=== PATIENT | male | born 1965 | race American Indian/Alaskan Native ===

== ENCOUNTER 2017-08-25 13:20 | Emergency (ER) | payer OTHER, SELFPAY ==
[2017-08-25 13:31] VITALS: BP 172/100; PULSE 73; RESP 16; TEMP 36.8; O2SAT 99
--- NOTE | 2017-08-25 14:17 | PC.NURSE ---
pt reports having three shots of expresso and coffee before dizziness occurred.
[2017-08-25 14:30] VITALS: BP 144/88; PULSE 79; RESP 20; O2SAT 98
--- NOTE | 2017-08-25 14:39 | ED.DIZZY ---
HPI - Dizziness General Chief Complaint: Dizziness Stated Complaint: HIGH BLOOD PRESSURE,FEELING FAINT Time Seen by Provider: 08/25/17 14:33 Source: patient Mode of arrival: ambulatory Limitations: no limitations History of Present Illness HPI Narrative: Patient is a 51-year-old male presenting with lightheadedness. He states that while working today he felt extremely dizzy lightheaded on room very nauseous. He then had his blood pressure taken on it was 230/110. He admits that he had 3 cups of coffee and a quadruple shot of expressive which is something he does not normally do usually only has 1 cup of coffee. He also had not eaten since 4:00 a.m. this morning. He overall is feeling much better. Our he does state that he was taken off his lisinopril a few months back while he was dieting and exercising he has not been exercising as much she is worried that the blood pressure tripped up. A few days ago he recheck his blood pressure at 1 more and it was again with a systolic of 140. He would like to be restarted on his lisinopril. MD complaint: lightheadedness Related Data Home Medications Medication Instructions Recorded Confirmed methadone [Methadose] 40 mg PO #0 03/19/16 Previous Rx's Medication Instructions Recorded ondansetron [Zofran ODT] 4 mg SUBLINGUAL Q6HP PRN #20 odt 03/20/16 lisinopril 5 mg PO DAILY #30 tab 08/25/17 Allergies Allergy/AdvReac Type Severity Reaction Status Date / Time codeine [CODEINE] Allergy Unknown Unverified 06/19/17 13:05 Review of Systems Review of Systems GENERAL: Denies chills, fatigue, malaise, fever, sweats, travel HEENT: Denies sinus pain, ear pain, sore throat, difficulty swallowing, neck pain RESPIRATORY: Denies dyspnea, cough, wheezing, hemoptysis, sputum. CARDIOVASCULAR: Denies chest pain, palpitations, orthopnea, edema GASTROINTESTINAL: Denies nausea, vomiting, abdominal pain, diarrhea, constipation, melena. : Denies dysuria, frequency, incontinence, hematuria, urinary retention, flank pain. MUSCULOSKELETAL: Denies weakness, joint pain, or bony pain SKIN: No rash, no erythema, no pruritus NEUROLOGIC: See HPI PSYCHIATRIC: No concerning psychosocial issues. 12 point review of systems is negative except for those stated above and HPI [facility] Medical History Hypertension (Acute) Exam Initial Vital Signs Initial Vital Signs: Vital Signs Temperature 98.2 F 08/25/17 13:31 Pulse Rate 73 08/25/17 13:31 Respiratory Rate 16 08/25/17 13:31 Blood Pressure 172/100 H 08/25/17 13:31 Pulse Oximetry 99 08/25/17 13:31 GENERAL: Well-appearing, well-nourished and in no acute distress. HEENT: Head atraumatic,EOMI, pupils reactive, face symmetric, moist mucous membranes CARDIOVASCULAR: Regular rate and rhythm without murmurs, rubs or gallops. RESPIRATORY: Breath sounds equal bilaterally, no wheezes rales or rhonchi. ABDOMEN: Soft, nontender. Normoactive bowel sounds all 4 quadrants. No guarding or rebound. EXTREMITIES: Normal range of motion, no clubbing or edema. Neurovascularly intact NEUROLOGICAL: Alert and oriented x4.Normal gait and speech. Cranial nerves II through XII grossly intact. Good [id number], good [id number], strength equal bilaterally, no dysarthria or aphasia, sensation in tact to soft touch bilaterally, no visual changes, no facial droop SKIN: Warm, dry, no laceration, no petechiae, no rashes or lesions. Course Orders Ordered: ED Orders 08/25/17 13:45 EKG-12 Lead Stat Vital Signs - 8 hr 08/25/17 13:31 08/25/17 14:30 08/25/17 15:04 Temperature 98.2 F Pulse Rate 73 79 91 H Respiratory Rate 16 20 20 Blood Pressure 172/100 H 144/88 H Blood Pressure [Right Arm] 144/88 H Pulse Oximetry 99 98 97 [facility] - Dizziness ECG Data Prior ECG tracings: available for review Interpretation: Normal sinus rhythm rate [address] changes similar to previous EKG on in 2017 [facility] Narrative Medical decision making narrative: Patient is ambulatory he is feeling much better. We discussed possible blood work and IV however at this time he does not feel like indicated he really thinks that is likely due to caffeine and I do agree. He did not pass out there is no syncopal episode he got extremely dizzy lightheaded. Discharge Plan Departure Patient Disposition: Home, Self-Care Clinical Impression: Near syncope Discharge Date/Time: 08/25/17 15:05 Interventions: ED Discharge Assessment Last Done: 08/25/17 15:04 Instructions: DI for Syncope in Adults (Fainting) Activity Restrictions/Additional Instructions: *You have been diagnosed with near syncope, close to pain *What to do: Likely due to excess caffeine today, please see her primary care provider in regards to further blood pressure management I will refill and start the lisinopril medication as previously prescribed *Continue to take medications as directed Restart lisinopril at 5 mg once a day *Follow up with your primary care provider in 2-3 days *Return to ER if you should have any new, worsening or concerning symptoms Prescriptions: New lisinopril 5 mg tablet 5 mg PO DAILY Qty: 30 RF: 0 No Action methadone [Methadose] 40 MG tablet,soluble 40 mg PO Qty: 0 RF: 0 ondansetron [Zofran ODT] 4 MG tablet,disintegrating 4 mg Sublingual Q6HP PRNQty: 20 RF: 0 Referrals: Mady Kumar MD [Primary Care Provider] -
--- NOTE | 2017-08-25 14:59 | ED_ITS ---
HPI - Dizziness General Chief Complaint: Dizziness Stated Complaint: HIGH BLOOD PRESSURE,FEELING FAINT Time Seen by Provider: 08/25/17 14:33 Source: patient Mode of arrival: ambulatory Limitations: no limitations History of Present Illness HPI Narrative: Patient is a 51-year-old male presenting with lightheadedness. He states that while working today he felt extremely dizzy lightheaded on room very nauseous. He then had his blood pressure taken on it was 230/110. He admits that he had 3 cups of coffee and a quadruple shot of expressive which is something he does not normally do usually only has 1 cup of coffee. He also had not eaten since 4:00 a.m. this morning. He overall is feeling much better. Our he does state that he was taken off his lisinopril a few months back while he was dieting and exercising he has not been exercising as much she is worried that the blood pressure tripped up. A few days ago he recheck his blood pressure at 1 more and it was again with a systolic of 140. He would like to be restarted on his lisinopril. MD complaint: lightheadedness Related Data Home Medications Medication Instructions Recorded Confirmed methadone [Methadose] 40 mg PO #0 03/19/16 Previous Rx's Medication Instructions Recorded ondansetron [Zofran ODT] 4 mg SUBLINGUAL Q6HP PRN #20 odt 03/20/16 lisinopril 5 mg PO DAILY #30 tab 08/25/17 Allergies Allergy/AdvReac Type Severity Reaction Status Date / Time codeine [CODEINE] Allergy Unknown Unverified 06/19/17 13:05 Review of Systems Review of Systems GENERAL: Denies chills, fatigue, malaise, fever, sweats, travel HEENT: Denies sinus pain, ear pain, sore throat, difficulty swallowing, neck pain RESPIRATORY: Denies dyspnea, cough, wheezing, hemoptysis, sputum. CARDIOVASCULAR: Denies chest pain, palpitations, orthopnea, edema GASTROINTESTINAL: Denies nausea, vomiting, abdominal pain, diarrhea, constipation, melena. : Denies dysuria, frequency, incontinence, hematuria, urinary retention, flank pain. MUSCULOSKELETAL: Denies weakness, joint pain, or bony pain SKIN: No rash, no erythema, no pruritus NEUROLOGIC: See HPI PSYCHIATRIC: No concerning psychosocial issues. 12 point review of systems is negative except for those stated above and HPI [facility] Medical History Hypertension (Acute) Exam Initial Vital Signs Initial Vital Signs: Vital Signs Temperature 98.2 F 08/25/17 13:31 Pulse Rate 73 08/25/17 13:31 Respiratory Rate 16 08/25/17 13:31 Blood Pressure 172/100 H 08/25/17 13:31 Pulse Oximetry 99 08/25/17 13:31 GENERAL: Well-appearing, well-nourished and in no acute distress. HEENT: Head atraumatic,EOMI, pupils reactive, face symmetric, moist mucous membranes CARDIOVASCULAR: Regular rate and rhythm without murmurs, rubs or gallops. RESPIRATORY: Breath sounds equal bilaterally, no wheezes rales or rhonchi. ABDOMEN: Soft, nontender. Normoactive bowel sounds all 4 quadrants. No guarding or rebound. EXTREMITIES: Normal range of motion, no clubbing or edema. Neurovascularly intact NEUROLOGICAL: Alert and oriented x4.Normal gait and speech. Cranial nerves II through XII grossly intact. Good lhtqkv-[id number]-srzb, good wejw-yt-ajee, strength equal bilaterally, no dysarthria or aphasia, sensation in tact to soft touch bilaterally, no visual changes, no facial droop SKIN: Warm, dry, no laceration, no petechiae, no rashes or lesions. Course Orders Ordered: ED Orders 08/25/17 13:45 EKG-12 Lead Stat Vital Signs - 8 hr 08/25/17 13:31 08/25/17 14:30 08/25/17 15:04 Temperature 98.2 F Pulse Rate 73 79 91 H Respiratory Rate 16 20 20 Blood Pressure 172/100 H 144/88 H Blood Pressure [Right Arm] 144/88 H Pulse Oximetry 99 98 97 [facility] - Dizziness ECG Data Prior ECG tracings: available for review Interpretation: Normal sinus rhythm rate [address] changes similar to previous EKG on in 2017 [facility] Narrative Medical decision making narrative: Patient is ambulatory he is feeling much better. We discussed possible blood work and IV however at this time he does not feel like indicated he really thinks that is likely due to caffeine and I do agree. He did not pass out there is no syncopal episode he got extremely dizzy lightheaded. Discharge Plan Departure Patient Disposition: Home, Self-Care Clinical Impression: Near syncope Discharge Date/Time: 08/25/17 15:05 Interventions: ED Discharge Assessment Last Done: 08/25/17 15:04 Instructions: DI for Syncope in Adults (Fainting) Activity Restrictions/Additional Instructions: *You have been diagnosed with near syncope, close to pain *What to do: Likely due to excess caffeine today, please see her primary care provider in regards to further blood pressure management I will refill and start the lisinopril medication as previously prescribed *Continue to take medications as directed Restart lisinopril at 5 mg once a day *Follow up with your primary care provider in 2-3 days *Return to ER if you should have any new, worsening or concerning symptoms Prescriptions: New lisinopril 5 mg tablet 5 mg PO DAILY Qty: 30 RF: 0 No Action methadone [Methadose] 40 MG tablet,soluble 40 mg PO Qty: 0 RF: 0 ondansetron [Zofran ODT] 4 MG tablet,disintegrating 4 mg Sublingual Q6HP PRNQty: 20 RF: 0 Referrals: Mady Kumar MD [Primary Care Provider] -
[2017-08-25 15:04] VITALS: BP 144/88; PULSE 91; RESP 20; O2SAT 97
== END 2017-08-25 15:05 | disposition home or self-care (01) ==
PROVIDERS: Emergency Provider Emergency Medicine; Family Provider Family Medicine; PCP Family Medicine
DX: R55 Syncope and collapse (principal)
CPT/HCPCS: 93005; 99282; 99283

== ENCOUNTER 2018-02-17 14:35 | Inpatient (IN) | payer OTHER, SELFPAY ==
[2018-02-17] VITALS (18 sets, daily range): BP systolic 100–132; BP diastolic 59–90; PULSE 74–95; RESP 11–18; TEMP 36.6–37.6; O2SAT 13–100; BMI 40.7
--- NOTE | 2018-02-17 | PATH_ITS ---
[facility] Accession Number: [id number] . 01 Material submitted: . APPENDIX . 02 Diagnosis: Appendix, Appendectomy: Acute suppurative appendicitis with microscopic perforation and serositis. Negative for dysplasia or malignancy. [facility]/02/19/2018 . 02 Electronically signed: . Meryl Reynolds MD, Pathologist NPI- [id number] . 01 Gross description: . Received in formalin, labeled appendix, is an intact appendix (length-8.0 cm, diameter-0.8 cm) with holbrook-pink smooth and shiny serosa and attached mesoappendix (up to 2.2 cm in depth). The resection margin is received opened. The lumen contains pineda-pink solid soft material. The wall is up to 0.2 cm thick. No nodules, masses or lesions are identified. The resection margin is inked black. Section code: (A1) resection margin en face and three additional serial sections; (A2) one-half of the bivalved tip. ([id number]) /[facility] . 02 Pathologist provided ICD-10: K35.20 . 02 CPT . 792881 Performed at: 01 [facility] [address], [place], [place] [id number] MD Sameer Mtz MD Phone: [phone] Performed at: 02 [facility] [address] [place], [place] [id number] MD Meryl Reynolds MD Phone: [phone]
--- NOTE | 2018-02-17 14:36 | ED.ABDPAIN ---
HPI - Abdominal Pain <JUNO Lin - Last Filed: 02/17/18 21:27> General Chief Complaint: Abdominal Pain Stated Complaint: middle abdomen pain Time Seen by Provider: 02/17/18 14:36 Source: patient Mode of arrival: ambulatory Limitations: no limitations History of Present Illness HPI narrative: 52 year old with history of hypertension and is a nonsmoker here for complaint of pain to his right lower quadrant that started last night. He denies any trauma to the area. He reports increased pain with movement of the torso. He has had some nausea however no vomiting. No fevers. No urinary symptoms. Last bowel movement was yesterday and was unremarkable. He denies any prior abdominal surgeries. He has only had fluids today is at decreased appetite today. MD complaint: abdominal pain Related Data Home Medications Medication Instructions Recorded Confirmed ibuprofen 1 dose PO PRN PRN 02/17/18 02/17/18 Previous Rx's Medication Instructions Recorded lisinopril 5 mg PO DAILY #30 tab 08/25/17 docusate sodium [Colace] 100 mg PO BID #14 cap 02/20/18 levofloxacin [Levaquin] 750 mg PO DAILY #7 tab 02/20/18 metronidazole [Flagyl] 500 mg PO TID #21 tab 02/20/18 oxycodone 5 mg PO Q3H PRN #30 tab 02/20/18 sennosides [Senokot] 8.6 mg PO BEDTIME #10 tab 02/20/18 Allergies Allergy/AdvReac Type Severity Reaction Status Date / Time codeine [CODEINE] Allergy Unknown Hives Verified 02/17/18 14:57 Review of Systems <JUNO Lin - Last Filed: 02/17/18 21:27> Constitutional Denies chills, Denies fever(s), Denies lethargy and Denies weakness ENT Ears, Nose, Mouth, and Throat: Denies change in voice, Denies neck pain and Denies sore throat Cardiovascular Denies chest pain, Denies irregular heart rhythm, Denies lightheadedness, Denies palpitations, Denies dyspnea, Denies dyspnea on exertion and Denies orthopnea Respiratory Denies cough, Denies dyspnea, Denies dyspnea on exertion and Denies wheezing Gastrointestinal Gastrointestinal: Reports abdominal pain Genitourinary Denies hematuria, Denies flank pain, Denies urinary incontinence and Denies urinary urgency Musculoskeletal Denies neck pain Integumentary/Breasts Denies pruritus, Denies erythema, Denies rash and Denies wounds Neurologic Denies confusion and Denies weakness Psychiatric Denies anxiety, Denies confusion, Denies depression, Denies homicidal ideation and Denies suicidal ideation Endocrine Denies palpitations Hematologic/Lymphatic Denies easy bruising Allergic/Immunologic Denies wheezing Exam <JUNO Lin - Last Filed: 02/17/18 21:27> Initial Vital Signs Initial Vital Signs: Vital Signs Temperature 99.1 F 02/17/18 14:42 Pulse Rate 95 H 02/17/18 14:42 Respiratory Rate 16 02/17/18 14:42 Blood Pressure 129/77 02/17/18 14:42 Pulse Oximetry 98 02/17/18 14:42 Const General: cooperative and well developed Nutritional Appearance: well nourished Orientation: alert, awake, oriented x3 and not confused HENMT Mouth: oral mucosae normal and moist mucous membranes Eyes General: appearance normal, both eyes and all related structures Conjunctivae: conjunctivae normal Sclera: sclerae normal Pupils: PERRL EOM: EOM intact bilaterally Resp Effort & Inspection: normal respiratory effort, able to speak in complete sentences, no respiratory distress and no use of accessory muscles Auscultation: clear to auscultation bilaterally, no rales, no rhonchi and no wheezes Cardio Rate: regular rate Rhythm: regular rhythm Heart Sounds: no click, no gallops, no murmurs and no rubs GI Inspection: non-distended Palpation: soft, no hepatosplenomegaly, No guarding, No pulsatile mass and tender (Tenderness to the umbilical and right lower quadrant. Positive rebound tenderness) Auscultation: normal bowel sounds General: No CVA tenderness Neuro General: alert, oriented x3, gait normal and no focal motor deficits Speech: speech normal <River Corona DO - Last Filed: 02/21/18 20:47> Initial Vital Signs Initial Vital Signs: Vital Signs Temperature 99.1 F 02/17/18 14:42 Pulse Rate 95 H 02/17/18 14:42 Respiratory Rate 16 02/17/18 14:42 Blood Pressure 129/77 02/17/18 14:42 Pulse Oximetry 98 02/17/18 14:42 Course <JUNO Lin - Last Filed: 02/17/18 21:27> Orders Ordered: Discontinued Medications Acetaminophen (Tylenol) 650 mg PO Q6HR PRN PRN Reason: As Needed for Fever/Mild Pain Last Admin: 02/19/18 14:50 Dose: 325 mg Bupivacaine HCl/Epinephrine Bitart (Sensorcaine 0.5% W/ Epi (Pf)) 30 ml INJ NOW ONE Stop: 02/17/18 17:35 Last Admin: 02/17/18 17:35 Dose: 15 ml Sodium Chloride 1,000 ml/ (Bacitracin 50,000 unit) 0 ml IRR NOW ONE Stop: 02/17/18 17:35 Last Admin: 02/17/18 17:35 Dose: 50,000 irrig.soln Enoxaparin Sodium (Lovenox) 40 mg SUBCUT DAILY [facility] Last Admin: 02/20/18 09:02 Dose: 40 mg Admin: 02/19/18 08:47 Dose: 40 mg Admin: 02/18/18 08:26 Dose: 40 mg Fentanyl (Sublimaze) 25 mcg IV Q5MIN PRN PRN Reason: Pain, Mild (1-3) Fentanyl (Sublimaze) 50 mcg IV Q5MIN PRN PRN Reason: Pain, Moderate (4-6) Last Admin: 02/17/18 18:28 Dose: 50 mcg Admin: 02/17/18 18:20 Dose: 50 mcg Fentanyl (Sublimaze) 100 mcg IV Q5MIN PRN PRN Reason: Pain, Severe (7-10) Hydromorphone HCl (Dilaudid) 1 mg IV NOW ONE Stop: 02/17/18 14:49 Last Admin: 02/17/18 15:07 Dose: 1 mg Hydromorphone HCl (Dilaudid) 1 mg IV Q4HR PRN PRN Reason: Pain, Moderate (4-6) Last Admin: 02/18/18 11:40 Dose: 1 mg Admin: 02/18/18 01:13 Dose: 1 mg Admin: 02/17/18 19:41 Dose: 1 mg Sodium Chloride (Normal Saline 0.9%) 1,000 mls @ 1,000 mls/hr IV BOLUS ONE Stop: 02/17/18 15:47 Last Infusion: 02/17/18 16:39 Dose: 0 mls/hr Admin: 02/17/18 15:07 Dose: 1,000 mls/hr Lactated Ringer's (Lactated Ringers) 1,000 mls @ 100 mls/hr IV NOW ONE Stop: 02/18/18 03:17 Last Infusion: 02/17/18 19:23 Dose: 0 mls/hr Admin: 02/17/18 18:21 Dose: 100 mls/hr Infusion: 02/17/18 18:21 Dose: 100 mls/hr Admin: 02/17/18 17:05 Dose: 100 mls/hr Ceftriaxone Sodium/Dextrose (Rocephin) 2 gm in 50 mls @ 100 mls/hr IV NOW ONE Stop: 02/17/18 18:03 Last Infusion: 02/17/18 17:20 Dose: 0 mls/hr Admin: 02/17/18 17:14 Dose: 100 mls/hr Piperacillin/Tazobactam/Dextrose (Zosyn) 3.375 gm in 50 mls @ 100 mls/hr IV Q6H [facility] Last Admin: 02/20/18 12:50 Dose: 100 mls/hr Infusion: 02/20/18 09:01 Dose: 100 mls/hr Admin: 02/20/18 06:10 Dose: 100 mls/hr Infusion: 02/20/18 00:20 Dose: 0 mls/hr Admin: 02/19/18 23:41 Dose: 100 mls/hr Infusion: 02/19/18 19:29 Dose: 0 mls/hr Admin: 02/19/18 18:22 Dose: 100 mls/hr Infusion: 02/19/18 13:04 Dose: 100 mls/hr Admin: 02/19/18 11:30 Dose: 100 mls/hr Infusion: 02/19/18 08:44 Dose: 100 mls/hr Admin: 02/19/18 05:33 Dose: 100 mls/hr Infusion: 02/19/18 00:35 Dose: 0 mls/hr Admin: 02/19/18 00:05 Dose: 100 mls/hr Infusion: 02/18/18 20:10 Dose: 100 mls/hr Admin: 02/18/18 19:37 Dose: 100 mls/hr Infusion: 02/18/18 13:20 Dose: 0 mls/hr Admin: 02/18/18 12:46 Dose: 100 mls/hr Infusion: 02/18/18 07:25 Dose: 0 mls/hr Admin: 02/18/18 05:56 Dose: 100 mls/hr Infusion: 02/18/18 00:18 Dose: 0 mls/hr Admin: 02/17/18 23:38 Dose: 100 mls/hr Infusion: 02/17/18 19:28 Dose: 0 mls/hr Admin: 02/17/18 18:40 Dose: 100 mls/hr Dextrose/Sodium Chloride (Dextrose 5%-0.45% Ns) 1,000 mls @ 100 mls/hr IV CONT [facility] Last Infusion: 02/19/18 13:08 Dose: 100 mls/hr Admin: 02/18/18 21:58 Dose: 100 mls/hr Infusion: 02/18/18 18:23 Dose: 100 mls/hr Admin: 02/18/18 08:23 Dose: 100 mls/hr Infusion: 02/18/18 05:41 Dose: 100 mls/hr Admin: 02/17/18 19:41 Dose: 100 mls/hr Influenza Virus Vaccine (Flu Vaccine) 0.5 ml IM .ONCE ONE Stop: 02/18/18 09:01 Last Admin: 02/19/18 09:17 Dose: Lisinopril (Zestril) 5 mg PO DAILY [facility] Last Admin: 02/20/18 09:00 Dose: 5 mg Admin: 02/19/18 08:47 Dose: 5 mg Ondansetron HCl (Zofran) 4 mg IV NOW ONE Stop: 02/17/18 14:49 Last Admin: 02/17/18 15:07 Dose: 4 mg Ondansetron HCl (Zofran) 4 mg IV NOW PRN PRN Reason: Nausea And Vomiting Ondansetron HCl (Zofran) 4 mg IV Q6HR PRN PRN Reason: Nausea And Vomiting Last Admin: 02/18/18 16:30 Dose: 4 mg Oxycodone/Acetaminophen (Percocet 5/325) 1 tab PO Q30MIN PRN PRN Reason: Mild or moderate pain Oxycodone/Acetaminophen (Percocet 5/325) 1 tab PO Q4HR PRN PRN Reason: Pain, Moderate (4-6) Last Admin: 02/18/18 00:18 Dose: 1 tab Admin: 02/17/18 19:58 Dose: 1 tab Oxycodone/Acetaminophen (Percocet 5/325) 2 tab PO Q4HR PRN PRN Reason: Pain, Severe (7-10) Last Admin: 02/20/18 12:54 Dose: 1 tab Admin: 02/20/18 09:00 Dose: 1 tab Admin: 02/20/18 02:55 Dose: 1 tab Admin: 02/19/18 21:26 Dose: 2 tab Admin: 02/19/18 17:29 Dose: 1 tab Admin: 02/19/18 13:22 Dose: 1 tab Admin: 02/19/18 09:14 Dose: 1 tab Admin: 02/19/18 05:32 Dose: 1 tab Admin: 02/19/18 01:30 Dose: 1 tab Admin: 02/18/18 21:23 Dose: 1 tab Admin: 02/18/18 16:37 Dose: 1 tab Admin: 02/18/18 12:46 Dose: 2 tab Admin: 02/18/18 08:25 Dose: 2 tab Admin: 02/18/18 04:02 Dose: 2 tab Ranitidine HCl (Zantac) 150 mg PO BID [facility] Last Admin: 02/20/18 09:01 Dose: 150 mg Admin: 02/19/18 20:20 Dose: Not Given Admin: 02/19/18 08:47 Dose: 150 mg Admin: 02/18/18 21:23 Dose: 150 mg Admin: 02/18/18 08:25 Dose: 150 mg Admin: 02/17/18 19:56 Dose: 150 mg Sodium Chloride (Normal Saline 0.9% Flush) 10 ml IV BID [facility] Last Admin: 02/20/18 09:01 Dose: 10 ml Sodium Chloride (Normal Saline 0.9% Flush) 10 ml IV PRN PRN PRN Reason: Flush Vital Signs - 8 hr 02/17/18 14:42 02/17/18 15:01 02/17/18 15:07 Temperature 99.1 F 99.4 F Pulse Rate 95 H 81 Respiratory Rate 16 15 Blood Pressure 129/77 Blood Pressure [Right Arm] 121/72 Pulse Oximetry 98 96 02/17/18 16:00 02/17/18 16:44 02/17/18 18:06 Temperature 99.7 F H Pulse Rate 74 77 88 Respiratory Rate 16 16 11 L Blood Pressure 132/90 Blood Pressure [Right Arm] 121/68 119/64 Pulse Oximetry 99 100 98 02/17/18 18:11 02/17/18 18:15 02/17/18 18:20 Temperature Pulse Rate 85 85 82 Respiratory Rate 12 16 Blood Pressure 119/59 L 120/80 113/79 Blood Pressure [Right Arm] Pulse Oximetry 13 L 97 92 02/17/18 18:35 02/17/18 18:50 02/17/18 19:00 Temperature Pulse Rate 80 78 82 Respiratory Rate 13 15 18 Blood Pressure 105/66 107/73 110/74 Blood Pressure [Right Arm] Pulse Oximetry 97 93 93 02/17/18 19:19 Temperature 97.9 F Pulse Rate 81 Respiratory Rate 16 Blood Pressure 111/63 Blood Pressure [Right Arm] Pulse Oximetry 92 <River Corona DO - Last Filed: 02/21/18 20:47> Orders Ordered: Discontinued Medications Acetaminophen (Tylenol) 650 mg PO Q6HR PRN PRN Reason: As Needed for Fever/Mild Pain Last Admin: 02/19/18 14:50 Dose: 325 mg Bupivacaine HCl/Epinephrine Bitart (Sensorcaine 0.5% W/ Epi (Pf)) 30 ml INJ NOW ONE Stop: 02/17/18 17:35 Last Admin: 02/17/18 17:35 Dose: 15 ml Sodium Chloride 1,000 ml/ (Bacitracin 50,000 unit) 0 ml IRR NOW ONE Stop: 02/17/18 17:35 Last Admin: 02/17/18 17:35 Dose: 50,000 irrig.soln Enoxaparin Sodium (Lovenox) 40 mg SUBCUT DAILY [facility] Last Admin: 02/20/18 09:02 Dose: 40 mg Admin: 02/19/18 08:47 Dose: 40 mg Admin: 02/18/18 08:26 Dose: 40 mg Fentanyl (Sublimaze) 25 mcg IV Q5MIN PRN PRN Reason: Pain, Mild (1-3) Fentanyl (Sublimaze) 50 mcg IV Q5MIN PRN PRN Reason: Pain, Moderate (4-6) Last Admin: 02/17/18 18:28 Dose: 50 mcg Admin: 02/17/18 18:20 Dose: 50 mcg Fentanyl (Sublimaze) 100 mcg IV Q5MIN PRN PRN Reason: Pain, Severe (7-10) Hydromorphone HCl (Dilaudid) 1 mg IV NOW ONE Stop: 02/17/18 14:49 Last Admin: 02/17/18 15:07 Dose: 1 mg Hydromorphone HCl (Dilaudid) 1 mg IV Q4HR PRN PRN Reason: Pain, Moderate (4-6) Last Admin: 02/18/18 11:40 Dose: 1 mg Admin: 02/18/18 01:13 Dose: 1 mg Admin: 02/17/18 19:41 Dose: 1 mg Sodium Chloride (Normal Saline 0.9%) 1,000 mls @ 1,000 mls/hr IV BOLUS ONE Stop: 02/17/18 15:47 Last Infusion: 02/17/18 16:39 Dose: 0 mls/hr Admin: 02/17/18 15:07 Dose: 1,000 mls/hr Lactated Ringer's (Lactated Ringers) 1,000 mls @ 100 mls/hr IV NOW ONE Stop: 02/18/18 03:17 Last Infusion: 02/17/18 19:23 Dose: 0 mls/hr Admin: 02/17/18 18:21 Dose: 100 mls/hr Infusion: 02/17/18 18:21 Dose: 100 mls/hr Admin: 02/17/18 17:05 Dose: 100 mls/hr Ceftriaxone Sodium/Dextrose (Rocephin) 2 gm in 50 mls @ 100 mls/hr IV NOW ONE Stop: 02/17/18 18:03 Last Infusion: 02/17/18 17:20 Dose: 0 mls/hr Admin: 02/17/18 17:14 Dose: 100 mls/hr Piperacillin/Tazobactam/Dextrose (Zosyn) 3.375 gm in 50 mls @ 100 mls/hr IV Q6H [facility] Last Admin: 02/20/18 12:50 Dose: 100 mls/hr Infusion: 02/20/18 09:01 Dose: 100 mls/hr Admin: 02/20/18 06:10 Dose: 100 mls/hr Infusion: 02/20/18 00:20 Dose: 0 mls/hr Admin: 02/19/18 23:41 Dose: 100 mls/hr Infusion: 02/19/18 19:29 Dose: 0 mls/hr Admin: 02/19/18 18:22 Dose: 100 mls/hr Infusion: 02/19/18 13:04 Dose: 100 mls/hr Admin: 02/19/18 11:30 Dose: 100 mls/hr Infusion: 02/19/18 08:44 Dose: 100 mls/hr Admin: 02/19/18 05:33 Dose: 100 mls/hr Infusion: 02/19/18 00:35 Dose: 0 mls/hr Admin: 02/19/18 00:05 Dose: 100 mls/hr Infusion: 02/18/18 20:10 Dose: 100 mls/hr Admin: 02/18/18 19:37 Dose: 100 mls/hr Infusion: 02/18/18 13:20 Dose: 0 mls/hr Admin: 02/18/18 12:46 Dose: 100 mls/hr Infusion: 02/18/18 07:25 Dose: 0 mls/hr Admin: 02/18/18 05:56 Dose: 100 mls/hr Infusion: 02/18/18 00:18 Dose: 0 mls/hr Admin: 02/17/18 23:38 Dose: 100 mls/hr Infusion: 02/17/18 19:28 Dose: 0 mls/hr Admin: 02/17/18 18:40 Dose: 100 mls/hr Dextrose/Sodium Chloride (Dextrose 5%-0.45% Ns) 1,000 mls @ 100 mls/hr IV CONT [facility] Last Infusion: 02/19/18 13:08 Dose: 100 mls/hr Admin: 02/18/18 21:58 Dose: 100 mls/hr Infusion: 02/18/18 18:23 Dose: 100 mls/hr Admin: 02/18/18 08:23 Dose: 100 mls/hr Infusion: 02/18/18 05:41 Dose: 100 mls/hr Admin: 02/17/18 19:41 Dose: 100 mls/hr Influenza Virus Vaccine (Flu Vaccine) 0.5 ml IM .ONCE ONE Stop: 02/18/18 09:01 Last Admin: 02/19/18 09:17 Dose: Lisinopril (Zestril) 5 mg PO DAILY [facility] Last Admin: 02/20/18 09:00 Dose: 5 mg Admin: 02/19/18 08:47 Dose: 5 mg Ondansetron HCl (Zofran) 4 mg IV NOW ONE Stop: 02/17/18 14:49 Last Admin: 02/17/18 15:07 Dose: 4 mg Ondansetron HCl (Zofran) 4 mg IV NOW PRN PRN Reason: Nausea And Vomiting Ondansetron HCl (Zofran) 4 mg IV Q6HR PRN PRN Reason: Nausea And Vomiting Last Admin: 02/18/18 16:30 Dose: 4 mg Oxycodone/Acetaminophen (Percocet 5/325) 1 tab PO Q30MIN PRN PRN Reason: Mild or moderate pain Oxycodone/Acetaminophen (Percocet 5/325) 1 tab PO Q4HR PRN PRN Reason: Pain, Moderate (4-6) Last Admin: 02/18/18 00:18 Dose: 1 tab Admin: 02/17/18 19:58 Dose: 1 tab Oxycodone/Acetaminophen (Percocet 5/325) 2 tab PO Q4HR PRN PRN Reason: Pain, Severe (7-10) Last Admin: 02/20/18 12:54 Dose: 1 tab Admin: 02/20/18 09:00 Dose: 1 tab Admin: 02/20/18 02:55 Dose: 1 tab Admin: 02/19/18 21:26 Dose: 2 tab Admin: 02/19/18 17:29 Dose: 1 tab Admin: 02/19/18 13:22 Dose: 1 tab Admin: 02/19/18 09:14 Dose: 1 tab Admin: 02/19/18 05:32 Dose: 1 tab Admin: 02/19/18 01:30 Dose: 1 tab Admin: 02/18/18 21:23 Dose: 1 tab Admin: 02/18/18 16:37 Dose: 1 tab Admin: 02/18/18 12:46 Dose: 2 tab Admin: 02/18/18 08:25 Dose: 2 tab Admin: 02/18/18 04:02 Dose: 2 tab Ranitidine HCl (Zantac) 150 mg PO BID [facility] Last Admin: 02/20/18 09:01 Dose: 150 mg Admin: 02/19/18 20:20 Dose: Not Given Admin: 02/19/18 08:47 Dose: 150 mg Admin: 02/18/18 21:23 Dose: 150 mg Admin: 02/18/18 08:25 Dose: 150 mg Admin: 02/17/18 19:56 Dose: 150 mg Sodium Chloride (Normal Saline 0.9% Flush) 10 ml IV BID [facility] Last Admin: 02/20/18 09:01 Dose: 10 ml Sodium Chloride (Normal Saline 0.9% Flush) 10 ml IV PRN PRN PRN Reason: Flush Vital Signs - 8 hr 02/17/18 14:42 02/17/18 15:01 02/17/18 15:07 Temperature 99.1 F 99.4 F Pulse Rate 95 H 81 Respiratory Rate 16 15 Blood Pressure 129/77 Blood Pressure [Right Arm] 121/72 Pulse Oximetry 98 96 02/17/18 16:00 02/17/18 16:44 02/17/18 18:06 Temperature 99.7 F H Pulse Rate 74 77 88 Respiratory Rate 16 16 11 L Blood Pressure 132/90 Blood Pressure [Right Arm] 121/68 119/64 Pulse Oximetry 99 100 98 02/17/18 18:11 02/17/18 18:15 02/17/18 18:20 Temperature Pulse Rate 85 85 82 Respiratory Rate 12 16 Blood Pressure 119/59 L 120/80 113/79 Blood Pressure [Right Arm] Pulse Oximetry 13 L 97 92 02/17/18 18:35 02/17/18 18:50 02/17/18 19:00 Temperature Pulse Rate 80 78 82 Respiratory Rate 13 15 18 Blood Pressure 105/66 107/73 110/74 Blood Pressure [Right Arm] Pulse Oximetry 97 93 93 02/17/18 19:19 Temperature 97.9 F Pulse Rate 81 Respiratory Rate 16 Blood Pressure 111/63 Blood Pressure [Right Arm] Pulse Oximetry 92 MDM - Abdominal Pain <JUNO Lin - Last Filed: 02/17/18 21:27> Differential Diagnosis Differential diagnosis: Likely abdominal pain and acute appendicitis Lab Data Result diagrams: 02/17/18 14:50 02/17/18 14:50 Lab Results 02/17/18 02/17/18 02/17/18 Range/Units 14:50 14:50 14:50 WBC 13.0 H (4.5-11.0) X10^3/uL RBC 5.51 (4.5-5.9) X10^6/uL Hgb 15.3 (13.5-17.5) g/dL Hct 44.6 (41-53) % MCV 81.0 (80-100) fL MCH 27.7 (26-34) PG MCHC 34.2 (30-36) % RDW 13.9 (11.6-14.8) % Plt Count 382 (150-400) X10^3/uL Neut % (Auto) 72.7 (50-75) % Lymph % (Auto) 18.8 L (25-40) % [place] % (Auto) 7.7 (3-14) % Eos % (Auto) 0.4 L (2-4) % Baso % (Auto) 0.4 (0-2) % Neut # (Auto) 9500 H (2291-4765) /uL Sodium 140 (137-145) mmol/L Potassium 4.3 (3.4-5.1) mmol/L Chloride 101 (98-107) mmol/L Carbon Dioxide 25 (22-32) mmol/L BUN 14 (9-20) mg/dL Creatinine 1.10 (0.66-1.25) mg/dL Estimated GFR > 60.0 (>60) mL/min BUN/Creatinine Ratio 12.7 (6-22) Glucose 106 H (70-100) mg/dL Calcium 9.0 (8.4-10.2) mg/dL Total Bilirubin 0.6 (0.2-1.3) mg/dL AST 23 (17-59) IU/L ALT 34 (21-72) IU/L Alkaline Phosphatase 92 (38-126) U/L Total Protein 8.2 (6.3-8.2) g/dL Albumin 4.8 (3.5-5.0) g/dL Globulin 3.4 (1.7-4.1) g/dL Albumin/Globulin Ratio 1.4 (1.0-2.8) Lipase 78 (23-300) U/L Urine Color Yellow Urine Appearance Clear Urine pH 8.0 (4.5-8.0) Ur Specific [place] 1.015 (1.000-1.035) Urine Protein Negative (Negative) Urine Glucose (UA) Negative (Normal) g/dL Urine Ketones Negative (NEGATIVE) Urine Occult Blood Negative (Negative) Urine Nitrate Negative (Negative) Urine Bilirubin Negative (NEGATIVE) Urine Urobilinogen 0.2 (0.2) E.U./dL Ur Leukocyte Esterase Negative (NEGATIVE) Blood Type Antibody Screen 02/17/18 Range/Units 16:53 WBC (4.5-11.0) X10^3/uL RBC (4.5-5.9) X10^6/uL Hgb (13.5-17.5) g/dL Hct (41-53) % MCV (80-100) fL MCH (26-34) PG MCHC (30-36) % RDW (11.6-14.8) % Plt Count (150-400) X10^3/uL Neut % (Auto) (50-75) % Lymph % (Auto) (25-40) % [place] % (Auto) (3-14) % Eos % (Auto) (2-4) % Baso % (Auto) (0-2) % Neut # (Auto) (7775-2008) /uL Sodium (137-145) mmol/L Potassium (3.4-5.1) mmol/L Chloride (98-107) mmol/L Carbon Dioxide (22-32) mmol/L BUN (9-20) mg/dL Creatinine (0.66-1.25) mg/dL Estimated GFR (>60) mL/min BUN/Creatinine Ratio (6-22) Glucose (70-100) mg/dL Calcium (8.4-10.2) mg/dL Total Bilirubin (0.2-1.3) mg/dL AST (17-59) IU/L ALT (21-72) IU/L Alkaline Phosphatase (38-126) U/L Total Protein (6.3-8.2) g/dL Albumin (3.5-5.0) g/dL Globulin (1.7-4.1) g/dL Albumin/Globulin Ratio (1.0-2.8) Lipase (23-300) U/L Urine Color Urine Appearance Urine pH (4.5-8.0) Ur Specific [place] (1.000-1.035) Urine Protein (Negative) Urine Glucose (UA) (Normal) g/dL Urine Ketones (NEGATIVE) Urine Occult Blood (Negative) Urine Nitrate (Negative) Urine Bilirubin (NEGATIVE) Urine Urobilinogen (0.2) E.U./dL Ur Leukocyte Esterase (NEGATIVE) Blood Type O Positive Antibody Screen Negative MDM Narrative Medical decision making narrative: CBC shows elevated white count of 13 K. Chem panel and lipase were and remarkable. Urinalysis was negative for urinary tract infection. CT of the abdomen was obtained and shows acute appendicitis with no free fluid and no abscess. Contacted surgery who took patient to the operating room. Patient is admitted to hospital via OR. <River Corona DO - Last Filed: 02/21/18 20:47> Lab Data Lab Results 02/17/18 02/17/18 02/17/18 Range/Units 14:50 14:50 14:50 WBC 13.0 H (4.5-11.0) X10^3/uL RBC 5.51 (4.5-5.9) X10^6/uL Hgb 15.3 (13.5-17.5) g/dL Hct 44.6 (41-53) % MCV 81.0 (80-100) fL MCH 27.7 (26-34) PG MCHC 34.2 (30-36) % RDW 13.9 (11.6-14.8) % Plt Count 382 (150-400) X10^3/uL Neut % (Auto) 72.7 (50-75) % Lymph % (Auto) 18.8 L (25-40) % [place] % (Auto) 7.7 (3-14) % Eos % (Auto) 0.4 L (2-4) % Baso % (Auto) 0.4 (0-2) % Neut # (Auto) 9500 H (5417-0621) /uL Sodium 140 (137-145) mmol/L Potassium 4.3 (3.4-5.1) mmol/L Chloride 101 (98-107) mmol/L Carbon Dioxide 25 (22-32) mmol/L BUN 14 (9-20) mg/dL Creatinine 1.10 (0.66-1.25) mg/dL Estimated GFR > 60.0 (>60) mL/min BUN/Creatinine Ratio 12.7 (6-22) Glucose 106 H (70-100) mg/dL Calcium 9.0 (8.4-10.2) mg/dL Total Bilirubin 0.6 (0.2-1.3) mg/dL AST 23 (17-59) IU/L ALT 34 (21-72) IU/L Alkaline Phosphatase 92 (38-126) U/L Total Protein 8.2 (6.3-8.2) g/dL Albumin 4.8 (3.5-5.0) g/dL Globulin 3.4 (1.7-4.1) g/dL Albumin/Globulin Ratio 1.4 (1.0-2.8) Lipase 78 (23-300) U/L Urine Color Yellow Urine Appearance Clear Urine pH 8.0 (4.5-8.0) Ur Specific [place] 1.015 (1.000-1.035) Urine Protein Negative (Negative) Urine Glucose (UA) Negative (Normal) g/dL Urine Ketones Negative (NEGATIVE) Urine Occult Blood Negative (Negative) Urine Nitrate Negative (Negative) Urine Bilirubin Negative (NEGATIVE) Urine Urobilinogen 0.2 (0.2) E.U./dL Ur Leukocyte Esterase Negative (NEGATIVE) Blood Type Antibody Screen 02/17/18 Range/Units 16:53 WBC (4.5-11.0) X10^3/uL RBC (4.5-5.9) X10^6/uL Hgb (13.5-17.5) g/dL Hct (41-53) % MCV (80-100) fL MCH (26-34) PG MCHC (30-36) % RDW (11.6-14.8) % Plt Count (150-400) X10^3/uL Neut % (Auto) (50-75) % Lymph % (Auto) (25-40) % [place] % (Auto) (3-14) % Eos % (Auto) (2-4) % Baso % (Auto) (0-2) % Neut # (Auto) (0506-3858) /uL Sodium (137-145) mmol/L Potassium (3.4-5.1) mmol/L Chloride (98-107) mmol/L Carbon Dioxide (22-32) mmol/L BUN (9-20) mg/dL Creatinine (0.66-1.25) mg/dL Estimated GFR (>60) mL/min BUN/Creatinine Ratio (6-22) Glucose (70-100) mg/dL Calcium (8.4-10.2) mg/dL Total Bilirubin (0.2-1.3) mg/dL AST (17-59) IU/L ALT (21-72) IU/L Alkaline Phosphatase (38-126) U/L Total Protein (6.3-8.2) g/dL Albumin (3.5-5.0) g/dL Globulin (1.7-4.1) g/dL Albumin/Globulin Ratio (1.0-2.8) Lipase (23-300) U/L Urine Color Urine Appearance Urine pH (4.5-8.0) Ur Specific [place] (1.000-1.035) Urine Protein (Negative) Urine Glucose (UA) (Normal) g/dL Urine Ketones (NEGATIVE) Urine Occult Blood (Negative) Urine Nitrate (Negative) Urine Bilirubin (NEGATIVE) Urine Urobilinogen (0.2) E.U./dL Ur Leukocyte Esterase (NEGATIVE) Blood Type O Positive Antibody Screen Negative Discharge Plan Departure Patient Disposition: Admitted As Inpatient Clinical Impression: Acute appendicitis Discharge Date/Time: 02/17/18 17:37 Interventions: ED Discharge Assessment Last Done: 02/17/18 16:52 Admit Date/Time: 02/17/18 17:29 Admit Provider: Al Pickard <River Corona DO - Last Filed: 02/21/18 20:47> Cosign ED Attending Carlos Attestation: I was immediately available in the department for consultation. Documentation has been reviewed. I agree with assessment and plan.
--- NOTE | 2018-02-17 14:49 | DI.CT.S_ITS ---
PROCEDURE: CT ABDOMEN PELVIS W CON INDICATIONS: Pain to abdomen umbilical area TECHNIQUE: After the administration of oral and intravenous contrast, 5 mm thick sections acquired from the diaphragms to the symphysis. 5 mm thick coronal and sagittal reformats were performed. For radiation dose reduction, the following was used: automated exposure control, adjustment of mA and/or kV according to patient size. COMPARISON: [facility], , ABDOMEN 1 VIEW, 04/06/2016, 10:13. FINDINGS: Image quality: Excellent. ABDOMEN: Lung bases: There is mild subpleural scarring in the right lower lobe. Heart size is normal. Solid organs: No focal hepatic lesions identified. Gallbladder appears within normal limits without calcified gallstones. Biliary system is non-dilated. Pancreas enhances normally. Spleen is normal in size and enhancement. No adrenal nodules. Kidneys are normal in size and enhancement, without hydronephrosis. Peritoneum and bowel: Stomach, small bowel, and colon loops are normal in caliber and wall thickness. The appendix is thickened, measuring up to 1.1 cm in diameter, with associated periappendiceal fat stranding. This extends medially from the cecum with the tip close to midline. No free fluid or air. No loculated fluid collections. There is colonic diverticulosis without acute diverticulitis. Nodes and vessels: No retroperitoneal or mesenteric adenopathy. Aorta and inferior vena cava are normal in caliber. Miscellaneous: No ventral hernias. PELVIS: Genitourinary: Bladder wall thickness is normal. Miscellaneous: No inguinal hernias or adenopathy. Bones: No suspicious bony lesions. No vertebral body compression fractures. IMPRESSION: 1. Findings consistent with acute appendicitis without evidence of perforation. Findings discussed with JUNO Lin on 02/17/18 at 4:24 PM. Dictated by: Sameer Fuller M.D. on 02/17/2018 at 16:21 Approved by: Sameer Fuller M.D. on 02/17/2018 at 16:27
[2018-02-17 15:05] LABS: Add Manual Diff / Slide Review NO; Basophils Percent Auto 0.4 % (0-2); Eosinophils Percent Auto 0.4 % (2-4); Hematocrit 44.6 % (41-53); Hemoglobin 15.3 g/dL (13.5-17.5); Lymphocytes Percent Auto 18.8 % (25-40); Mean Corpuscular HGB Conc 34.2 % (30-36); Mean Corpuscular Hemoglobin 27.7 PG (26-34); Monocytes Percent Auto 7.7 % (3-14); Neutrophils Absolute Auto 9500 /uL (3000-5900); Neutrophils Percent Auto 72.7 % (50-75); Platelet Count 382 X10^3/uL (150-400); Red Blood Cell Count 5.51 X10^6/uL (4.5-5.9); Red Cell Distribution Width 13.9 % (11.6-14.8)
[2018-02-17] MEDS: SODIUM CHLORIDE 0.9% 1,000 ML 1000 ML IV (15:07)
[2018-02-17] MEDS: ONDANSETRON 4 MG/2 ML INJ IV (15:07)
[2018-02-17] MEDS: HYDROMORPHONE 1 MG INJ IV ×2 (15:07→19:41)
[2018-02-17 15:23] LABS: Alanine Aminotransferase 34 IU/L (21-72); Albumin 4.8 g/dL (3.5-5.0); Albumin Globulin Ratio 1.4 (1.0-2.8); Alkaline Phosphatase 92 U/L (38-126); Aspartate Aminotransferase 23 IU/L (17-59); BUN Creatinine Ratio 12.7 (6-22); Bilirubin Total 0.6 mg/dL (0.2-1.3); Blood Urea Nitrogen 14 mg/dL (9-20); Carbon Dioxide 25 mmol/L (22-32); Chloride 101 mmol/L (98-107); Estimated Glomerular Filt Rate > 60.0 mL/min (>60); Globulin 3.4 g/dL (1.7-4.1); Glucose 106 mg/dL (70-100); HEMOLYSIS < 15 (0-50); Lipase 78 U/L (23-300); Potassium 4.3 mmol/L (3.4-5.1); Sodium 140 mmol/L (137-145); Total Protein 8.2 g/dL (6.3-8.2)
[2018-02-17 15:48] LABS: Appearance Urine UA CLEAR; Bilirubin Urine UA NEGATIVE (NEGATIVE); Color Urine UA YELLOW; Glucose Urine UA NEGATIVE (Normal); Ketones Urine UA NEGATIVE (NEGATIVE); Leukocyte Esterase Urine UA NEGATIVE (NEGATIVE); Nitrite Urine UA NEGATIVE (Negative); Occult Blood Urine UA NEGATIVE (Negative); Protein Urine UA NEGATIVE (Negative); Specific Gravity Urine UA 1.015 (1.000-1.035); Urobilinogen Urine UA 0.2 E.U./dL (0.2)
[2018-02-17] MEDS: LACTATED RINGERS 1,000 ML 100 ML IV ×2 (17:05→18:21)
[2018-02-17] MEDS: CEFTRIAXONE 2 GM/50 ML FROZ.PIGGY IV (17:14)
--- NOTE | 2018-02-17 17:28 | SUR.OPER ---
Supine on padded OR bed, head on pillow, arms secured on padded arm boards at <90 degrees abduction, legs uncrossed, safety belt at thigh, tape over blanket over lower legs.
[2018-02-17] MEDS: BUPIVACAINE 0.5% W/ EPI (PF) VIAL 30 ML INJ (17:35)
[2018-02-17] MEDS: SODIUM CHLORIDE IRRIG SOLUTION 1,000 ML, BACITRACIN 50,000 UNIT IRR (17:35)
--- NOTE | 2018-02-17 17:55 | HP_ITS ---
DATE OF SERVICE: 02/17/2018, about 5 p.m. HISTORY OF PRESENT ILLNESS: The emergency room just called me about this 52-year- old white male who has had generalized and lower abdominal pain over the last 36 hours. He's had nausea but no vomiting. Pain increased in nature and he came to the emergency room this afternoon where he had a 15,000 white count and has, of course, had a CT scan of the abdomen confirming the diagnosis of acute appendicitis, uncomplicated, no abscess is noted. PAST MEDICAL HISTORY: Patient does have a history of hypertension for which he takes lisinopril 5 mg a day. Denies diabetes or myocardial infarction. PAST SURGICAL HISTORY: None. SYSTEM REVIEW: Denies chest pain or unusual shortness of breath. GI is as in HPI. is negative. Neurologic: No strokes. No seizures. PHYSICAL EXAMINATION VITAL SIGNS: Temperature is 99, blood pressure 140/85, heart rate in the low 80s. HEENT: Ears, nose, and throat are normal. NECK: No adenopathy. CHEST: Lungs are clear. HEART: Regular rhythm. No murmur. ABDOMEN: Tender generally in the lower abdomen, particularly now in the right lower quadrant with guarding. Point tenderness in McBurney point with rebound tenderness. OVERALL IMPRESSION: Acute uncomplicated appendicitis. PLAN: Urgent surgery. Patient understands and agrees to the plan. He's been given IV Rocephin 2 g. Elder Bailey - Pipe/ doc#: [id number]/job#: [id number] dd: 02/17/2018 17:13:00 dt: 02/17/2018 17:46:00 DICTATING /COPIES TO: Al Pickard MD COPIES MNE: VÍCTOR
[2018-02-17] MEDS: fentaNYL 100 MCG/2 ML INJ 50 MCG IV ×2 (18:20→18:28)
[2018-02-17] MEDS: PIPERACILLIN-TAZO 3.375 GM/50 ML FROZ.PIGGY IV ×2 (18:40→23:38)
--- NOTE | 2018-02-17 18:52 | SUR.PHASEI ---
Young ring to patient, on lt hand.
--- NOTE | 2018-02-17 19:03 | SUR.PHASEI ---
Report called to Mei
--- NOTE | 2018-02-17 19:24 | SUR.PHASEI ---
Pt transferred to the floor. VS stable. IV saline locked. Abd drsg cdi. drain patent, small amt of sero-sang fluid to drain. Report to Mei. Belongings bag x3 and pts ring with patient.
[2018-02-17] MEDS: DEXTROSE 5%-0.45% NS 1,000 ML 100 ML IV (19:41)
[2018-02-17] MEDS: OXYCODONE/ACETAMINOPHEN 5/325 TABLET 1 TAB PO (19:58)
--- NOTE | 2018-02-17 20:25 | PC.NURSE ---
1914 - Patient brought to room 217 from PACU in bed by nursing staff. Alert and oriented with pleasant affect. States pain is 10/10, but talks and laughs, will medicate per emar. Able to move all extremities. 96% on room air. Dressing to abdomen C/D/I. PERI in place draining serosanguinous fluid. Oriented to room and call light, call light within reach.
[2018-02-18] MEDS: OXYCODONE/ACETAMINOPHEN 5/325 TABLET 1 TAB PO (00:18)
[2018-02-18] MEDS: HYDROMORPHONE 1 MG INJ IV ×2 (01:13→11:40)
--- NOTE | 2018-02-18 01:25 | OP_ITS ---
DATE OF SERVICE: 02/17/2018 PREOP DIAGNOSIS: Acute appendicitis. POSTOP DIAGNOSIS: Acute appendicitis with severe pelvic peritonitis. No abscess discovered. PROCEDURE: Appendectomy. SURGEON: Al Pickard MD ANESTHESIA: General endotracheal. DESCRIPTION OF PROCEDURE: The patient was given a general endotracheal anesthetic, prepped and draped in sterile fashion, exposing the right lower quadrant of the abdomen. He was properly identified during surgical pause. Jose-Chapo incision was made over the McBurney point. The oblique muscles split in a gridiron fashion, exposing the peritoneum, which was elevated and entered so as to avoid injury to the underlying structures. Immediately on opening the peritoneal cavity, copious amount of pus exuded. This was cultured aerobically and anaerobically. The pelvis was then irrigated with bacitracin and saline. The cecum was rotated into the wound. The appendix was grossly infected, covered with fibrin. I could not identify perforation. There was a good deal of fibrin coating the appendix. The mesoappendix divided between clamps, the vessels ligated with 2-0 Vicryl. There was excellent hemostasis. The base of the appendix closed over a TA 30 staple line, and the appendix was then excised above the staple line. The staple line was inspected, was secure. The cecum rotated back into the pelvis. Further irrigation with bacitracin and saline revealed no further purulence, and no bleeding. A 10-mm Moses drain was placed in the right gutter, brought out through the right angle of the incision, sutured to the skin with fine nylon. Peritoneum closed with running 2-0 Vicryl, oblique fascia closed she is #1 Maxon. Subcutaneous irrigated again with bacitracin, saline, and the skin loosely stapled. Sterile dressings applied. The procedure was well tolerated. Courtneyfelisha Elder - /suzan/daisy doc#: [id number]/job#: [id number] dd: 02/17/2018 18:04:00 dt: 02/18/2018 01:14:00 DICTATING MD/COPIES TO: Al Pickard MD COPIES MNE: VÍCTOR
[2018-02-18] MEDS: OXYCODONE/ACETAMINOPHEN 5/325 TABLET 2 TAB PO ×5 (04:02→21:23)
[2018-02-18 04:13] VITALS: BP 107/60; PULSE 69; RESP 18; TEMP 36.9; O2SAT 97
[2018-02-18] MEDS: PIPERACILLIN-TAZO 3.375 GM/50 ML FROZ.PIGGY IV ×3 (05:56→19:37)
--- NOTE | 2018-02-18 06:32 | PC.NURSE ---
pt alert and oriented x4, vss on ra. dressing c/d/i and PERI compressed draining serosang drainage. Drinking plenty of fluids orally, denies any GI upset with consumption. Pt did complain of significant pain, called MD and new order to allow 2 percocet q4 rather than 1 q4. Pt verbalizes that 2 percocets worked better, getting down to a 6/10 pain level. Awake most of night dealing with elevated pain. pt stated to not have passed any gas as of this AM.
[2018-02-18] MEDS: DEXTROSE 5%-0.45% NS 1,000 ML 100 ML IV ×2 (08:23→21:58)
[2018-02-18] MEDS: ENOXAPARIN 40 MG/0.4 ML SYRINGE SUBCUT (08:26)
[2018-02-18 08:44] VITALS: BP 126/71; PULSE 65; RESP 16; TEMP 36.6; O2SAT 94
[2018-02-18 11:36] VITALS: BP 115/77; PULSE 70; RESP 16; TEMP 36.1; O2SAT 97
--- NOTE | 2018-02-18 12:08 | CM.DANOTE ---
DCP/Assessment: Reviewed chart. Patient is a 52yr old male admitted [facility] under inpatient status with abdominal pain. Primary payor is 1)[employer] 2)[facility]. PCP is at [facility] in [place], [place]. Met with patient explained CM/SW role. Patient alert and oriented at time of visit. Patient reports that he resides with his family including spouse/Sunshine in [place]. Patient plans to d/c home when medically stable. Patient underwent surgery for appendectomy last pm with Dr. Pickard. Patient reports that he primarily I with all ADL's at baseline. Patient does not use DME and drives. No anticipated d/c needs identified at this time. P: Home when stable. CM team to follow closely for needs. LINSEY Sánchez Discharge Planning/Care Management CM Discharge Assessment Start: 02/18/18 12:06 Freq: Status: Active Protocol: Document 02/18/18 12:06 [facility] (Rec: 02/18/18 12:08 [facility] [id number]) Discharge Planning Assessment Assigned [employer] LINSEY Sánchez Contact Information Sunshine Lynn Advance Directives? No History Provided By Patient Has Patient been admitted in last 30 No days? Household Members spouse Type of transporation used prior to Drives own vehicle admit Independent with ADL's Yes Is patient alert and oriented? Yes Caregiver for Another No Barriers to Discharge No Discharge Plan Home Transportation Arrangement Family to provide transport. Referrals Initiated Other Additional Comment Continue to follow for discharge planning needs. Whiteboard Updated in Patient Room with Yes name and ext. # of [employer] Review Status In Process Please Provide Date Initial DC 02/18/18 Assessment Was Performed Next Review Type Continued Stay Review
--- NOTE | 2018-02-18 13:25 | PC.NURSE ---
Day Shift- Pt A&OX4, reinforced the need to use call light for help. Pt slightly anxious at this was his first hospital surgery. Support and encouragement provided. RLQ abd dressing CDI covering incision and PERI drain insertion site. PERI to bulb suction. IVF infusing well to left AC PIV. Pain reported as 5-8/10 throughout shift. Percocet po prn given X2 at 0825 & 1245. Dilaudid IV prn given X1 for BTP at 1140 after pt was assisted back to bed after being in chair for approx 1 hr & 15mins. Pt tolerating clear liquid diet. Mild nausea at times that has settled. Will continue to monitor.
[2018-02-18 15:57] VITALS: BP 118/66; PULSE 66; RESP 17; TEMP 36.8; O2SAT 95
[2018-02-18] MEDS: ONDANSETRON 4 MG/2 ML INJ IV (16:30)
[2018-02-18 21:40] VITALS: BP 124/58; PULSE 65; RESP 18; TEMP 36.6; O2SAT 96
--- NOTE | 2018-02-18 21:40 | PM.PN.1 ---
Subjective Date Patient Seen: 02/18/18 Time Patient Seen: 21:40 Interval history: Pain controlled. No dysuria. Past a small amount of flatus earlier today. No subjective fever or chills. Mild nausea but no vomiting. Tolerating clear liquid diet. Exam Vital Signs (past 8 hours): - 02/18/18 15:57 Temperature 98.3 F Pulse Rate 66 Respiratory Rate 17 Blood Pressure 118/66 Pulse Oximetry 95 Oxygen Delivery Method Room Air Oxygen Flow Rate 0 Narrative Exam Narrative: Obese male lying comfortably in bed in no acute distress. Family is at the bedside. Patient is alert oriented x3. No fevers since surgery yesterday Normal heart rate and rhythm Abdomen is soft and mildly distended. Appropriately tender without guarding or rebound. Dressing is clean, dry, and intact. Drain output is serosanguineous only. Extremities show no clubbing or cyanosis Objective Labs Result Diagrams: 02/17/18 14:50 02/17/18 14:50 Labs: No new laboratory or radiographic studies for review Assessment & Plan Plan: Assessment/Plan Narrative: 52-year-old male postoperative day 1 from open appendectomy for acute appendicitis with small micro perforation but no abscess. He remains on antibiotics. Continue clear liquids by mouth until ileus begins to resolve. Ambulate aggressively. Encourage pulmonary toilet. All the above discussed with the patient and his family in detail. Questions were answered to his satisfaction, and the patient voiced understanding. Orders were written.
--- NOTE | 2018-02-18 23:32 | PC.NURSE ---
Bety shift pt AO, at bedside and staying the night, SBA-BR, and reporting / pain. 1 tab Percocet administered and reassessed at 07/18. Ambulating in room and hallways. Left AC PIV infusing d5 1/2NS at 100/hr. Dr. Whelan rounded and gave a verbal order for pt's home medication of 5mg Lisinopril qdaily (AM). Bulky dressing to RLQ. Hypo-bowel tones, passing gas. Denying nausea for evening shift, but pt thinks that AM nausea was caused by small clear diet meal with pain medications.
[2018-02-19] MEDS: PIPERACILLIN-TAZO 3.375 GM/50 ML FROZ.PIGGY IV ×5 (00:05→23:41)
[2018-02-19] MEDS: OXYCODONE/ACETAMINOPHEN 5/325 TABLET 2 TAB PO ×6 (01:30→21:26)
[2018-02-19 04:50] VITALS: BP 151/79; PULSE 69; RESP 18; TEMP 36.9; O2SAT 98
--- NOTE | 2018-02-19 05:49 | PC.NURSE ---
02/19 0550 alert and oriented, vss on RA and pain stated to be adequately controlled by 1 percocet every 4 hrs. Tolerating clear liquid diet and states to be passing gas. PERI to suction, draining 10ml serosang drainage this shift (less sanguineous more serous).
[2018-02-19 08:45] VITALS: BP 178/87; PULSE 72; RESP 16; TEMP 36.8; O2SAT 95
[2018-02-19] MEDS: LISINOPRIL 5 MG TABLET PO (08:47)
[2018-02-19] MEDS: ENOXAPARIN 40 MG/0.4 ML SYRINGE SUBCUT (08:47)
--- NOTE | 2018-02-19 10:00 | PC.NURSE ---
Addendum entered by Enriqueta Ravi R.N. 02/19/18 13:30: PAIN/INTEG - printed PERI care for pt, show how empty, clean and compress, record output when at home, emptied 10ml now thin serosang, port cleaned and bulb compressed, given percocet 5/325ng x 1 tab for pain 5 on scale 0/10. Original Note: AM NOTE - pt observed ambul in hallway w/spouse standby prior to breakfast, gait steady, kendra clear liq, no nausea, bt are present, hypo lquad, hr 68, pain 7 on scale 0/10, discussed pain mgt and pt prefers to take x1 percocet as x2 tabs did incr nausea, given x1 tab this am.
[2018-02-19 12:23] VITALS: BP 145/89; PULSE 68; RESP 16; TEMP 36.5; O2SAT 96
--- NOTE | 2018-02-19 12:25 | PM.PN.1 ---
Subjective Date Patient Seen: 02/19/18 Time Patient Seen: 12:25 Interval history: patient denies significant pain. Pain currently well controlled. No nausea vomiting. Tolerating clear liquids well without any issue. Reports normal urinary output with no dysuria. Passing flatus but no bowel movement as yet. Ambulating without difficulty. Learning drain care. Exam Vital Signs (past 8 hours): - 02/19/18 04:50 02/19/18 08:45 Temperature 98.5 F 98.2 F Pulse Rate 69 72 Respiratory Rate 18 16 Blood Pressure 151/79 H 178/87 H Pulse Oximetry 98 95 Oxygen Delivery Method Room Air Oxygen Flow Rate 0 Narrative Exam Narrative: Well-nourished well-developed male sitting comfortably in bedside chair in no acute distress. Alert oriented x3 no fevers. No tachycardia. Blood pressure mildly elevated. He has restarted lisinopril. chest clear to auscultation bilaterally with regular rate and rhythm abdomen soft, nondistended, no masses. Wound is clean, dry, and intact without erythema or ecchymosis. Drain site is clean. Drain output is relatively minimal and serosanguineous only. He is appropriately tender without involuntary guarding or rebound. extremities show no clubbing, cyanosis, or edema Objective Labs Result Diagrams: 02/17/18 14:50 02/17/18 14:50 Labs: all cultures remain no growth to date Assessment & Plan Plan: Assessment/Plan Narrative: 52-year-old male postoperative day 2 from open appendectomy for perforated appendicitis who is otherwise doing well. Advance to full liquid diet today. Discontinue IV fluids. Continue antibiotics with intravenous Zosyn. He will require full antibiotic course given the purulent material found in the pelvis at the time of surgery. He may shower and ambulate ad emelyn. Continue drainage occasion. We discussed anticipated wound healing and return to work. He may not lift more than 20 lb for 4 weeks. Continue home medications. All questions answered to his satisfaction, and he voiced understanding. Orders were written. Likely anticipate home tomorrow on oral antibiotics.
[2018-02-19] MEDS: ACETAMINOPHEN 325 MG TABLET 650 MG PO (14:50)
[2018-02-19 16:40] VITALS: BP 130/77; PULSE 61; RESP 16; TEMP 36.9; O2SAT 97
[2018-02-19 19:05] VITALS: BP 129/81; PULSE 71; RESP 15; TEMP 36.7; O2SAT 96
[2018-02-20 01:00] VITALS: BP 113/69; PULSE 56; RESP 18; TEMP 37; O2SAT 96
[2018-02-20] MEDS: OXYCODONE/ACETAMINOPHEN 5/325 TABLET 2 TAB PO ×3 (02:55→12:54)
[2018-02-20 03:20] VITALS: BP 148/71; PULSE 61; RESP 18; TEMP 36.7; O2SAT 99
[2018-02-20] MEDS: PIPERACILLIN-TAZO 3.375 GM/50 ML FROZ.PIGGY IV ×2 (06:10→12:50)
--- NOTE | 2018-02-20 06:40 | PC.NURSE ---
02/20 0640: pt slept most of night, vss on ra, pain stated to be adequate with prn percocet. loose/liq bowel movement this at 0700.
[2018-02-20 08:00] VITALS: BP 149/86; PULSE 68; RESP 18; TEMP 36.8; O2SAT 97
[2018-02-20] MEDS: LISINOPRIL 5 MG TABLET PO (09:00)
[2018-02-20] MEDS: SODIUM CHLORIDE 0.9% FLUSH 10 ML IV (09:01)
[2018-02-20] MEDS: ENOXAPARIN 40 MG/0.4 ML SYRINGE SUBCUT (09:02)
--- NOTE | 2018-02-20 10:30 | PC.NURSE ---
Addendum entered by Enriqueta Ravi R.N. 02/20/18 13:34: DC - Reviewed dc instr w/pt and spouse, scripts provided, given percocet po x 1 tab after lunch, dsg supplies provided for care incision and delmy drain compressed pinned to shirt, belongings gathered, hep lock dc'd, has clothing, bag, shoes, glasses, cell phone, tsf to wc and escorted to family car by bag patcher Original Note: Addendum entered by Enriqueta Ravi R.N. 02/20/18 12:59: dc - pt kendra gen diet lunch, pain 4-5 on scale 0/10 and given percocet po x 1 tab. Original Note: AM NOTE alert, up indep this am and ambul hallways, delmy compressed w/scant serosang in bulb, dsg rlq cdi, no nausea, adv to gen diet this am and kendra w/o difficulty, Given percocet x1 tab per pt req for pain 5 on scale 0/10.
--- NOTE | 2018-02-20 12:42 | P.DS_ITS ---
History of Present Illness Date Patient Seen: 02/20/18 Time Patient Seen: 12:38 Chief complaint: middle abdomen pain Narrative: 52-year-old male who presented emergency department progressive right -sided abdominal pain, nausea, and low-grade fever. Examination and evaluation were consistent with appendicitis. He was admitted for urgent appendectomy. Discharge Providers Date of admission: 02/17/18 17:29 Primary care physician: Mady Kumar MD Discharge provider: Alexis Whelan MD Discharge Date: 02/20/18 Summary Discharge Diagnosis: Acute suppurative appendicitis with micro perforation Peritonitis secondary to appendicitis Open appendectomy with drain insertion this admission Morbid obesity Hypertension Hospital Course: Patient was taken to the operating room for the above procedure which he tolerated well. Postoperatively he was admitted to the regular surgical floor where he remained afebrile hemodynamically stable throughout. He had return of normal spontaneous bladder function. As anticipated he had some delay with regard to returning bowel function but by the time of discharge is passing flatus and stool without any problems. He was slowly graduated from clear liquid diet to regular diet which he is also tolerating without nausea or vomiting at the time of discharge. Drain output has been serosanguineous only. Patient has been taught drain care and is comfortable with such. He is ambulating unassisted without difficulty. Pain is minimal but otherwise well controlled. He has remained stable on intravenous Zosyn which has been converted to oral Levaquin and Flagyl to time of discharge to complete a full antibiotic course given the evidence of peritonitis and perforation of the appendix. Wound is otherwise healing nicely without evidence of infection or other complications. Because of his overall stable condition he is discharged home. He will follow up next week in the surgery clinic for drain removal. He understands to call or return sooner, however, for fever, chills, nausea, vomiting, inability to tolerate a diet, unusual wound drainage, progressive pain, or any other concerns. Status at Discharge Cognitive/behavioral status at discharge: Alert, oriented x3 Functional status at discharge: independent ambulation Overall status at discharge: patient is progressing back to baseline Time Spent with Patient Less than 30 minutes Exam Vital Signs (past 8 hours): - 02/20/18 08:00 Temperature 98.2 F Pulse Rate 68 Respiratory Rate 18 Blood Pressure 149/86 H Pulse Oximetry 97 Oxygen Delivery Method Room Air Oxygen Flow Rate 0 Narrative Exam Narrative: Well-nourished well-developed male in no acute distress. Alert oriented x3. He is ambulating unassisted about the room. Sclera nonicteric Regular rate and rhythm Abdomen soft and nondistended. He is minimally tender to palpation at the right lower quadrant. No guarding or rebound. Wound is clean, dry, and intact without erythema or ecchymosis. No hematoma or seroma. No wound drainage. Moses-Chavira drain site is clean and intact as well. Fluid is serosanguineous only in the drain. No pus. Extremities show no clubbing, cyanosis, or edema Objective Labs Result Diagrams: 02/17/18 14:50 02/17/18 14:50 Discharge Plan Discharge Plan Patient Disposition: Home Discharge Med Rec/Prescriptions Prescriptions: New sennosides [Senokot] 8.6 mg tablet 8.6 mg PO BEDTIME Qty: 10 RF: 1 docusate sodium [Colace] 100 mg capsule 100 mg PO BID Qty: 14 RF: 1 metronidazole [Flagyl] 500 mg tablet 500 mg PO TID Qty: 21 RF: 0 levofloxacin [Levaquin] 750 mg tablet 750 mg PO DAILY Qty: 7 RF: 0 oxycodone 5 mg tablet 5 mg PO Q3H PRN (Reason: pain) Qty: 30 RF: 0 Continue ibuprofen 200 mg Tablet 1 dose PO PRN PRN (Reason: Back Pain) RF: 0 lisinopril 5 mg tablet 5 mg PO DAILY Qty: 30 RF: 0 Follow up/Referrals: Alexis Whelan MD [Physician] - 02/26/18 12:00 am (Please call office for exact appointment time if not already done) Provider Discharge Instructions Diet: Diet as Tolerated Activity: No lifting more than 20 lb for 4 weeks No driving while taking opioid pain medication May walk as much as desired May climb stairs May ride in vehicle Cold/Heat Therapy: May apply ice pack to incision as needed for comfort Other treatments: Empty and record drain output once daily and as needed Skin/Wound/Dressing Care Report to your healthcare provider any signs of infection, such as:: chills, fever, increased pain, unusual drainage and unusual redness Dressing: Replace gauze dressing around drain site once daily and as needed after shower Other wound treatment: May shower Do not soak incision in bathtub or pool until further notice Visit Report/Discharge Packet Instructions: How to Use and Care for Your Moses-Chavira Drain Visit Report Forms: Stroke Signs & Symptoms Discharge Data Primary Care Provider: Mady Kumar Attending Provider: Al Pickard Admit Date/Time: 02/17/18 17:29
== END 2018-02-20 13:50 | disposition home or self-care (01) | DRG 339 ==
LOC: ED 16:42 → AC 02-18 11:19
PROVIDERS: Admitting Provider Surgery; Emergency Provider Nurse Practitioner Family; Family Provider Family Medicine; PCP Family Medicine; Visit Provider Surgery
PROC: 0DTJ0ZZ Resection of Appendix, Open Approach (ICD-10-PCS; CPT 44950; principal; 2018-02-17 17:00)
DX: K35.32 Acute appendicitis with perforation, localized peritonitis, and gangrene, without abscess (principal); Z68.41 Body mass index [BMI] 40.0-44.9, adult; I10 Essential (primary) hypertension; E66.01 Morbid (severe) obesity due to excess calories
CPT/HCPCS: 36415; 36591; 44950; 74177; 80053; 81003; 83690; 85025; 86850; 86900; 86901; 87070; 87075; 87205; 96361; 96374; 96375; 99221; 99283; 99284; J0330; J0696; J1170; J1650; J1885; J2405; J2543; J2704; J3010; Q9967

== ENCOUNTER 2019-07-16 07:28 | Emergency (ER) | payer OTHER, SELFPAY ==
[2018-02-26 12:17] VITALS: BMI 40.7
[2019-07-16 07:42] VITALS: BP 175/94; PULSE 81; RESP 16; TEMP 37.1; O2SAT 100; BMI 44.8
--- NOTE | 2019-07-16 08:14 | ED_ITS ---
HPI - GI Bleed General Chief complaint: GI Bleed Stated complaint: pooping blood Time Seen by Provider: 07/16/19 08:09 Source: patient, family () and old records reviewed Mode of arrival: Ambulatory Limitations: no limitations History of Present Illness HPI Narrative: This is a 53-year-old male comes emergency department with bright red blood in his stool. Patient states that he got up this morning had a bowel movement it was not painful. He states that there was blood in the toilet. He states he could not see through the water he did not appreciate any large clots. He has not had this happen to him before. He denies any lightheadedness or syncope. He denies any abdominal pain. No rectal pain. He patient has been slightly nauseated today but no vomiting. He states the nausea might be secondary to anxiety because this is a new event and unexpected. He has not had any diarrhea or constipation. He denies any urinary issues. He does not take any aspirin or blood thinners. He does take lisinopril, hydroxyzine, ibuprofen regularly. He did have his appendix out about a year ago. He denies any other surgeries. He states he is allergic to codeine. He has not had a colonoscopy. No family history of colon cancer. Related Data Home Medications Medication Instructions Recorded Confirmed ibuprofen 1 dose PO PRN PRN 02/17/18 07/16/19 Previous Rx's Medication Instructions Recorded lisinopril 5 mg PO DAILY #30 tab 08/25/17 Allergies Allergy/AdvReac Type Severity Reaction Status Date / Time codeine [CODEINE] Allergy Unknown Hives Verified 02/26/18 11:53 Review of Systems Review of Systems ROS Unobtainable: All systems reviewed & are unremarkable except as noted in HPI and below Patient History Medical History (Updated 07/16/19 @ 10:03 by Stefania Aquino DO) Hypertension (Acute) Surgical History (Updated 07/16/19 @ 08:39 by Stefania Aquino DO) Hx of appendectomy (Acute) Social History household members: spouse Smoking Status: Former smoker Smoking Status: Former smoker alcohol intake frequency: holidays/special occasions only Substance Use Type: marijuana Exam Narrative Exam Narrative: GENERAL: Alert and oriented x three, obese male in mild distress. HEENT: Head normocephalic, atraumatic, EOMI, pupils reactive, face symmetric, m oist mucous membranes NECK: Supple, full range of motion CARDIOVASCULAR: Regular rate and rhythm without murmurs, rubs or gallops. RESPIRATORY: Breath sounds equal bilaterally, no wheezes rales or rhonchi. ABDOMEN: Soft, nontender. Normoactive bowel sounds all 4 quadrants. No guarding or rebound, rigidity, no mass, on rectal exam no external hemorrhoids. Patient does have small amount of stool with streaks of red. Stool occult is positive. Patient has mild to moderate discomfort with rectal exam. : No CVA tenderness EXTREMITIES: Normal range of motion, no clubbing or edema. Neurovascularly intact NEUROLOGICAL: Cranial nerves II through XII grossly intact. Moving all extremities SKIN: Warm, dry, no petechiae, no rashes or lesions. Initial Vital Signs Initial Vital Signs: Vital Signs Temperature 98.7 F 07/16/19 07:42 Pulse Rate 81 07/16/19 07:42 Respiratory Rate 16 07/16/19 07:42 Blood Pressure 175/94 H 07/16/19 07:42 Pulse Oximetry 100 07/16/19 07:42 Course Orders Ordered: ED Orders 07/16/19 08:00 Complete Blood Count AUTO DIFF Stat Comprehensive Metabolic Panel Stat Partial Thromboplastin Time Stat Prothrombin Time INR Stat Type and Screen Stat 07/16/19 09:21 CT abdomen pelvis w con Stat Discontinued Medications Sodium Chloride (Normal Saline 0.9%) 1,000 mls @ 1,000 mls/hr IV BOLUS ONE Stop: 07/16/19 09:36 Last Admin: 07/16/19 09:07 Dose: 1,000 mls/hr Documented by: DANE Vital Signs Vital signs: Vital Signs - 8 hr 07/16/19 07:42 07/16/19 08:30 07/16/19 09:30 Temperature 98.7 F Pulse Rate 81 66 67 Respiratory Rate 16 14 20 Blood Pressure 175/94 H Blood Pressure [Right Arm] 162/65 H 138/83 Pulse Oximetry 100 98 97 07/16/19 10:14 Temperature Pulse Rate 68 Respiratory Rate 20 Blood Pressure Blood Pressure [Right Arm] 139/79 Pulse Oximetry 99 MDM - GI Bleed Lab Data Attestation: I reviewed the patient's lab results. Result diagrams: 07/16/19 08:00 07/16/19 08:00 Labs: Lab Results 07/16/19 07/16/19 07/16/19 Range/Units 08:00 08:00 08:00 WBC 6.8 (4.5-11.0) X10^3/uL RBC 5.02 (4.5-5.9) X10^6/uL Hgb 13.9 (13.5-17.5) g/dL Hct 40.3 L (41-53) % MCV 80.4 (80-100) fL MCH 27.7 (26-34) PG MCHC 34.4 (30-36) % RDW 14.3 (11.6-14.8) % Plt Count 335 (150-400) X10^3/uL Neut % (Auto) 45.5 L (50-75) % Lymph % (Auto) 41.9 H (25-40) % [place] % (Auto) 8.0 (3-14) % Eos % (Auto) 3.5 (2-4) % Baso % (Auto) 1.1 (0-2) % Neut # (Auto) 3100 (9811-1227) /uL Lymph # (Auto) 2800 (7825-1368) /uL [place] # (Auto) 500 (0-900) /uL Eos # (Auto) 200 (0-450) /uL Baso # (Auto) 100 (0-100) /uL PT 10.1 (10.1-12.7) SECONDS INR 0.9 (0.9-1.3) APTT 25 L (26.4-36.2) SECONDS Sodium 135 L (137-145) mmol/L Potassium 4.3 (3.4-5.1) mmol/L Chloride 103 (98-107) mmol/L Carbon Dioxide 26 (22-32) mmol/L BUN 18 (9-20) mg/dL Creatinine 0.99 (0.66-1.25) mg/dL Estimated GFR > 60.0 (>60) mL/min BUN/Creatinine Ratio 18.2 (6-22) Glucose 116 H (70-100) mg/dL Calcium 8.5 (8.4-10.2) mg/dL Total Bilirubin 0.3 (0.2-1.3) mg/dL AST 31 (17-59) IU/L ALT 38 (<50) IU/L Alkaline Phosphatase 89 (38-126) U/L Total Protein 7.3 (6.3-8.2) g/dL Albumin 4.1 (3.5-5.0) g/dL Globulin 3.2 (1.7-4.1) g/dL Albumin/Globulin Ratio 1.3 (1.0-2.8) Blood Type Antibody Screen 07/16/19 Range/Units 08:00 WBC (4.5-11.0) X10^3/uL RBC (4.5-5.9) X10^6/uL Hgb (13.5-17.5) g/dL Hct (41-53) % MCV (80-100) fL MCH (26-34) PG MCHC (30-36) % RDW (11.6-14.8) % Plt Count (150-400) X10^3/uL Neut % (Auto) (50-75) % Lymph % (Auto) (25-40) % [place] % (Auto) (3-14) % Eos % (Auto) (2-4) % Baso % (Auto) (0-2) % Neut # (Auto) (1119-4125) /uL Lymph # (Auto) (7142-5209) /uL [place] # (Auto) (0-900) /uL Eos # (Auto) (0-450) /uL Baso # (Auto) (0-100) /uL PT (10.1-12.7) SECONDS INR (0.9-1.3) APTT (26.4-36.2) SECONDS Sodium (137-145) mmol/L Potassium (3.4-5.1) mmol/L Chloride (98-107) mmol/L Carbon Dioxide (22-32) mmol/L BUN (9-20) mg/dL Creatinine (0.66-1.25) mg/dL Estimated GFR (>60) mL/min BUN/Creatinine Ratio (6-22) Glucose (70-100) mg/dL Calcium (8.4-10.2) mg/dL Total Bilirubin (0.2-1.3) mg/dL AST (17-59) IU/L ALT (<50) IU/L Alkaline Phosphatase (38-126) U/L Total Protein (6.3-8.2) g/dL Albumin (3.5-5.0) g/dL Globulin (1.7-4.1) g/dL Albumin/Globulin Ratio (1.0-2.8) Blood Type O Positive Antibody Screen Negative Imaging Data CT scan - abdomen/pelvis: Radiologist's Impression: [address] [address] [address] Scan Report Signed Patient: Elder Bailey JMR#: [id number] : [id number]:[id number] Age/Sex: 53 / MDate of Service: 07/16/19 Loc: ED Accession Number: [id number] Procedure: CT abdomen pelvis w con Ordering Provider: Stefania Aquino D.O. PROCEDURE: CT ABDOMEN PELVIS W CON INDICATIONS: blood coming out of per rectum, no prior episodes. TECHNIQUE: After the administration of intravenous contrast, 5 mm thick sections acquired from the diaphragm to the symphysis. 5 mm coronal and sagittal reformats were acquired. For radiation dose reduction, the following was used: automated exposure control, adjustment of mA and/or kV according to patient size. COMPARISON: [facility], CT, CT ABDOMEN PELVIS W CON, 02/17/2018, 15:57. FINDINGS: Image quality: Excellent. ABDOMEN: Lung bases: Lung bases are clear. Heart size is normal. Solid organs: Liver is normal in size and enhancement. Gallbladder is normal. Biliary system is non dilated. Pancreas enhances normally. Spleen is normal in size and enhancement. No adrenal nodules. Kidneys demonstrate normal size and enhancement, without hydronephrosis. Peritoneum and bowel: There are colonic diverticula. Bowel loops demonstrate n ormal wall thickness and caliber. No free fluid or air. Nodes and vessels: No retroperitoneal or mesenteric adenopathy by size criteria. Aorta and inferior vena cava are normal in size. Miscellaneous: No ventral hernias. PELVIS: Genitourinary: Bladder wall thickness is normal. Miscellaneous: No inguinal hernias or adenopathy. Bones: No suspicious bony lesions. No vertebral body compression fractures. Degenerative changes noted in lumbar spine. IMPRESSION: 1. Diverticulosis without acute diverticulitis. Dictated by: Dom Naranjo M.D. on 07/16/2019 at 9:40 Approved by: Dom Naranjo M.D. on 07/16/2019 at 9:44 MDM Narrative Medical decision making narrative: Patient comes in with bright red rectal bleeding. His stool occult is positive there is scant red blood on ZAHRA. Patient has stable hemoglobin and hematocrit. No elevation in white count. Coags show a PTT of 25 otherwise normal INR. Sodium 135 with normal electrolytes, creatinine is normal with no elevation in BUN. Glucose is 116, any abnormalities. Patient does not any abdominal pain. No external hemorrhoids are noted. Patient may have some internal hemorrhoids but were not appreciated on exam. He has had a colonoscopy in the past and nothing was found at that time, CT imaging was ordered as he felt a little nauseated recently with painless rectal bleeding. CT shows diverticulosis but no diverticulitis. No mass or other changes the cause bright red bleeding. Discussed with patient he has not had a colonscopy in the past. Patient does have a primary care through the [facility] who can help him set this up and was given referral to General surgery. Patient has not had any additional bleeding in department, vitals are stable, no tachycardia. Discharge Plan Departure Patient Disposition: Home Clinical Impression: Bright red rectal bleeding, Diverticulosis Discharge Date/Time: 07/16/19 10:24 Instructions: DI for Rectal Bleeding Activity Restrictions/Additional Instructions: Follow up with general surgery for recheck and to schedule for a colonscopy. Your primary care physician can also help you schedule this. Continue home medications as prescribed. Return to ER for fevers greater than 100.4F, abdominal or increasing back or flank pain, persistent vomiting, worsening bloody stools, large clots, lightheadedness, passing out, new chest pain or shortness of breath. Prescriptions: No Action ibuprofen 200 mg Tablet 1 dose PO PRN PRN (Reason: Back Pain) RF: 0 lisinopril 5 mg tablet 5 mg PO DAILY Qty: 30 RF: 0 Referrals: Mady Kumar MD [Primary Care Provider] - Herminio Mane MD [Physician] -
[2019-07-16 08:15] LABS: Add Manual Diff / Slide Review NO; Basophils Absolute Auto 100 /uL (0-100); Basophils Percent Auto 1.1 % (0-2); Eosinophils Absolute Auto 200 /uL (0-450); Eosinophils Percent Auto 3.5 % (2-4); Hematocrit 40.3 % (41-53); Hemoglobin 13.9 g/dL (13.5-17.5); Lymphocytes Absolute Auto 2800 /uL (1100-4500); Lymphocytes Percent Auto 41.9 % (25-40); Mean Corpuscular HGB Conc 34.4 % (30-36); Mean Corpuscular Hemoglobin 27.7 PG (26-34); Mean Corpuscular Volume 80.4 fL (80-100); Monocytes Absolute Auto 500 /uL (0-900); Neutrophils Absolute Auto 3100 /uL (1500-7000); Neutrophils Percent Auto 45.5 % (50-75); Platelet Count 335 X10^3/uL (150-400); Red Blood Cell Count 5.02 X10^6/uL (4.5-5.9); Red Cell Distribution Width 14.3 % (11.6-14.8); White Blood Cell Count 6.8 X10^3/uL (4.5-11.0)
[2019-07-16 08:18] LABS: INR 0.9 (0.9-1.3); Prothrombin Time 10.1 SECONDS (10.1-12.7)
[2019-07-16 08:21] LABS: PTT Partial Thromboplastin Tim 25 SECONDS (26.4-36.2)
[2019-07-16 08:23] LABS: Alanine Aminotransferase 38 IU/L (<50); Albumin 4.1 g/dL (3.5-5.0); Albumin Globulin Ratio 1.3 (1.0-2.8); Alkaline Phosphatase 89 U/L (38-126); Aspartate Aminotransferase 31 IU/L (17-59); BUN Creatinine Ratio 18.2 (6-22); Bilirubin Total 0.3 mg/dL (0.2-1.3); Blood Urea Nitrogen 18 mg/dL (9-20); Calcium 8.5 mg/dL (8.4-10.2); Carbon Dioxide 26 mmol/L (22-32); Chloride 103 mmol/L (98-107); Estimated Glomerular Filt Rate > 60.0 mL/min (>60); Globulin 3.2 g/dL (1.7-4.1); Glucose 116 mg/dL (70-100); HEMOLYSIS 23 (0-50); Potassium 4.3 mmol/L (3.4-5.1); Sodium 135 mmol/L (137-145); Total Protein 7.3 g/dL (6.3-8.2)
[2019-07-16 08:30] VITALS: BP 162/65; PULSE 66; RESP 14; O2SAT 98
[2019-07-16] MEDS: SODIUM CHLORIDE 0.9% 1,000 ML 1000 ML IV (09:07)
--- NOTE | 2019-07-16 09:21 | DI.CT.S_ITS ---
PROCEDURE: CT ABDOMEN PELVIS W CON INDICATIONS: blood coming out of per rectum, no prior episodes. TECHNIQUE: After the administration of intravenous contrast, 5 mm thick sections acquired from the diaphragm to the symphysis. 5 mm coronal and sagittal reformats were acquired. For radiation dose reduction, the following was used: automated exposure control, adjustment of mA and/or kV according to patient size. COMPARISON: [facility], CT, CT ABDOMEN PELVIS W CON, 02/17/2018, 15:57. FINDINGS: Image quality: Excellent. ABDOMEN: Lung bases: Lung bases are clear. Heart size is normal. Solid organs: Liver is normal in size and enhancement. Gallbladder is normal. Biliary system is non dilated. Pancreas enhances normally. Spleen is normal in size and enhancement. No adrenal nodules. Kidneys demonstrate normal size and enhancement, without hydronephrosis. Peritoneum and bowel: There are colonic diverticula. Bowel loops demonstrate normal wall thickness and caliber. No free fluid or air. Nodes and vessels: No retroperitoneal or mesenteric adenopathy by size criteria. Aorta and inferior vena cava are normal in size. Miscellaneous: No ventral hernias. PELVIS: Genitourinary: Bladder wall thickness is normal. Miscellaneous: No inguinal hernias or adenopathy. Bones: No suspicious bony lesions. No vertebral body compression fractures. Degenerative changes noted in lumbar spine. IMPRESSION: 1. Diverticulosis without acute diverticulitis. Dictated by: Dom Naranjo M.D. on 07/16/2019 at 9:40 Approved by: Dom Naranjo M.D. on 07/16/2019 at 9:44
[2019-07-16 09:30] VITALS: BP 138/83; PULSE 67; RESP 20; O2SAT 97
[2019-07-16 10:14] VITALS: BP 139/79; PULSE 68; RESP 20; O2SAT 99
== END 2019-07-16 10:24 | disposition home or self-care (01) ==
PROVIDERS: Emergency Provider Emergency Medicine; Family Provider Family Medicine; PCP Family Medicine
DX: K62.5 Hemorrhage of anus and rectum (principal); K57.90 Diverticulosis of intestine, part unspecified, without perforation or abscess without bleeding
CPT/HCPCS: 36415; 74177; 80053; 85025; 85610; 85730; 86850; 86900; 86901; 96360; 96361; 99284; Q9967

== ENCOUNTER 2019-08-27 07:23 | Day surgery (SDC) | payer OTHER, SELFPAY ==
[2018-02-26 12:17] VITALS: BMI 40.7
[2019-08-27 07:40] VITALS: BP 135/83; PULSE 83; RESP 18; TEMP 36.6; O2SAT 98
[2019-08-27] MEDS: LACTATED RINGERS 1,000 ML 200 ML IV (07:56)
--- NOTE | 2019-08-27 08:27 | PM.PREOP ---
Pre-operative Note COVID-19 COVID-19 status: Negative Result date/Date tested (Pos, Neg/Pending): 08/24/19 Interval Note History & Physical reviewed/Exam performed by Physician: Yes Changes to H&P: No ASA Class (for procedural sedation): II
[2019-08-27] MEDS: fentaNYL 250 MCG/5 ML INJ 500 MCG IV (09:03)
[2019-08-27] MEDS: MIDAZOLAM 5 MG/5 ML VIAL 10 MG IV (09:04)
[2019-08-27] MEDS: LIDOCAINE JELLY 2% 5 ML 2 APPLIC TOP (09:05)
--- NOTE | 2019-08-27 09:13 | PM.OP.ENDO ---
Operative Date/Time/Diagnoses Date of procedure: 08/27/19 Time of procedure: 09:13 Pre-op diagnosis: Rectal bleeding. Screening examination. Post-op diagnosis: same (Internal hemorrhoids without ulceration. Sigmoid diverticulosis) Procedure & Clinicians Study performed: Colonoscopy. Anoscopy with banding of 2 columns of internal hemorrhoids Same procedure as scheduled: Yes Indications: Rectal bleeding. Age 52. No prior colonoscopy. Surgeon: Herminio Mane Procedure Notes SCOAP/Timeout: Performed Procedure in detail: The patient was placed in the left lateral decubitus position and underwent IV sedation directed by the surgeon consisting of fentanyl and Versed. Digital exam was remarkable for a an increased sphincter tone. I could not feel his prostate well due to his anatomy in the length of my finger.. The scope was inserted and advanced through the rectum into the sigmoid, descending, transverse, and ascending colon. I noted diverticulosis of the sigmoid colon on the way in.. The cecum was reached identified by the ileocecal valve and the appendiceal opening. The scope was gradually brought out. No Polyps were found. The scope ultimately was retroflexed in the rectum. The appearance was remarkable for internal hemorrhoids without ulceration. The scope was removed and the patient tolerated the procedure well. Prep was good. The patient was given additional sedation and an Anoscope was inserted and circumferential exam performed. I banded 2 columns of hemorrhoids 1 in the left posterior and 1 the right lateral position. Scope withdrawal time: 7 minutes Sedation minutes: 36 Findings: diverticulosis and internal hemorrhoids Specimen(s): none sent Complications: none Post-procedure Recommendations: Colonscopy in 10 years Follow up: weeks (Three) Disposition: PACU
[2019-08-27 09:18] VITALS: BP 121/83; PULSE 79; RESP 16; TEMP 37; O2SAT 95
[2019-08-27 09:23] VITALS: BP 101/69; PULSE 93; RESP 18; O2SAT 96
[2019-08-27 09:28] VITALS: BP 110/75; PULSE 85; RESP 12; O2SAT 97
[2019-08-27 09:32] VITALS: BP 126/83; PULSE 84; RESP 18; TEMP 36.3; O2SAT 95
== END 2019-08-27 10:05 | disposition home or self-care (01) ==
PROVIDERS: Family Provider Family Medicine; PCP Family Medicine; Referring Provider Specialist; Visit Provider Specialist
PROC: 0DJD8ZZ Inspection of Lower Intestinal Tract, Via Natural or Artificial Opening Endoscopic (ICD-10-PCS; CPT 45378; principal; 2019-08-27 08:45)
DX: K64.8 Other hemorrhoids (principal); K57.30 Diverticulosis of large intestine without perforation or abscess without bleeding; I10 Essential (primary) hypertension; F41.9 Anxiety disorder, unspecified
CPT/HCPCS: 45398; 99152; 99153; J2250; J3010

== ENCOUNTER 2019-09-03 22:25 | Emergency (ER) | payer OTHER, SELFPAY ==
[2018-02-26 12:17] VITALS: BMI 40.7
[2019-09-03 22:38] VITALS: BP 132/74; PULSE 75; RESP 12; TEMP 36.7; O2SAT 99
--- NOTE | 2019-09-03 22:48 | DI.CT.S_ITS ---
PROCEDURE: CT ABDOMEN PELVIS W CON INDICATIONS: Recent colonoscopy now with right-sided abdominal pain TECHNIQUE: After the administration of intravenous contrast, 5 mm thick sections acquired from the diaphragm to the symphysis. 5 mm coronal and sagittal reformats were acquired. For radiation dose reduction, the following was used: automated exposure control, adjustment of mA and/or kV according to patient size. COMPARISON: [facility], CT, CT ABDOMEN PELVIS W CON, 02/17/2018, 15:57. [facility], CT, CT ABDOMEN PELVIS W CON, 07/16/2019, 9:13. FINDINGS: Image quality: Excellent. ABDOMEN: Lung bases: Lung bases are clear. Heart size is normal. Solid organs: Liver is enlarged for steatosis. Gallbladder is unremarkable. Biliary system is non dilated. Pancreas enhances normally. Spleen is normal in size and enhancement. No adrenal nodules. Kidneys demonstrate normal size and enhancement, without hydronephrosis. Peritoneum and bowel: Bowel loops demonstrate normal wall thickness and caliber. No free fluid or air. Colonic diverticula are present without visualized inflammatory change. Nodes and vessels: No retroperitoneal or mesenteric adenopathy by size criteria. Aorta and inferior vena cava are normal in size. Miscellaneous: No ventral hernias. PELVIS: Genitourinary: Bladder wall thickness is normal. Miscellaneous: No inguinal hernias or adenopathy. Bones: No suspicious bony lesions. No vertebral body compression fractures. IMPRESSION: 1. Hepatomegaly with steatosis. 2. Diverticulosis. The above findings are concordant with preliminary report. Dictated by: Sarah Yanez M.D. on 09/04/2019 at 9:52 Approved by: Sarah Yanez M.D. on 09/04/2019 at 9:55
--- NOTE | 2019-09-03 22:48 | ED.GENADULT ---
HPI - General Adult General Chief complaint: Abdominal Pain Stated complaint: right side abdominal pain Time Seen by Provider: 09/03/19 22:30 Source: patient Mode of arrival: Ambulatory Limitations: no limitations History of Present Illness HPI narrative: 53-year-old male here for evaluation of right-sided abdominal pain. Patient states that approximately 10 days ago underwent a colonoscopy. Right-sided abdominal pain started today. He stated that he was somewhat constipated over the past 24 hours. He did take a MiraLax and small bowel. No urinary symptoms. States the pain is somewhat worse with eating. Worse with palpation. No change with bowel movement or urination. Related Data Home Medications Medication Instructions Recorded Confirmed buspirone 15 mg tablet 15 mg PO BID 08/19/19 08/27/19 hydroxyzine HCl 50 mg tablet 50 mg PO BID 08/19/19 08/27/19 lisinopril 5 mg tablet 10 mg PO DAILY tab 08/19/19 08/27/19 omeprazole BID 08/27/19 Allergies Allergy/AdvReac Type Severity Reaction Status Date / Time codeine [CODEINE] Allergy Unknown Hives Verified 09/03/19 22:42 Review of Systems Constitutional Constitutional: Denies fever(s) and Denies headache(s) ENT Ears, Nose, Mouth, and Throat: Denies headache(s) Cardiovascular Cardiovascular: Denies chest pain and Denies dyspnea Respiratory Respiratory: Denies dyspnea Gastrointestinal Gastrointestinal: Reports abdominal pain, Reports bloating, Reports constipation, Denies nausea and Denies vomiting Genitourinary Genitourinary: Denies dysuria Genitourinary: Denies dysuria Musculoskeletal Musculoskeletal: Denies arthralgias and Denies myalgias Integumentary/Breasts Skin/Breast: Denies rash Neurologic Neurologic: Denies behavioral changes and Denies headache(s) Psychiatric Psychiatric: Denies behavioral changes Hematologic/Lymphatic Hematologic/Lymphatic: Denies easy bleeding and Denies easy bruising Patient History Medical History Hypertension (Acute) Surgical History Hx of appendectomy (Acute) Family History Mother Hypertension Social History marital status: household members: spouse and children occupational status: previously employed Smoking Status: Former smoker alcohol intake: current substance use type: does not use Smoking Status: Former smoker alcohol intake frequency: holidays/special occasions only Substance Use Type: marijuana Exam Initial Vital Signs Initial Vital Signs: Vital Signs Temperature 98.0 F 09/03/19 22:38 Pulse Rate 75 09/03/19 22:38 Respiratory Rate 12 09/03/19 22:38 Blood Pressure 132/74 09/03/19 22:38 Pulse Oximetry 99 09/03/19 22:38 Const General: cooperative and comfortable Limitations: mental status not altered HENMT Head: normal to inspection and normocephalic Resp Effort & Inspection: normal respiratory effort Auscultation: clear to auscultation bilaterally Cardio Rate: regular rate Rhythm: regular rhythm GI Inspection: non-distended Palpation: soft, No firm, No guarding, tender (Right-sided abdomen) and No ascites Back/Spine/Pelvis Back: No CVA tenderness Skin Lesions: no lesions Rashes: no rashes Neuro General: patient alert and patient awake Cognition: normal cognition Speech: speech normal Extrem General: normal to inspection and capillary refill normal Psych Appearance: grossly normal and well kempt Course Orders Ordered: ED Orders 09/03/19 20:53 Complete Blood Count AUTO DIFF Stat Comprehensive Metabolic Panel Stat Lactate (Lactic Acid) Stat Lipase Stat 09/03/19 22:48 CT abdomen pelvis w con Stat 09/04/19 00:24 US abdomen limited Stat Discontinued Medications Sodium Chloride (Normal Saline 0.9%) 1,000 mls @ 1,000 mls/hr IV BOLUS ONE Stop: 09/03/19 23:47 Last Infusion: 09/04/19 03:21 Dose: 0 mls/hr Documented by: Admin: 09/03/19 23:06 Dose: 1,000 mls/hr Documented by: FANNY Morphine Sulfate (Morphine) 4 mg IV NOW ONE Stop: 09/03/19 23:53 Last Admin: 09/04/19 00:03 Dose: 4 mg Documented by: FANNY Ondansetron HCl (Zofran) 4 mg IV NOW ONE Stop: 09/03/19 23:53 Last Admin: 09/04/19 00:04 Dose: 4 mg Documented by: FHUDSON Vital Signs Vital signs: Vital Signs - 8 hr 09/03/19 22:38 09/04/19 00:12 Temperature 98.0 F Pulse Rate 75 64 Respiratory Rate 12 12 Blood Pressure 132/74 Blood Pressure [Left Arm] 127/61 Pulse Oximetry 99 97 Medical Decision Making Lab Data Lab results reviewed: Yes I reviewed the patient's lab results. Result diagrams: 09/03/19 20:53 09/03/19 20:53 Labs: Lab Results 09/03/19 09/03/19 09/03/19 Range/Units 20:53 20:53 20:53 WBC 7.0 (4.5-11.0) X10^3/uL RBC 4.94 (4.5-5.9) X10^6/uL Hgb 13.7 (13.5-17.5) g/dL Hct 40.0 L (41-53) % MCV 81.0 (80-100) fL MCH 27.8 (26-34) PG MCHC 34.3 (30-36) % RDW 14.4 (11.6-14.8) % Plt Count 387 (150-400) X10^3/uL Neut % (Auto) 46.1 L (50-75) % Lymph % (Auto) 41.4 H (25-40) % [place] % (Auto) 8.5 (3-14) % Eos % (Auto) 2.7 (2-4) % Baso % (Auto) 1.3 (0-2) % Neut # (Auto) 3200 (0468-7016) /uL Lymph # (Auto) 2900 (0559-1909) /uL [place] # (Auto) 600 (0-900) /uL Eos # (Auto) 200 (0-450) /uL Baso # (Auto) 100 (0-100) /uL Sodium 137 (137-145) mmol/L Potassium 3.9 (3.4-5.1) mmol/L Chloride 104 (98-107) mmol/L Carbon Dioxide 26 (22-32) mmol/L BUN 18 (9-20) mg/dL Creatinine 1.15 (0.66-1.25) mg/dL Estimated GFR > 60.0 (>60) mL/min BUN/Creatinine Ratio 15.7 (6-22) Glucose 130 H (70-100) mg/dL Lactate 1.0 (0.7-2.1) mmol/L Calcium 8.7 (8.4-10.2) mg/dL Total Bilirubin 0.2 (0.2-1.3) mg/dL AST 26 (17-59) IU/L ALT 29 (<50) IU/L Alkaline Phosphatase 83 (38-126) U/L Total Protein 6.9 (6.3-8.2) g/dL Albumin 4.1 (3.5-5.0) g/dL Globulin 2.8 (1.7-4.1) g/dL Albumin/Globulin Ratio 1.5 (1.0-2.8) Lipase 171 (23-300) U/L Imaging Data CT scan - abdomen/pelvis: Radiologist's Impression: No significant abnormalities US - abdomen: Radiologist's Impression: No significant abnormalities MDM Narrative Medical decision making narrative: CT scan right upper quadrant ultrasound show no acute pathology. His labs are unremarkable. Low suspicion for intra-abdominal surgical pathology given his workup today. Unsure the exact etiology but it does not appear to be an emergent condition. No indication for antibiotics. Feel we can hold on further workup for now. Patient was given return precautions and follow-up instructions. He expressed understanding and agreement. Discharge Plan Departure Patient Disposition: Home Clinical Impression: Abdominal pain Discharge Date/Time: 09/04/19 01:36 Instructions: DI for Abdominal Pain-Adult Activity Restrictions/Additional Instructions: Recommend that you contact your primary provider for follow-up. Also recommend that you take your MiraLax or Metamucil like we discussed to make sure that you are having normal regular bowel movements. Return to the emergency department for any new or worsening symptoms Prescriptions: No Action lisinopril 5 mg tablet 10 mg PO DAILY RF: 0 hydroxyzine HCl 50 mg tablet 50 mg PO BID RF: 0 buspirone 15 mg tablet 15 mg PO BID RF: 0 omeprazole 20 mg BID RF: 0 Referrals: Mady Kumar MD [Primary Care Provider] -
[2019-09-03 23:02] LABS: Add Manual Diff / Slide Review NO; Basophils Absolute Auto 100 /uL (0-100); Basophils Percent Auto 1.3 % (0-2); Eosinophils Absolute Auto 200 /uL (0-450); Eosinophils Percent Auto 2.7 % (2-4); Hemoglobin 13.7 g/dL (13.5-17.5); Lymphocytes Absolute Auto 2900 /uL (1100-4500); Lymphocytes Percent Auto 41.4 % (25-40); Mean Corpuscular HGB Conc 34.3 % (30-36); Mean Corpuscular Hemoglobin 27.8 PG (26-34); Monocytes Absolute Auto 600 /uL (0-900); Monocytes Percent Auto 8.5 % (3-14); Neutrophils Absolute Auto 3200 /uL (1500-7000); Neutrophils Percent Auto 46.1 % (50-75); Platelet Count 387 X10^3/uL (150-400); Red Blood Cell Count 4.94 X10^6/uL (4.5-5.9); Red Cell Distribution Width 14.4 % (11.6-14.8)
[2019-09-03] MEDS: SODIUM CHLORIDE 0.9% 1,000 ML 1000 ML IV (23:06)
[2019-09-03 23:11] LABS: Alanine Aminotransferase 29 IU/L (<50); Albumin 4.1 g/dL (3.5-5.0); Albumin Globulin Ratio 1.5 (1.0-2.8); Alkaline Phosphatase 83 U/L (38-126); Aspartate Aminotransferase 26 IU/L (17-59); BUN Creatinine Ratio 15.7 (6-22); Bilirubin Total 0.2 mg/dL (0.2-1.3); Blood Urea Nitrogen 18 mg/dL (9-20); Calcium 8.7 mg/dL (8.4-10.2); Carbon Dioxide 26 mmol/L (22-32); Chloride 104 mmol/L (98-107); Estimated Glomerular Filt Rate > 60.0 mL/min (>60); Globulin 2.8 g/dL (1.7-4.1); Glucose 130 mg/dL (70-100); HEMOLYSIS 15 (0-50); Lipase 171 U/L (23-300); Potassium 3.9 mmol/L (3.4-5.1); Sodium 137 mmol/L (137-145); Total Protein 6.9 g/dL (6.3-8.2)
[2019-09-04] MEDS: MORPHINE 4 MG/ML INJ IV (00:03)
[2019-09-04] MEDS: ONDANSETRON 4 MG/2 ML INJ IV (00:04)
[2019-09-04 00:12] VITALS: BP 127/61; PULSE 64; RESP 12; O2SAT 97
--- NOTE | 2019-09-04 00:24 | DI.US.S_ITS ---
PROCEDURE: US ABDOMEN LIMITED INDICATIONS: ruq pain TECHNIQUE: Real-time scanning was performed of the abdominal and retroperitoneal organs, with image documentation. COMPARISON: [facility], CT, CT ABDOMEN PELVIS W CON, 09/03/2019, 23:16. FINDINGS: Liver: Liver is mildly enlarged with steatosis. Gallbladder: Gallbladder is within normal limits. No stones. Wall thickness is unremarkable measuring 1.3 mm. Biliary ducts: Intrahepatic bile ducts are non-dilated. Extrahepatic bile duct caliber measures 4.3 mm. Normal is 6-7 mm or less in diameter, or 10 mm or less post-cholecystectomy. Pancreas: Not visualized. IMPRESSION: 1. Mild hepatomegaly with steatosis. 2. Gallbladder is unremarkable. The above findings are concordant with preliminary report. Dictated by: Sarah Yanez M.D. on 09/04/2019 at 9:47 Approved by: Sarah Yanez M.D. on 09/04/2019 at 9:48
== END 2019-09-04 01:36 | disposition home or self-care (01) ==
PROVIDERS: Emergency Provider Emergency Medicine; Family Provider Family Medicine; PCP Family Medicine
DX: R10.9 Unspecified abdominal pain (principal); K59.00 Constipation, unspecified
CPT/HCPCS: 36415; 74177; 76705; 80053; 83605; 83690; 85025; 96361; 96374; 96375; 99284; J2270; J2405

== ENCOUNTER 2020-03-21 03:15 | Emergency (ER) | payer OTHER, SELFPAY ==
[2018-02-26 12:17] VITALS: BMI 40.7
[2020-03-21 03:20] VITALS: BP 139/80; PULSE 78; RESP 16; TEMP 36.9; O2SAT 98; BMI 32.5
[2020-03-21 03:27] VITALS: PULSE 80; O2SAT 96
[2020-03-21 03:30] VITALS: BP 126/79; PULSE 83; O2SAT 98
--- NOTE | 2020-03-21 03:38 | DI.CT.S_ITS ---
PROCEDURE: CT ABDOMEN PELVIS W CON INDICATIONS: Left-sided abdominal pain TECHNIQUE: After the administration of intravenous contrast, 5 mm thick sections acquired from the diaphragm to the symphysis. 5 mm coronal and sagittal reformats were acquired. For radiation dose reduction, the following was used: automated exposure control, adjustment of mA and/or kV according to patient size. COMPARISON: [facility], CT, CT ABDOMEN PELVIS W CON, 09/03/2019, 23:16. FINDINGS: Image quality: Excellent. ABDOMEN: Lung bases: Lung bases are clear. Heart size is normal. Solid organs: Liver is normal in size and enhancement. Subcentimeter hypodensities are likely cysts but are too small to further characterize. Gallbladder is normal. Biliary system is non dilated. Pancreas enhances normally. Spleen is normal in size and enhancement. No adrenal nodules. Kidneys demonstrate normal size and enhancement, without hydronephrosis. Peritoneum and bowel: Bowel loops demonstrate normal wall thickness and caliber. No free fluid or air. There is diverticulosis without evidence of diverticulitis. The appendix is normal. A 16 millimeter fat attenuation with slight peripheral increased attenuation arising from the sigmoid colon is noted. Fluid-filled loops of mildly prominent small bowel could represent diverticulosis. Nodes and vessels: No retroperitoneal or mesenteric adenopathy by size criteria. Aorta and inferior vena cava are normal in size. Miscellaneous: No ventral hernias. PELVIS: Genitourinary: Bladder wall thickness is normal. Miscellaneous: No inguinal hernias or adenopathy. Bones: No suspicious bony lesions. No vertebral body compression fractures. IMPRESSION: 1. Fat density oval process in the sigmoid colon could represent a minimally inflamed epiploic appendage. It does not have the appearance of a diverticulum. 2. Diverticulosis without evidence of diverticulitis. 3. Mildly fluid-filled loops of small bowel measuring up to 2.7 centimeters in the left mid abdomen and left lower quadrant could represent enteritis. Comment: Final report is concordant with preliminary interpretation by [facility] Dictated by: Conrad Alvarado M.D. on 03/21/2020 at 8:10 Approved by: Conrad Alvarado M.D. on 03/21/2020 at 8:16
--- NOTE | 2020-03-21 03:38 | ED.GENADULT ---
HPI - General Adult General Chief complaint: Abdominal Pain Stated complaint: lower abd pain, has diverticulitis Time Seen by Provider: 03/21/20 03:17 Source: patient Mode of arrival: Wheelchair Limitations: no limitations History of Present Illness HPI narrative: Patient is a 54-year-old male. States he has had a history of diverticulitis in the past. Over the past several hours has developed suprapubic/lower abdominal discomfort. No diarrhea. Some nausea but no vomiting. No urinary symptoms. He states that it does feel somewhat like his prior history of diverticulitis although he does admit that he has had symptoms very similar to this in the past in his just been told that he was constipated. Earlier today for lunch he admitted that he had more fruit than what he normally eats. He also states that this evening he ate an entire chocolate bar that had peanuts in it and he was concerned that maybe was just what he ate that is causing his symptoms. No fevers. Has not tried anything for symptoms prior to arrival. Related Data Home Medications Medication Instructions Recorded Confirmed buspirone 15 mg tablet 15 mg PO BID 08/19/19 10/14/19 hydroxyzine HCl 50 mg tablet 50 mg PO BID 08/19/19 10/14/19 lisinopril 5 mg tablet 10 mg PO DAILY tab 08/19/19 10/14/19 omeprazole BID 08/27/19 10/14/19 Allergies Allergy/AdvReac Type Severity Reaction Status Date / Time codeine [CODEINE] Allergy Unknown Hives Verified 10/14/19 14:06 Review of Systems Constitutional Constitutional: Denies fever(s) and Denies headache(s) ENT Ears, Nose, Mouth, and Throat: Denies headache(s) Cardiovascular Cardiovascular: Denies chest pain and Denies dyspnea Respiratory Respiratory: Denies dyspnea Gastrointestinal Gastrointestinal: Reports abdominal pain, Reports nausea and Denies vomiting Genitourinary Genitourinary: Denies dysuria Genitourinary: Denies dysuria Musculoskeletal Musculoskeletal: Denies arthralgias and Denies myalgias Integumentary/Breasts Skin/Breast: Denies rash Neurologic Neurologic: Denies behavioral changes, Denies confusion and Denies headache(s) Psychiatric Psychiatric: Denies behavioral changes and Denies confusion Patient History Medical History Acute appendicitis Diverticulitis Hypertension Shingles Surgical History Hx of appendectomy Family History Mother Hypertension Social History marital status: household members: spouse and children occupational status: previously employed Smoking Status: Former smoker alcohol intake: current substance use type: does not use Smoking Status: Former smoker alcohol intake frequency: holidays/special occasions only Substance Use Type: marijuana Exam Initial Vital Signs Initial Vital Signs: Vital Signs Temperature 98.4 F 03/21/20 03:20 Pulse Rate 78 03/21/20 03:20 Respiratory Rate 16 03/21/20 03:20 Blood Pressure 139/80 03/21/20 03:20 Pulse Oximetry 98 03/21/20 03:20 Const General: cooperative and comfortable Limitations: mental status not altered HENMT Head: normal to inspection and normocephalic Resp Effort & Inspection: normal respiratory effort Auscultation: clear to auscultation bilaterally Cardio Rate: regular rate Rhythm: regular rhythm GI Inspection: non-distended Palpation: soft, No firm, No guarding and tender (Diffuse) Skin Lesions: no lesions Rashes: no rashes Neuro General: patient alert and patient awake Cognition: normal cognition Speech: speech normal Extrem General: capillary refill normal Psych Appearance: grossly normal and well kempt Course Orders Ordered: ED Orders 03/21/20 03:38 CT abdomen pelvis w con Stat 03/21/20 03:50 Complete Blood Count AUTO DIFF Stat Comprehensive Metabolic Panel Stat Lipase Stat Discontinued Medications Sodium Chloride (Normal Saline 0.9%) 1,000 mls @ 1,000 mls/hr IV BOLUS ONE Stop: 03/21/20 04:37 Last Admin: 03/21/20 03:55 Dose: 1,000 mls/hr Documented by: GILL Vital Signs Vital signs: Vital Signs - 8 hr 03/21/20 03:20 03/21/20 03:27 03/21/20 03:30 Temperature 98.4 F Pulse Rate 78 80 83 Respiratory Rate 16 Blood Pressure 139/80 126/79 Pulse Oximetry 98 96 98 Medical Decision Making Medical Records Medical records reviewed: Yes I reviewed the patient's medical records. Lab Data Lab results reviewed: Yes I reviewed the patient's lab results. Result diagrams: 03/21/20 03:50 03/21/20 03:50 Labs: Lab Results 03/21/20 03/21/20 Range/Units 03:50 03:50 WBC 6.5 (4.5-11.0) X10^3/uL RBC 4.86 (4.5-5.9) X10^6/uL Hgb 13.2 L (13.5-17.5) g/dL Hct 39.3 L (41-53) % MCV 80.9 (80-100) fL MCH 27.2 (26-34) PG MCHC 33.6 (30-36) % RDW 13.8 (11.6-14.8) % Plt Count 346 (150-400) X10^3/uL Neut % (Auto) 62.1 (50-75) % Lymph % (Auto) 22.6 L (25-40) % [place] % (Auto) 11.4 (3-14) % Eos % (Auto) 3.1 (2-4) % Baso % (Auto) 0.8 (0-2) % Neut # (Auto) 4000 (2316-2452) /uL Lymph # (Auto) 1500 (3839-5682) /uL [place] # (Auto) 700 (0-900) /uL Eos # (Auto) 200 (0-450) /uL Baso # (Auto) 0 (0-100) /uL Sodium 136 L (137-145) mmol/L Potassium 4.3 (3.4-5.1) mmol/L Chloride 102 (98-107) mmol/L Carbon Dioxide 30 (22-32) mmol/L BUN 18 (9-20) mg/dL Creatinine 1.20 (0.66-1.25) mg/dL Estimated GFR > 60.0 (>60) mL/min BUN/Creatinine Ratio 15.0 (6-22) Glucose 114 H (70-100) mg/dL Calcium 8.5 (8.4-10.2) mg/dL Total Bilirubin 0.1 L (0.2-1.3) mg/dL AST 29 (17-59) IU/L ALT 37 (<50) IU/L Alkaline Phosphatase 83 (38-126) U/L Total Protein 7.2 (6.3-8.2) g/dL Albumin 4.2 (3.5-5.0) g/dL Globulin 3.0 (1.7-4.1) g/dL Albumin/Globulin Ratio 1.4 (1.0-2.8) Lipase 88 (23-300) U/L Imaging Data CT scan - abdomen/pelvis: Radiologist's Impression: There is a single fat density oval process associated with the sigmoid colon which could represent a minimally inflamed epiploic appendage. It does not have the appearance of a diverticulum although there are scattered noninflamed diverticula present. Multiple nondilated fluid-filled loops of small bowel measuring up to 2.7 cm, predominantly in the left mid abdomen and left lower quadrant which could reflect enteritis. [facility] Narrative Medical decision making narrative: Patient does have a relatively benign abdominal exam. His labs are unremarkable. His CT scan does not definitively show diverticulitis. I have a high suspicion that his symptoms are related to the change in diet that he has had over the past 24 hours to include decrease in the amount of fruit that he normally eats and also the candy bar that he had this evening. There is no indication for antibiotics. I did discuss this with the patient. I feel patient could be discharged home. He was given return precautions and follow-up instructions. He expressed understanding and agreement. Discharge Plan Departure Patient Disposition: Home Clinical Impression: Abdominal pain Instructions: DI for Abdominal Pain-Adult Activity Restrictions/Additional Instructions: The CT scan does not have any findings that would require antibiotics. I would not be surprised if you develop some diarrhea over the next 24-48 hours. If this occurs just be sure to stay hydrated. Return to the emergency department for any new or worsening symptoms. Prescriptions: No Action lisinopril 5 mg tablet 10 mg PO DAILY RF: 0 hydroxyzine HCl 50 mg tablet 50 mg PO BID RF: 0 buspirone 15 mg tablet 15 mg PO BID RF: 0 omeprazole 20 mg BID RF: 0 Referrals: Mady Kumar MD [Primary Care Provider] -
[2020-03-21] MEDS: SODIUM CHLORIDE 0.9% 1,000 ML 1000 ML IV (03:55)
[2020-03-21 03:57] LABS: Add Manual Diff / Slide Review NO; Basophils Absolute Auto 0 /uL (0-100); Basophils Percent Auto 0.8 % (0-2); Eosinophils Absolute Auto 200 /uL (0-450); Eosinophils Percent Auto 3.1 % (2-4); Hematocrit 39.3 % (41-53); Hemoglobin 13.2 g/dL (13.5-17.5); Lymphocytes Absolute Auto 1500 /uL (1100-4500); Lymphocytes Percent Auto 22.6 % (25-40); Mean Corpuscular HGB Conc 33.6 % (30-36); Mean Corpuscular Hemoglobin 27.2 PG (26-34); Mean Corpuscular Volume 80.9 fL (80-100); Monocytes Absolute Auto 700 /uL (0-900); Monocytes Percent Auto 11.4 % (3-14); Neutrophils Absolute Auto 4000 /uL (1500-7000); Neutrophils Percent Auto 62.1 % (50-75); Platelet Count 346 X10^3/uL (150-400); Red Blood Cell Count 4.86 X10^6/uL (4.5-5.9); Red Cell Distribution Width 13.8 % (11.6-14.8); White Blood Cell Count 6.5 X10^3/uL (4.5-11.0)
[2020-03-21 04:10] LABS: Alanine Aminotransferase 37 IU/L (<50); Albumin 4.2 g/dL (3.5-5.0); Albumin Globulin Ratio 1.4 (1.0-2.8); Alkaline Phosphatase 83 U/L (38-126); Aspartate Aminotransferase 29 IU/L (17-59); Bilirubin Total 0.1 mg/dL (0.2-1.3); Blood Urea Nitrogen 18 mg/dL (9-20); Calcium 8.5 mg/dL (8.4-10.2); Carbon Dioxide 30 mmol/L (22-32); Chloride 102 mmol/L (98-107); Estimated Glomerular Filt Rate > 60.0 mL/min (>60); Glucose 114 mg/dL (70-100); HEMOLYSIS < 15 (0-50); Lipase 88 U/L (23-300); Potassium 4.3 mmol/L (3.4-5.1); Sodium 136 mmol/L (137-145); Total Protein 7.2 g/dL (6.3-8.2)
[2020-03-21 05:29] VITALS: BP 124/77; PULSE 69; RESP 15; O2SAT 98
== END 2020-03-21 05:25 | disposition home or self-care (01) ==
PROVIDERS: Emergency Provider Emergency Medicine; Family Provider Family Medicine; PCP Family Medicine
DX: R10.30 Lower abdominal pain, unspecified (principal); R11.0 Nausea; I10 Essential (primary) hypertension; Z87.19 Personal history of other diseases of the digestive system
CPT/HCPCS: 36415; 74177; 80053; 83690; 85025; 96360; 99283; 99284; Q9967

== ENCOUNTER 2020-06-04 03:14 | Emergency (ER) | payer OTHER, SELFPAY ==
[2018-02-26 12:17] VITALS: BMI 40.7
--- NOTE | 2020-06-04 03:20 | ED_ITS ---
HPI - General Adult General Chief complaint: Chest Pain Stated complaint: chest pain Time Seen by Provider: 06/04/20 03:18 Source: patient Mode of arrival: Ambulatory Limitations: no limitations History of Present Illness HPI narrative: Patient is a 54-year-old male here for evaluation of right-sided chest discomfort. He states that it started yesterday and it was off and on however the episode that brought him in the emergency department woke him from sleep about 1 hour prior to arrival. He states this on the right side of his chest. It does cause him to have some shortness of breath because it hurts when he takes a deep breath. He can also touch the area and cause it to be painful. He was concerned that maybe was his heart. He has not tried anything for the symptoms prior to arrival. Related Data Home Medications Medication Instructions Recorded Confirmed buspirone 15 mg tablet 15 mg PO BID 08/19/19 10/14/19 hydroxyzine HCl 50 mg tablet 50 mg PO BID 08/19/19 10/14/19 lisinopril 5 mg tablet 10 mg PO DAILY tab 08/19/19 10/14/19 omeprazole BID 08/27/19 10/14/19 Allergies Allergy/AdvReac Type Severity Reaction Status Date / Time codeine [CODEINE] Allergy Unknown Hives Verified 10/14/19 14:06 Review of Systems Constitutional Constitutional: Denies fever(s) Cardiovascular Cardiovascular: Reports chest pain, Denies irregular heart rhythm and Denies radiating jaw, neck or arm pain Respiratory Respiratory: Denies cough and Reports pain on inspiration Gastrointestinal Gastrointestinal: Denies abdominal pain Integumentary/Breasts Skin/Breast: Denies lesions and Denies rash Neurologic Neurologic: Denies behavioral changes Psychiatric Psychiatric: Denies behavioral changes Hematologic/Lymphatic On Anticoagulants: No Allergic/Immunologic Allergic/Immunologic: Denies urticaria Patient History Medical History Acute appendicitis Diverticulitis Hypertension Shingles Surgical History Hx of appendectomy Family History Mother Hypertension Social History marital status: household members: spouse and children occupational status: previously employed Smoking Status: Former smoker alcohol intake: current substance use type: does not use Smoking Status: Former smoker alcohol intake frequency: holidays/special occasions only Substance Use Type: marijuana Exam Initial Vital Signs Initial Vital Signs: Vital Signs Temperature 99.1 F 06/04/20 03:23 Pulse Rate 72 06/04/20 03:23 Respiratory Rate 17 06/04/20 03:23 Blood Pressure 157/80 H 06/04/20 03:23 Pulse Oximetry 97 06/04/20 03:23 Const General: cooperative and comfortable Limitations: mental status not altered HENME Head: normal to inspection and normocephalic Chest Chest: No crepitus and tenderness (Right-sided chest) Resp Effort & Inspection: normal respiratory effort Auscultation: clear to auscultation bilaterally GI Inspection: non-distended Palpation: soft Skin Lesions: no lesions Rashes: no rashes Neuro General: patient alert, patient awake and patient oriented x3 Extrem General: normal to inspection and capillary refill normal Psych Appearance: grossly normal and well kempt Course Orders Ordered: ED Orders 06/04/20 03:20 Complete Blood Count AUTO DIFF Stat Comprehensive Metabolic Panel Stat Lipase Stat Troponin & CK Cardiac Panel Stat 06/04/20 03:21 EKG-12 Lead Stat 06/04/20 03:23 XR chest 1V Stat Discontinued Medications Ketorolac Tromethamine (Ketorolac 60 Mg/2 Ml Vial) 30 mg IV NOW ONE Stop: 06/04/20 03:51 Last Admin: 06/04/20 03:59 Dose: 30 mg Documented by: DANNY Vital Signs Vital signs: Vital Signs - 8 hr 06/04/20 03:23 Temperature 99.1 F Pulse Rate 72 Respiratory Rate 17 Blood Pressure 157/80 H Pulse Oximetry 97 Medical Decision Making Lab Data Lab results reviewed: Yes I reviewed the patient's lab results. Result diagrams: 06/04/20 03:20 06/04/20 03:20 Labs: Lab Results 06/04/20 06/04/20 Range/Units 03:20 03:20 WBC 7.8 (4.5-11.0) X10^3/uL RBC 5.18 (4.5-5.9) X10^6/uL Hgb 14.2 (13.5-17.5) g/dL Hct 42.1 (41-53) % MCV 81.3 (80-100) fL MCH 27.4 (26-34) PG MCHC 33.7 (30-36) % RDW 14.2 (11.6-14.8) % Plt Count 393 (150-400) X10^3/uL Neut % (Auto) 62.3 (50-75) % Lymph % (Auto) 23.9 L (25-40) % [place] % (Auto) 5.6 (3-14) % Eos % (Auto) 2.5 (2-4) % Baso % (Auto) 5.7 H (0-2) % Neut # (Auto) 4800 (3886-0768) /uL Lymph # (Auto) 1900 (2889-4235) /uL [place] # (Auto) 400 (0-900) /uL Eos # (Auto) 200 (0-450) /uL Baso # (Auto) 400 H (0-100) /uL Sodium 136 L (137-145) mmol/L Potassium 4.3 (3.4-5.1) mmol/L Chloride 100 (98-107) mmol/L Carbon Dioxide 30 (22-32) mmol/L BUN 17 (9-20) mg/dL Creatinine 1.17 (0.66-1.25) mg/dL Estimated GFR > 60.0 (>60) mL/min BUN/Creatinine Ratio 14.5 (6-22) Glucose 116 H (70-100) mg/dL Calcium 9.6 (8.4-10.2) mg/dL Total Bilirubin 0.2 (0.2-1.3) mg/dL AST 30 (17-59) IU/L ALT 39 (<50) IU/L Alkaline Phosphatase 95 (38-126) U/L Total Creatine Kinase 123 (55-170) U/L CK-MB (CK-2) 0.92 (<2.37) ng/mL CK-MB (CK-2) Rel Index 0.7 L (1.5-5.0) % Troponin I < 0.012 (0.01-0.034) ng/mL Total Protein 7.7 (6.3-8.2) g/dL Albumin 4.6 (3.5-5.0) g/dL Globulin 3.1 (1.7-4.1) g/dL Albumin/Globulin Ratio 1.5 (1.0-2.8) Lipase 86 (23-300) U/L Imaging Data Chest x-ray: Radiologist's Impression: No acute cardiopulmonary disease demonstrated ECG Data Attestation: I personally reviewed and interpreted this ECG as follows: Prior ECG tracings: not available for review Interpretation: Sinus rhythm Ventricular rate is 69 Normal axis Normal QRS Normal QTC No ST T wave changes MDM Narrative Medical decision making narrative: Patient is clearly reproducible right-sided chest wall discomfort. His EKG chest x-ray and labs are all Unremarkable. Low suspicion for ACS. Low suspicion for pneumonia. Low suspicion for PE. Do suspect this is muscular in origin. He was given Toradol which seemed to improve his symptoms somewhat. Patient could be safely discharged home without further workup although he was given return precautions and follow-up instructions. Expressed understanding agreement. Discharge Plan Departure Patient Disposition: Home Clinical Impression: Acute chest wall pain Instructions: Muscle Strain Activity Restrictions/Additional Instructions: Your workup today is more concerning for a muscular cause of her symptoms and not a heart cause of your symptoms. I do recommend light stretching and also anti-inflammatories. Contact your primary provider for follow-up. Return to the emergency department for any new or worsening symptoms Prescriptions: No Action lisinopril 5 mg tablet 10 mg PO DAILY RF: 0 hydroxyzine HCl 50 mg tablet 50 mg PO BID RF: 0 buspirone 15 mg tablet 15 mg PO BID RF: 0 omeprazole 20 mg BID RF: 0 Referrals: Mady Kumar MD [Primary Care Provider] -
[2020-06-04 03:23] VITALS: BP 157/80; PULSE 72; RESP 17; TEMP 37.3; O2SAT 97; BMI 43.5
--- NOTE | 2020-06-04 03:23 | DI.RAD.S_ITS ---
PROCEDURE: XR CHEST 1V INDICATIONS: Chest pain TECHNIQUE: One view of the chest was acquired. COMPARISON: [facility], CR, XR CHEST 1 VIEW, 12/18/2018, 13:54. [facility], CR, CHEST 1 VIEW, 03/19/2016, 20:23. FINDINGS: Surgical changes and devices: None. Lungs and pleura: An incomplete inspiratory result is noted, causing a crowded appearance to the lung markings. No focal infiltrates are seen. No pneumothorax or significant pleural effusions are seen. Mediastinum: Mediastinal contours appear normal. Heart size is normal. Bones and chest wall: No suspicious bony lesions. Age-appropriate bony degenerative changes are seen. Overlying soft tissues appear unremarkable. IMPRESSION: Portable chest within normal limits. Note: No significant discrepancy from the preliminary report. Dictated by: Jacob Byrd M.D. on 06/04/2020 at 7:53 Approved by: Jacob Byrd M.D. on 06/04/2020 at 7:53
[2020-06-04 03:46] LABS: Add Manual Diff / Slide Review NO; Basophils Absolute Auto 400 /uL (0-100); Basophils Percent Auto 5.7 % (0-2); Eosinophils Absolute Auto 200 /uL (0-450); Eosinophils Percent Auto 2.5 % (2-4); Hematocrit 42.1 % (41-53); Hemoglobin 14.2 g/dL (13.5-17.5); Lymphocytes Absolute Auto 1900 /uL (1100-4500); Lymphocytes Percent Auto 23.9 % (25-40); Mean Corpuscular HGB Conc 33.7 % (30-36); Mean Corpuscular Hemoglobin 27.4 PG (26-34); Mean Corpuscular Volume 81.3 fL (80-100); Monocytes Absolute Auto 400 /uL (0-900); Monocytes Percent Auto 5.6 % (3-14); Neutrophils Absolute Auto 4800 /uL (1500-7000); Neutrophils Percent Auto 62.3 % (50-75); Platelet Count 393 X10^3/uL (150-400); Red Blood Cell Count 5.18 X10^6/uL (4.5-5.9); Red Cell Distribution Width 14.2 % (11.6-14.8); White Blood Cell Count 7.8 X10^3/uL (4.5-11.0)
[2020-06-04 03:51] LABS: Alanine Aminotransferase 39 IU/L (<50); Albumin 4.6 g/dL (3.5-5.0); Albumin Globulin Ratio 1.5 (1.0-2.8); Alkaline Phosphatase 95 U/L (38-126); Aspartate Aminotransferase 30 IU/L (17-59); BUN Creatinine Ratio 14.5 (6-22); Bilirubin Total 0.2 mg/dL (0.2-1.3); Blood Urea Nitrogen 17 mg/dL (9-20); Calcium 9.6 mg/dL (8.4-10.2); Carbon Dioxide 30 mmol/L (22-32); Chloride 100 mmol/L (98-107); Creatine Kinase 123 U/L (55-170); Estimated Glomerular Filt Rate > 60.0 mL/min (>60); Globulin 3.1 g/dL (1.7-4.1); Glucose 116 mg/dL (70-100); HEMOLYSIS < 15 (0-50); Lipase 86 U/L (23-300); Potassium 4.3 mmol/L (3.4-5.1); Sodium 136 mmol/L (137-145); Total Protein 7.7 g/dL (6.3-8.2)
[2020-06-04] MEDS: KETOROLAC 60 MG/2 ML VIAL 30 MG IV (03:59)
[2020-06-04 04:03] LABS: Troponin I < 0.012 ng/mL (0.01-0.034)
[2020-06-04 04:06] LABS: CKMB % Relative Index 0.7 % (1.5-5.0); Creatine Kinase MB 0.92 ng/mL (<2.37)
[2020-06-04 04:27] VITALS: BP 128/79; PULSE 68; RESP 18; O2SAT 98
== END 2020-06-04 04:33 | disposition home or self-care (01) ==
PROVIDERS: Emergency Provider Emergency Medicine; Family Provider Family Medicine; PCP Family Medicine
DX: R07.89 Other chest pain (principal)
CPT/HCPCS: 36415; 71045; 80053; 82550; 82553; 83690; 84484; 85025; 93005; 96374; 99284; J1885

== ENCOUNTER 2020-11-11 13:59 | Emergency (ER) | payer OTHER, SELFPAY ==
[2018-02-26 12:17] VITALS: BMI 40.7
[2020-11-11] VITALS (21 sets, daily range): BP systolic 118–136; BP diastolic 64–104; PULSE 65–103; RESP 15–28; TEMP 36.8; O2SAT 94–99; BMI 45.0
--- NOTE | 2020-11-11 14:08 | DI.RAD.S_ITS ---
PROCEDURE: XR CHEST 1V INDICATIONS: chest pain TECHNIQUE: One view of the chest was acquired. COMPARISON: [facility], CR, XR CHEST 1V, 06/04/2020, 3:30. FINDINGS: Surgical changes and devices: None. Lungs and pleura: Lungs are clear. No pleural effusions or pneumothorax. Mediastinum: Mediastinal contours appear normal. Heart size is normal. Bones and chest wall: No suspicious bony lesions. Overlying soft tissues appear unremarkable. No acute cardiopulmonary disease process. Dictated by: Rosemary Valles MD, PhD on 11/11/2020 at 14:36 Approved by: Rosemary Valles MD, PhD on 11/11/2020 at 14:36
[2020-11-11 14:48] LABS: Add Manual Diff / Slide Review NO; Basophils Absolute Auto 100 /uL (0-100); Basophils Percent Auto 1.4 % (0-2); Eosinophils Absolute Auto 300 /uL (0-450); Eosinophils Percent Auto 5.1 % (2-4); Hematocrit 38.2 % (41-53); Lymphocytes Absolute Auto 2000 /uL (1100-4500); Mean Corpuscular Hemoglobin 27.1 PG (26-34); Mean Corpuscular Volume 79.8 fL (80-100); Monocytes Absolute Auto 600 /uL (0-900); Monocytes Percent Auto 9.7 % (3-14); Neutrophils Absolute Auto 3000 /uL (1500-7000); Neutrophils Percent Auto 50.8 % (50-75); Platelet Count 363 X10^3/uL (150-400); Red Blood Cell Count 4.79 X10^6/uL (4.5-5.9); Red Cell Distribution Width 13.7 % (11.6-14.8); White Blood Cell Count 5.9 X10^3/uL (4.5-11.0)
[2020-11-11 14:59] LABS: Alanine Aminotransferase 54 IU/L (<50); Albumin 4.3 g/dL (3.5-5.0); Albumin Globulin Ratio 1.4 (1.0-2.8); Alkaline Phosphatase 84 U/L (38-126); Aspartate Aminotransferase 50 IU/L (17-59); Bilirubin Total 0.4 mg/dL (0.2-1.3); Blood Urea Nitrogen 15 mg/dL (9-20); Calcium 8.7 mg/dL (8.4-10.2); Carbon Dioxide 27 mmol/L (22-32); Chloride 103 mmol/L (98-107); Creatine Kinase 300 U/L (55-170); Estimated Glomerular Filt Rate > 60.0 mL/min (>60); Glucose 110 mg/dL (70-100); HEMOLYSIS < 15 (0-50); Lipase 91 U/L (23-300); Potassium 3.9 mmol/L (3.4-5.1); Sodium 136 mmol/L (137-145); Total Protein 7.3 g/dL (6.3-8.2)
[2020-11-11 15:10] LABS: Troponin I < 0.012 ng/mL (0.01-0.034)
[2020-11-11 15:14] LABS: CKMB % Relative Index 0.8 % (1.5-5.0); Creatine Kinase MB 2.48 ng/mL (<2.37)
--- NOTE | 2020-11-11 17:03 | PC.NURSE ---
pt states increased stress and decreased sleep at night due to getting up and going fishing. Pt states this pain has happened before and attributes it to the muscle around my heart. pain increased with deep breath. placed on bedside monitor.
--- NOTE | 2020-11-11 18:42 | ED_ITS ---
HPI - Chest Pain General Chief Complaint: Chest Pain Stated Complaint: Chest pains Time Seen by Provider: 11/11/20 17:33 Source: patient Mode of arrival: Wheelchair Limitations: no limitations History of Present Illness HPI narrative: 54-year-old male former smoker with history of hypertension and GERD presents with a chief complaint of left anterior chest pressure and squeezing woke him from rest about 1 hour prior to arrival. He states that at its most intense his pain was a 9/10 it is currently a 3/10. He denies any obvious provocation or palliation. He denies any radiation. He states that he has felt short of breath. He admits to some nausea and unexplained diaphoresis at its onset but that has since resolved. He denies any recent travel or history of blood clot. He has never had a heart attack. His last cardiac evaluation was about 1 year ago. Related Data Home Medications Medication Instructions Recorded Confirmed buspirone 15 mg tablet 15 mg PO BID 08/19/19 10/14/19 hydroxyzine HCl 50 mg tablet 50 mg PO BID 08/19/19 10/14/19 lisinopril 5 mg tablet 10 mg PO DAILY tab 08/19/19 10/14/19 omeprazole BID 08/27/19 10/14/19 Allergies Allergy/AdvReac Type Severity Reaction Status Date / Time codeine [CODEINE] Allergy Unknown Hives Verified 11/11/20 14:05 Review of Systems Review of Systems Narrative: GENERAL: See HPI HEENT: Denies sinus pain, ear pain, sore throat, difficulty swallowing, dizziness. RESPIRATORY: See HPI CARDIOVASCULAR: See HPI, GASTROINTESTINAL: See HPI : Denies dysuria, frequency, incontinence, hematuria, urinary retention. MUSCULOSKELETAL: denies weakness, joint pain, or bony pain SKIN: Denies rash, skin lesions, or other NEUROLOGIC: Denies weakness, headache, numbness, change in speech, confusion, seizures, incoordination. PSYCHIATRIC: No concerning psychosocial issues. 12 point review of systems is negative except for those stated above Patient History Medical History Acute appendicitis Diverticulitis Hypertension Shingles Surgical History Hx of appendectomy Family History Mother Hypertension Social History marital status: household members: spouse and children occupational status: previously employed Smoking Status: Former smoker alcohol intake: current substance use type: does not use Smoking Status: Former smoker alcohol intake frequency: holidays/special occasions only Substance Use Type: marijuana Exam Narrative Exam Narrative: GENERAL: [54 year old patient appears stated age. Well-developed patient, in mild distress. HEAD: Atraumatic. Normocephalic. EYES: Pupils equal round and reactive. Extraocular motions intact. No scleral icterus. No injection or drainage. ENT: Nose without bleeding, purulent drainage. Throat without erythema, tonsillar hypertrophy or exudate. Airway patent. NECK: Trachea midline. Non tender CARDIOVASCULAR: Regular rate and rhythm without murmurs, gallops, or rubs. RESPIRATORY: Clear to auscultation. Breath sounds equal bilaterally. No wheezes, rales, or rhonchi. GASTROINTESTINAL: Abdomen soft, non-tender, nondistended. EXTREMITIES: No edema or joint tenderness. BACK: Nontender without deformity or crepitance. No flank tenderness. NEURO: AOx3. SKIN: No rash or erythema of visible areas Initial Vital Signs Initial Vital Signs: Vital Signs Temperature 98.3 F 11/11/20 14:05 Pulse Rate 84 11/11/20 14:05 Respiratory Rate 16 11/11/20 14:05 Blood Pressure 129/80 11/11/20 14:05 Pulse Oximetry 94 11/11/20 14:05 Scores HEART Score Heart Score history: Highly Suspicious Heart Score EKG: Normal Heart Score Age: 45-64 years old Heart Score risk factors: 1-2 risk factors Heart Score troponin: < or = to normal limit Heart Score Total: 4 Course Orders Ordered: ED Orders 11/11/20 14:08 XR chest 1V Stat EKG-12 Lead Stat 11/11/20 14:34 Complete Blood Count AUTO DIFF Stat Comprehensive Metabolic Panel Stat Lipase Stat Troponin & CK Cardiac Panel Stat 11/11/20 18:43 EKG-12 Lead Stat 11/11/20 18:54 Troponin I Stat 11/11/20 22:03 COVID19 -Nasal swab/Pre-Proc Stat Nitroglycerin (Nitroglycerin 0.4 Mg Sl Tab) 0.4 mg SL [id number] PRN PRN Reason: Chest Pain Discontinued Medications Aspirin (Aspirin 81 Mg Chew Tab) 324 mg PO NOW ONE Stop: 11/11/20 19:04 Last Admin: 11/11/20 19:27 Dose: 324 mg Documented by: DWIGHT Reevaluation(s) Reevaluation #1: pain free after nitro. Resting comfortably Time: 21:30 Consultations Consultation #1: discussed with Dr. Ospina. Also concerned about the story. Recommends transfer to [facility], very likely to need a cath Consultation #2: discussed with [facility] hospitalist, Dr. Coronado, happy to accept Vital Signs Vital signs: Vital Signs - 8 hr 11/11/20 16:40 11/11/20 17:00 11/11/20 17:30 Pulse Rate 75 103 H 69 Respiratory Rate 22 24 16 Blood Pressure 134/85 134/85 Pulse Oximetry 96 95 11/11/20 17:31 11/11/20 18:00 11/11/20 18:01 Pulse Rate 68 70 71 Respiratory Rate 15 20 28 H Blood Pressure 135/72 133/75 Pulse Oximetry 96 96 96 11/11/20 18:30 11/11/20 18:31 11/11/20 19:00 Pulse Rate 67 67 70 Respiratory Rate 18 16 20 Blood Pressure 124/64 136/73 Pulse Oximetry 95 95 99 11/11/20 19:30 11/11/20 19:31 11/11/20 20:00 Pulse Rate 69 69 65 Respiratory Rate 17 18 20 Blood Pressure 130/104 H Pulse Oximetry 98 96 97 11/11/20 20:01 11/11/20 20:30 11/11/20 21:00 Pulse Rate 71 72 73 Respiratory Rate 18 17 Blood Pressure 118/67 Pulse Oximetry 96 11/11/20 21:30 Pulse Rate 72 Respiratory Rate 16 Blood Pressure Pulse Oximetry MDM - Chest Pain Lab Data Result diagrams: 11/11/20 14:34 11/11/20 14:34 Labs: Lab Results 11/11/20 11/11/20 11/11/20 Range/Units 14:34 14:34 18:54 WBC 5.9 (4.5-11.0) X10^3/uL RBC 4.79 (4.5-5.9) X10^6/uL Hgb 13.0 L (13.5-17.5) g/dL Hct 38.2 L (41-53) % MCV 79.8 L (80-100) fL MCH 27.1 (26-34) PG MCHC 34.0 (30-36) % RDW 13.7 (11.6-14.8) % Plt Count 363 (150-400) X10^3/uL Neut % (Auto) 50.8 (50-75) % Lymph % (Auto) 33.0 (25-40) % [place] % (Auto) 9.7 (3-14) % Eos % (Auto) 5.1 H (2-4) % Baso % (Auto) 1.4 (0-2) % Neut # (Auto) 3000 (8940-4831) /uL Lymph # (Auto) 2000 (8896-0571) /uL [place] # (Auto) 600 (0-900) /uL Eos # (Auto) 300 (0-450) /uL Baso # (Auto) 100 (0-100) /uL Sodium 136 L (137-145) mmol/L Potassium 3.9 (3.4-5.1) mmol/L Chloride 103 (98-107) mmol/L Carbon Dioxide 27 (22-32) mmol/L BUN 15 (9-20) mg/dL Creatinine 1.15 (0.66-1.25) mg/dL Estimated GFR > 60.0 (>60) mL/min BUN/Creatinine Ratio 13.0 (6-22) Glucose 110 H (70-100) mg/dL Calcium 8.7 (8.4-10.2) mg/dL Total Bilirubin 0.4 (0.2-1.3) mg/dL AST 50 (17-59) IU/L ALT 54 H (<50) IU/L Alkaline Phosphatase 84 (38-126) U/L Total Creatine Kinase 300 H (55-170) U/L CK-MB (CK-2) 2.48 H (<2.37) ng/mL CK-MB (CK-2) Rel Index 0.8 L (1.5-5.0) % Troponin I < 0.012 < 0.012 (0.01-0.034) ng/mL Total Protein 7.3 (6.3-8.2) g/dL Albumin 4.3 (3.5-5.0) g/dL Globulin 3.0 (1.7-4.1) g/dL Albumin/Globulin Ratio 1.4 (1.0-2.8) Lipase 91 (23-300) U/L SARS-CoV-2 (PCR) (Negative) 11/11/20 Range/Units 22:03 WBC (4.5-11.0) X10^3/uL RBC (4.5-5.9) X10^6/uL Hgb (13.5-17.5) g/dL Hct (41-53) % MCV (80-100) fL MCH (26-34) PG MCHC (30-36) % RDW (11.6-14.8) % Plt Count (150-400) X10^3/uL Neut % (Auto) (50-75) % Lymph % (Auto) (25-40) % [place] % (Auto) (3-14) % Eos % (Auto) (2-4) % Baso % (Auto) (0-2) % Neut # (Auto) (4290-7605) /uL Lymph # (Auto) (7043-3073) /uL [place] # (Auto) (0-900) /uL Eos # (Auto) (0-450) /uL Baso # (Auto) (0-100) /uL Sodium (137-145) mmol/L Potassium (3.4-5.1) mmol/L Chloride (98-107) mmol/L Carbon Dioxide (22-32) mmol/L BUN (9-20) mg/dL Creatinine (0.66-1.25) mg/dL Estimated GFR (>60) mL/min BUN/Creatinine Ratio (6-22) Glucose (70-100) mg/dL Calcium (8.4-10.2) mg/dL Total Bilirubin (0.2-1.3) mg/dL AST (17-59) IU/L ALT (<50) IU/L Alkaline Phosphatase (38-126) U/L Total Creatine Kinase (55-170) U/L CK-MB (CK-2) (<2.37) ng/mL CK-MB (CK-2) Rel Index (1.5-5.0) % Troponin I (0.01-0.034) ng/mL Total Protein (6.3-8.2) g/dL Albumin (3.5-5.0) g/dL Globulin (1.7-4.1) g/dL Albumin/Globulin Ratio (1.0-2.8) Lipase (23-300) U/L SARS-CoV-2 (PCR) Negative (Negative) Imaging Data Chest x-ray: Radiologist's Impression: [address] [address] XRay Report Signed Patient: Elder Bailey MR#: [id number] : 1965 Acct:[id number] Age/Sex: 54 / M Date of Service: 11/11/20 Loc: ED Accession Number: [id number] ?? Procedure: XR chest 1V PROCEDURE:? XR CHEST 1V ? INDICATIONS:? chest pain ? TECHNIQUE:? One view of the chest was acquired.? ? COMPARISON:? [facility], CR, XR CHEST 1V, 06/04/2020, 3:30. ? FINDINGS:? ? Surgical changes and devices:? None.? ? Lungs and pleura:? Lungs are clear.? No pleural effusions or pneumothorax.? ? Mediastinum:? Mediastinal contours appear normal.? Heart size is normal.? ? Bones and chest wall:? No suspicious bony lesions.? Overlying soft tissues appear unremarkable.? ? No acute cardiopulmonary disease process. ? Dictated by: Rosemary Valles MD, PhD on 11/11/2020 at 14:36 ? ? Approved by: Rosemary Valles MD, PhD on 11/11/2020 at 14:36 ? ECG Data Interpretation: EKG #1: EKG is normal sinus rhythm rate [80 ] and free of any signs of ischemia or ectopy. No ST segmental elevation or depression. No T wave inversions EKG #2: EKG is normal sinus rhythm rate [72 ] and free of any signs of ischemia or ectopy. No ST segmental elevation or depression. No T wave inversions Critical Care Time Critical Care Time Attestation: The high probability of a clinically significant, sudden or life threatening deterioration of the [CV] system(s) required my full and direct attention, intervention and personal management. The aggregate critical care time was [30] minutes. This time is in addition to time spent performing reported procedures but includes the following: [x] Data Review and interpretation [x] Patient assessment and monitoring of vital signs [x] Documentation [x] Medication orders and management Discharge Plan Departure Patient Disposition: [facility] Clinical Impression: Chest pain Qualifiers: Chest pain type: unspecified Qualified Code(s): R07.9 - Chest pain, unspecified Prescriptions: No Action lisinopril 5 mg tablet 10 mg PO DAILY RF: 0 hydroxyzine HCl 50 mg tablet 50 mg PO BID RF: 0 buspirone 15 mg tablet 15 mg PO BID RF: 0 omeprazole 20 mg BID RF: 0 Referrals: Mady Kumar MD [Primary Care Provider] -
[2020-11-11 19:23] LABS: Troponin I < 0.012 ng/mL (0.01-0.034)
[2020-11-11] MEDS: ASPIRIN 81 MG CHEW TAB 324 MG PO (19:27)
[2020-11-11 22:28] LABS: COVID19 -Nasal RAPID Negative (Negative)
--- NOTE | 2020-11-11 22:35 | PC.NURSE ---
First attempt to call report to [facility]. No answer
== END 2020-11-11 23:09 | disposition short-term general hospital (02) ==
PROVIDERS: Emergency Medicine; Emergency Provider Emergency Medicine; Family Provider Family Medicine; PCP Family Medicine
DX: R07.9 Chest pain, unspecified (principal); R11.0 Nausea; Z20.822 Contact with and (suspected) exposure to COVID-19
CPT/HCPCS: 36415; 71045; 80053; 82550; 82553; 83690; 84484; 85025; 87635; 93005; 99284; 99291; C9803

== ENCOUNTER 2020-12-13 16:14 | Emergency (ER) | payer OTHER, SELFPAY ==
[2018-02-26 12:17] VITALS: BMI 40.7
[2020-12-13] VITALS (11 sets, daily range): BP systolic 128–148; BP diastolic 66–83; PULSE 51–58; RESP 14–28; TEMP 36.3; O2SAT 95–98; BMI 44.3
--- NOTE | 2020-12-13 16:20 | DI.RAD.S_ITS ---
PROCEDURE: XR CHEST 1V INDICATIONS: Chest pain TECHNIQUE: One view of the chest was acquired. COMPARISON: [facility], CR, XR CHEST 1V, 11/11/2020, 14:20. FINDINGS: Surgical changes and devices: None. Lungs and pleura: Lungs are clear. No pleural effusions or pneumothorax. Mediastinum: Mediastinal contours appear normal. Heart size is normal. Bones and chest wall: No suspicious bony lesions. Overlying soft tissues appear unremarkable. IMPRESSION: No acute cardiopulmonary process demonstrated radiographically. Dictated by: Valente Hartman M.D. on 12/13/2020 at 16:39 Approved by: Valente Hartman M.D. on 12/13/2020 at 16:39
[2020-12-13 16:58] LABS: Add Manual Diff / Slide Review NO; Basophils Absolute Auto 100 /uL (0-100); Eosinophils Absolute Auto 100 /uL (0-450); Eosinophils Percent Auto 1.3 % (2-4); Hematocrit 39.3 % (41-53); Lymphocytes Absolute Auto 1700 /uL (1100-4500); Lymphocytes Percent Auto 24.3 % (25-40); Mean Corpuscular Hemoglobin 26.4 PG (26-34); Mean Corpuscular Volume 79.9 fL (80-100); Monocytes Absolute Auto 400 /uL (0-900); Monocytes Percent Auto 6.5 % (3-14); Neutrophils Absolute Auto 4600 /uL (1500-7000); Neutrophils Percent Auto 66.9 % (50-75); Platelet Count 349 X10^3/uL (150-400); Red Blood Cell Count 4.92 X10^6/uL (4.5-5.9); Red Cell Distribution Width 14.2 % (11.6-14.8); White Blood Cell Count 6.8 X10^3/uL (4.5-11.0)
[2020-12-13 17:16] LABS: Alanine Aminotransferase 24 IU/L (<50); Albumin 4.3 g/dL (3.5-5.0); Albumin Globulin Ratio 1.4 (1.0-2.8); Alkaline Phosphatase 89 U/L (38-126); Aspartate Aminotransferase 23 IU/L (17-59); BUN Creatinine Ratio 9.9 (6-22); Bilirubin Total 0.4 mg/dL (0.2-1.3); Blood Urea Nitrogen 16 mg/dL (9-20); Calcium 9.1 mg/dL (8.4-10.2); Carbon Dioxide 30 mmol/L (22-32); Chloride 104 mmol/L (98-107); Creatine Kinase 113 U/L (55-170); Estimated Glomerular Filt Rate 45.1 mL/min (>60); Globulin 3.1 g/dL (1.7-4.1); Glucose 113 mg/dL (70-100); HEMOLYSIS < 15 (0-50); Lipase 81 U/L (23-300); Potassium 4.8 mmol/L (3.4-5.1); Sodium 139 mmol/L (137-145); Total Protein 7.4 g/dL (6.3-8.2)
[2020-12-13 17:25] LABS: Troponin I < 0.012 ng/mL (0.01-0.034)
[2020-12-13 17:31] LABS: CKMB % Relative Index 0.8 % (1.5-5.0)
--- NOTE | 2020-12-13 18:14 | ED.CHESTPAIN ---
HPI - Chest Pain <Marlys Coates PA-C - Last Filed: 12/27/20 09:29> General Chief Complaint: Chest Pain Stated Complaint: chest pains for 2 days Time Seen by Provider: 12/13/20 17:57 History of Present Illness HPI narrative: 55-year-old male with a history of angina presents to the ED with 2 days of chest pain. Patient states that his chest pain started yesterday, he took 2 nitroglycerin with some relief. Patient also endorses some shortness of breath which, per the patient, is baseline for him and is unchanged. Patient denies fever, chills, cough, nausea, vomiting, abdominal pain, dysuria, lightheadedness, dizziness, syncope. Patient describes the pain as pressures, tightness. Pain is not alleviated or aggravated by anything. Pain does not radiate. Related Data Home Medications Medication Instructions Recorded Confirmed buspirone 15 mg tablet 15 mg PO BID 08/19/19 10/14/19 hydroxyzine HCl 50 mg tablet 50 mg PO BID 08/19/19 10/14/19 lisinopril 5 mg tablet 10 mg PO DAILY tab 08/19/19 10/14/19 omeprazole BID 08/27/19 10/14/19 Allergies Allergy/AdvReac Type Severity Reaction Status Date / Time codeine [CODEINE] Allergy Unknown Hives Verified 11/11/20 14:05 Review of Systems <Marlys Coates PA-C - Last Filed: 12/27/20 09:29> Constitutional Constitutional: Denies chills, Denies fatigue, Denies fever(s), Denies frequent falls, Denies lethargy and Denies weakness Eyes Eyes: Denies change in vision, Denies eye discharge, Denies irritation and Denies loss of vision ENT Ears, Nose, Mouth, and Throat: Denies change in voice, Denies dizziness, Denies neck pain, Denies sore throat and Denies throat swelling Cardiovascular Cardiovascular: Reports chest pain, Denies irregular heart rhythm, Denies lightheadedness, Denies palpitations, Denies dyspnea, Denies dyspnea on exertion and Denies orthopnea Respiratory Respiratory: Denies cough, Denies dyspnea, Denies dyspnea on exertion and Denies wheezing Gastrointestinal Gastrointestinal: Denies abdominal pain, Denies change in bowel habits, Denies diarrhea, Denies nausea and Denies vomiting Musculoskeletal Musculoskeletal: Denies neck pain and Denies numbness Integumentary/Breasts Skin/Breast: Denies pruritus, Denies erythema, Denies rash and Denies wounds Neurologic Neurologic: Denies behavioral changes, Denies confusion, Denies dizziness, Denies frequent falls, Denies loss of vision, Denies numbness and Denies weakness Psychiatric Psychiatric: Denies anxiety, Denies behavioral changes, Denies confusion, Denies depression, Denies homicidal ideation and Denies suicidal ideation Endocrine Endocrine: Denies fatigue, Denies flushing and Denies palpitations Hematologic/Lymphatic Hematologic/Lymphatic: Denies easy bruising Allergic/Immunologic Allergic/Immunologic: Denies urticaria, Denies throat swelling and Denies wheezing Patient History <Marlys Coates PA-C - Last Filed: 12/27/20 09:29> Medical History Acute appendicitis Diverticulitis Hypertension Shingles Surgical History Hx of appendectomy Family History Mother Hypertension Social History marital status: household members: spouse and children occupational status: previously employed Smoking Status: Former smoker alcohol intake: current substance use type: does not use Smoking Status: Former smoker alcohol intake frequency: holidays/special occasions only Substance Use Type: marijuana Exam <Marlys Coates PA-C - Last Filed: 12/27/20 09:29> Initial Vital Signs Initial Vital Signs: Vital Signs Temperature 97.3 F L 12/13/20 16:42 Pulse Rate 58 L 12/13/20 16:42 Respiratory Rate 16 12/13/20 16:42 Blood Pressure 144/73 H 12/13/20 16:42 Pulse Oximetry 97 12/13/20 16:42 Const General: cooperative HENMT Head: normocephalic and atraumatic Ears: external ears normal and TM's normal bilaterally Nose: external nose normal and No nasal discharge Face and sinus: sinuses nontender, face symmetric, no sinus tenderness and No dry mucous membranes Mouth: oral mucosae normal and moist mucous membranes Teeth and gingiva: dentition normal Throat: tonsils normal and uvula midline Eyes General: appearance normal, both eyes and all related structures Eyelids: eyelids normal Conjunctivae: conjunctivae normal Sclera: sclerae normal Pupils: PERRL EOM: EOM intact bilaterally Neck Neck: normal visual inspection, trachea midline, No lymphadenopathy, No midline deformity and No JVD Lymphatic: No lymphedema Chest Chest: normal inspection of the chest Resp Effort & Inspection: normal respiratory effort, able to speak in complete sentences, no respiratory distress and no use of accessory muscles Auscultation: clear to auscultation bilaterally, no rales, no rhonchi and no wheezes Cardio Rate: regular rate Rhythm: regular rhythm Heart Sounds: no click, no gallops, no murmurs and no rubs Pulses: normal peripheral pulses Other: Negative bilateral leg swelling GI Inspection: non-distended Palpation: soft, no hepatosplenomegaly, No guarding, No pulsatile mass and No tender Auscultation: normal bowel sounds Back/Spine/Pelvis Back: No CVA tenderness Cervical Spine: cervical ROM normal and No pain with cervical ROM Thoracic/Lumbar Spine: thoracic and lumbar spine normal to inspection Skin General: no rashes or lesions noted, No jaundice and No petechiae Neuro General: patient alert, patient oriented x3, gait normal and no focal motor deficits Speech: speech normal Extrem General: full ROM, no clubbing, cyanosis or edema, no pedal edema and no calf tenderness Psych Appearance: well kempt Mental Status: mental status grossly normal Attitude: cooperative Thought Content: normal and suicidality Judgment: judgment good <River Corona DO - Last Filed: 12/31/20 18:54> Initial Vital Signs Initial Vital Signs: Vital Signs Temperature 97.3 F L 12/13/20 16:42 Pulse Rate 58 L 12/13/20 16:42 Respiratory Rate 16 12/13/20 16:42 Blood Pressure 144/73 H 12/13/20 16:42 Pulse Oximetry 97 12/13/20 16:42 Course <Marlys Coates PA-C - Last Filed: 12/27/20 09:29> Course Course Narrative: EKG, CXR negative for acute findings. First troponin negative. Troponin was repeated 3 hours later, which is also negative. Patient discharged home with ED return precautions, cardiology follow-up. Orders Ordered: ED Orders 12/13/20 16:20 XR chest 1V Stat 12/13/20 16:46 EKG-12 Lead Stat 12/13/20 16:48 Complete Blood Count AUTO DIFF Stat Comprehensive Metabolic Panel Stat Lipase Stat Troponin & CK Cardiac Panel Stat 12/13/20 20:00 Trop I [Troponin I] Stat Vital Signs Vital signs: Vital Signs - 8 hr 12/13/20 16:42 12/13/20 18:07 12/13/20 18:08 Temperature 97.3 F L Pulse Rate 58 L 57 L 54 L Respiratory Rate 16 19 20 Blood Pressure 144/73 H 134/74 Pulse Oximetry 97 96 96 <River Corona DO - Last Filed: 12/31/20 18:54> Orders Ordered: ED Orders 12/13/20 16:20 XR chest 1V Stat 12/13/20 16:46 EKG-12 Lead Stat 12/13/20 16:48 Complete Blood Count AUTO DIFF Stat Comprehensive Metabolic Panel Stat Lipase Stat Troponin & CK Cardiac Panel Stat 12/13/20 20:00 Trop I [Troponin I] Stat Vital Signs Vital signs: Vital Signs - 8 hr 12/13/20 16:42 12/13/20 18:07 12/13/20 18:08 Temperature 97.3 F L Pulse Rate 58 L 57 L 54 L Respiratory Rate 16 19 20 Blood Pressure 144/73 H 134/74 Pulse Oximetry 97 96 96 MDM - Chest Pain <Marlys Coates PA-C - Last Filed: 12/27/20 09:29> Lab Data Lab results narrative: Troponin normal Result diagrams: 12/13/20 16:48 12/13/20 16:48 Labs: Lab Results 12/13/20 12/13/20 12/13/20 Range/Units 16:48 16:48 20:00 WBC 6.8 (4.5-11.0) X10^3/uL RBC 4.92 (4.5-5.9) X10^6/uL Hgb 13.0 L (13.5-17.5) g/dL Hct 39.3 L (41-53) % MCV 79.9 L (80-100) fL MCH 26.4 (26-34) PG MCHC 33.0 (30-36) % RDW 14.2 (11.6-14.8) % Plt Count 349 (150-400) X10^3/uL Neut % (Auto) 66.9 (50-75) % Lymph % (Auto) 24.3 L (25-40) % [place] % (Auto) 6.5 (3-14) % Eos % (Auto) 1.3 L (2-4) % Baso % (Auto) 1.0 (0-2) % Neut # (Auto) 4600 (2460-1640) /uL Lymph # (Auto) 1700 (9258-7733) /uL Snyder # (Auto) 400 (0-900) /uL Eos # (Auto) 100 (0-450) /uL Baso # (Auto) 100 (0-100) /uL Sodium 139 (137-145) mmol/L Potassium 4.8 (3.4-5.1) mmol/L Chloride 104 (98-107) mmol/L Carbon Dioxide 30 (22-32) mmol/L BUN 16 (9-20) mg/dL Creatinine 1.61 H (0.66-1.25) mg/dL Estimated GFR 45.1 L (>60) mL/min BUN/Creatinine Ratio 9.9 (6-22) Glucose 113 H (70-100) mg/dL Calcium 9.1 (8.4-10.2) mg/dL Total Bilirubin 0.4 (0.2-1.3) mg/dL AST 23 (17-59) IU/L ALT 24 (<50) IU/L Alkaline Phosphatase 89 (38-126) U/L Total Creatine Kinase 113 (55-170) U/L CK-MB (CK-2) 0.90 (<2.37) ng/mL CK-MB (CK-2) Rel Index 0.8 L (1.5-5.0) % Troponin I < 0.012 < 0.012 (0.01-0.034) ng/mL Total Protein 7.4 (6.3-8.2) g/dL Albumin 4.3 (3.5-5.0) g/dL Globulin 3.1 (1.7-4.1) g/dL Albumin/Globulin Ratio 1.4 (1.0-2.8) Lipase 81 (23-300) U/L ECG Data Interpretation: NSR, no ST-T changes. MDM Narrative Medical decision making narrative: 55-year-old male with a history of angina presents to the ED with 2 days of chest pain. concern for ACS. unlikely pneumonia given symptoms and physical exam. Will order chest x-ray, EKG, labs, troponin. Will reassess. <River Corona DO - Last Filed: 12/31/20 18:54> Lab Data Labs: Lab Results 12/13/20 12/13/20 12/13/20 Range/Units 16:48 16:48 20:00 WBC 6.8 (4.5-11.0) X10^3/uL RBC 4.92 (4.5-5.9) X10^6/uL Hgb 13.0 L (13.5-17.5) g/dL Hct 39.3 L (41-53) % MCV 79.9 L (80-100) fL MCH 26.4 (26-34) PG MCHC 33.0 (30-36) % RDW 14.2 (11.6-14.8) % Plt Count 349 (150-400) X10^3/uL Neut % (Auto) 66.9 (50-75) % Lymph % (Auto) 24.3 L (25-40) % Snyder % (Auto) 6.5 (3-14) % Eos % (Auto) 1.3 L (2-4) % Baso % (Auto) 1.0 (0-2) % Neut # (Auto) 4600 (9953-5987) /uL Lymph # (Auto) 1700 (1868-5612) /uL Snyder # (Auto) 400 (0-900) /uL Eos # (Auto) 100 (0-450) /uL Baso # (Auto) 100 (0-100) /uL Sodium 139 (137-145) mmol/L Potassium 4.8 (3.4-5.1) mmol/L Chloride 104 (98-107) mmol/L Carbon Dioxide 30 (22-32) mmol/L BUN 16 (9-20) mg/dL Creatinine 1.61 H (0.66-1.25) mg/dL Estimated GFR 45.1 L (>60) mL/min BUN/Creatinine Ratio 9.9 (6-22) Glucose 113 H (70-100) mg/dL Calcium 9.1 (8.4-10.2) mg/dL Total Bilirubin 0.4 (0.2-1.3) mg/dL AST 23 (17-59) IU/L ALT 24 (<50) IU/L Alkaline Phosphatase 89 (38-126) U/L Total Creatine Kinase 113 (55-170) U/L CK-MB (CK-2) 0.90 (<2.37) ng/mL CK-MB (CK-2) Rel Index 0.8 L (1.5-5.0) % Troponin I < 0.012 < 0.012 (0.01-0.034) ng/mL Total Protein 7.4 (6.3-8.2) g/dL Albumin 4.3 (3.5-5.0) g/dL Globulin 3.1 (1.7-4.1) g/dL Albumin/Globulin Ratio 1.4 (1.0-2.8) Lipase 81 (23-300) U/L Discharge Plan Departure Patient Disposition: Home Clinical Impression: Chest pain Instructions: DI for Chest Pain Activity Restrictions/Additional Instructions: You were evaluated for chest pain in the ED today. Your chest x-ray, EKG, labs were normal. Please return to the ED if you experience worsening chest pain, shortness of breath. Continue taking your cardiac medications. 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 Prescriptions: No Action lisinopril 5 mg tablet 10 mg PO DAILY RF: 0 hydroxyzine HCl 50 mg tablet 50 mg PO BID RF: 0 buspirone 15 mg tablet 15 mg PO BID RF: 0 omeprazole 20 mg BID RF: 0 Referrals: Mady Kumar MD [Primary Care Provider] -
[2020-12-13 20:36] LABS: Troponin I < 0.012 ng/mL (0.01-0.034)
== END 2020-12-13 20:50 | disposition home or self-care (01) ==
PROVIDERS: Emergency Medicine; Emergency Provider Student in an Organized Health Care Education/Training Program; Family Provider Family Medicine; PCP Family Medicine
DX: R07.9 Chest pain, unspecified (principal)
CPT/HCPCS: 36415; 71045; 80053; 82550; 82553; 83690; 84484; 85025; 93005; 99283; 99284

== ENCOUNTER 2021-01-24 18:44 | Emergency (ER) | payer OTHER, SELFPAY ==
[2018-02-26 12:17] VITALS: BMI 40.7
[2021-01-24] VITALS (13 sets, daily range): BP systolic 105–136; BP diastolic 50–77; PULSE 75–79; RESP 12–24; TEMP 37.2–37.9; O2SAT 92–96; BMI 45.0
[2021-01-24 19:34] LABS: COVID19 -Nasal RAPID Negative (Negative)
--- NOTE | 2021-01-24 19:37 | ED.FEVER ---
HPI - Fever General Chief Complaint: Fever Stated Complaint: Abd pain/chest pain/fever today Time Seen by Provider: 01/24/21 19:36 Source: patient and family Mode of arrival: Wheelchair Limitations: no limitations History of Present Illness HPI Narrative: This is a 55-year-old male comes emergency department who states while he was out crabbing today he initially developed hiccups, fever and in some chest discomfort and abdominal pain. He has 5 pain is upper abdominal and into back. He states this is not atypical for crabbing. But that the fever, hiccups chest discomfort is. He denies any shortness of breath. No diaphoresis. He feels generally unwell. Did have some nausea and vomiting and states some small flecks of blood in his emesis. He denies any diarrhea constipation. No dysuria, urgency or frequency. No testicular pain. Is on aspirin, lisinopril, statin, buspirone, hydroxyzine daily. He states he was told he had a clogged artery but they were going to let the aspirin cleared out. He has never had a heart catheterization or cardiac stent. He has had an appendectomy. He is a former smoker. Occasional alcohol none recently. Occasional THC, no other illicit drugs. Patient is vaccinated for coronavirus. Related Data Home Medications Medication Instructions Recorded Confirmed buspirone 15 mg tablet 15 mg PO BID 08/19/19 10/14/19 hydroxyzine HCl 50 mg tablet 50 mg PO BID 08/19/19 10/14/19 lisinopril 5 mg tablet 10 mg PO DAILY tab 08/19/19 10/14/19 omeprazole BID 08/27/19 10/14/19 Allergies Allergy/AdvReac Type Severity Reaction Status Date / Time codeine [CODEINE] Allergy Unknown Hives Verified 11/11/20 14:05 Review of Systems Review of Systems ROS Unobtainable: All systems reviewed & are unremarkable except as noted in HPI and below Patient History Medical History Acute appendicitis Diverticulitis Hypertension Shingles Surgical History Hx of appendectomy Family History Mother Hypertension Social History marital status: household members: spouse and children occupational status: previously employed Smoking Status: Former smoker alcohol intake: current substance use type: does not use Smoking Status: Former smoker alcohol intake frequency: holidays/special occasions only Substance Use Type: marijuana Exam Narrative Exam Narrative: GEN: Obese male, alert and oriented x 3, patient appears to be in mild distress. HEENT: Atraumatic, pupils are equal round reactive to light, extraocular movements are intact, nares are clear, TMs are clear with no fluid, there is no conjunctival pallor. Throat is clear without any exudates, erythema, tonsillar enlargement or uvular deviation HEART: Regular rate and rhythm without murmur, clicks, rubs. Pulses are equal in upper and lower extremities LUNGS:Lungs clear to auscultation, no wheezes, rales, crackles, chest moves symmetrically, no tachypnea accessory muscle use. ABD:bowel sounds normal, soft, non-tender, no guarding, rebound, rigidity, no masses noted, no hepatosplenomegaly, nondistended. :No CVA tenderness. MSCL: Non-tender, no muscle atrophy, muscles strength 5/5 upper and lower extremities, full range of motion, normal gait NEURO:CN 2-12 intact, sensation normal. SKIN: No rash, erythema or other skin changes. Initial Vital Signs Initial Vital Signs: Vital Signs Pulse Oximetry 93 01/24/21 19:02 Course Orders Ordered: Discontinued Medications Acetaminophen (Acetaminophen 325 Mg Tablet) 975 mg PO NOW ONE Stop: 01/24/21 19:48 Last Admin: 01/24/21 20:00 Dose: 975 mg Documented by: KARIN Dexamethasone (Dexamethasone 10 Mg/Ml Vial) 6 mg IV NOW ONE Stop: 01/24/21 20:42 Last Admin: 01/24/21 20:45 Dose: Not Given Documented by: RAMILA Sodium Chloride (Normal Saline 0.9%) 1,000 mls @ 1,000 mls/hr IV BOLUS ONE Stop: 01/24/21 20:45 Last Infusion: 01/24/21 21:14 Dose: 0 mls/hr Documented by: Admin: 01/24/21 19:59 Dose: 1,000 mls/hr Documented by: KARIN Remdesivir 200 mg/ Sodium (Chloride) 250 mls @ 250 mls/hr IV NOW ONE Stop: 01/24/21 21:40 Last Admin: 01/24/21 20:45 Dose: Not Given Documented by: RAMILA Ondansetron HCl (Ondansetron 4 Mg/2 Ml Inj) 4 mg IV NOW ONE Stop: 01/24/21 19:47 Last Admin: 01/24/21 20:00 Dose: 4 mg Documented by: KARIN Ondansetron HCl (Ondansetron 4 Mg Odt Prepack) 1 bottle MISC SEEINSTR ONE Stop: 01/24/21 21:32 Last Admin: 01/24/21 21:34 Dose: 1 bottle Documented by: RAMILA Vital Signs Vital signs: Vital Signs - 8 hr 01/24/21 19:02 01/24/21 19:26 01/24/21 19:27 Temperature Pulse Rate 79 76 Respiratory Rate 22 16 Blood Pressure 132/77 Pulse Oximetry 93 94 96 01/24/21 19:30 01/24/21 20:00 01/24/21 20:01 Temperature 99.7 F H Pulse Rate 76 77 77 Respiratory Rate 20 24 22 Blood Pressure 134/74 121/59 L Pulse Oximetry 94 92 93 01/24/21 20:10 01/24/21 20:30 01/24/21 21:00 Temperature 100.2 F H Pulse Rate 75 76 Respiratory Rate 21 12 Blood Pressure 121/62 Pulse Oximetry 95 95 01/24/21 21:01 01/24/21 21:07 Temperature 98.9 F Pulse Rate 77 Respiratory Rate 20 Blood Pressure 136/50 L Pulse Oximetry 93 MDM - Fever Lab Data Result diagrams: 01/24/21 18:20 01/24/21 18:20 Labs: Lab Results 01/24/21 01/24/21 01/24/21 Range/Units 18:20 18:20 18:20 WBC 13.9 H (4.5-11.0) X10^3/uL RBC 4.56 (4.5-5.9) X10^6/uL Hgb 12.0 L (13.5-17.5) g/dL Hct 36.3 L (41-53) % MCV 79.4 L (80-100) fL MCH 26.4 (26-34) PG MCHC 33.2 (30-36) % RDW 14.1 (11.6-14.8) % Plt Count 389 (150-400) X10^3/uL Neut % (Auto) 81.4 H (50-75) % Lymph % (Auto) 12.5 L (25-40) % Randall % (Auto) 5.5 (3-14) % Eos % (Auto) 0.2 L (2-4) % Baso % (Auto) 0.4 (0-2) % Neut # (Auto) 15125 H (2119-0750) /uL Lymph # (Auto) 1700 (4188-4823) /uL Randall # (Auto) 800 (0-900) /uL Eos # (Auto) 0 (0-450) /uL Baso # (Auto) 100 (0-100) /uL Sodium 133 L (137-145) mmol/L Potassium 4.2 (3.4-5.1) mmol/L Chloride 94 L (98-107) mmol/L Carbon Dioxide 32 (22-32) mmol/L BUN 15 (9-20) mg/dL Creatinine 1.52 H (0.66-1.25) mg/dL Estimated GFR 48.2 L (>60) mL/min BUN/Creatinine Ratio 9.9 (6-22) Glucose 112 H (70-100) mg/dL Lactate 0.7 (0.7-2.1) mmol/L Calcium 8.7 (8.4-10.2) mg/dL Total Bilirubin 0.6 (0.2-1.3) mg/dL AST 33 (17-59) IU/L ALT 44 (<50) IU/L Alkaline Phosphatase 112 (38-126) U/L Total Creatine Kinase 253 H (55-170) U/L CK-MB (CK-2) 2.02 (<2.37) ng/mL CK-MB (CK-2) Rel Index 0.8 L (1.5-5.0) % Troponin I < 0.012 (0.01-0.034) ng/mL NT-Pro-B Natriuret Pep 259 H (<125) pg/mL Total Protein 7.8 (6.3-8.2) g/dL Albumin 4.4 (3.5-5.0) g/dL Globulin 3.4 (1.7-4.1) g/dL Albumin/Globulin Ratio 1.3 (1.0-2.8) Lipase (23-300) U/L Procalcitonin 0.08 (<0.5) ng/mL Urine Color Urine Appearance Urine pH (4.5-8.0) Ur Specific [place] (1.000-1.035) Urine Protein (Negative) Urine Glucose (UA) (Negative) g/dL Urine Ketones (NEGATIVE) Urine Occult Blood (Negative) Urine Nitrate (Negative) Urine Bilirubin (NEGATIVE) Urine Urobilinogen (0.2) E.U./dL Ur Leukocyte Esterase (NEGATIVE) Urine RBC (0-5/HPF) Urine WBC (0-5/HPF) Urine Bacteria (None) Ur Culture Indicated? SARS-CoV-2 (PCR) (Negative) 01/24/21 01/24/21 01/24/21 Range/Units 18:20 19:11 19:50 WBC (4.5-11.0) X10^3/uL RBC (4.5-5.9) X10^6/uL Hgb (13.5-17.5) g/dL Hct (41-53) % MCV (80-100) fL MCH (26-34) PG MCHC (30-36) % RDW (11.6-14.8) % Plt Count (150-400) X10^3/uL Neut % (Auto) (50-75) % Lymph % (Auto) (25-40) % Randall % (Auto) (3-14) % Eos % (Auto) (2-4) % Baso % (Auto) (0-2) % Neut # (Auto) (5602-4321) /uL Lymph # (Auto) (2069-8395) /uL Randall # (Auto) (0-900) /uL Eos # (Auto) (0-450) /uL Baso # (Auto) (0-100) /uL Sodium (137-145) mmol/L Potassium (3.4-5.1) mmol/L Chloride (98-107) mmol/L Carbon Dioxide (22-32) mmol/L BUN (9-20) mg/dL Creatinine (0.66-1.25) mg/dL Estimated GFR (>60) mL/min BUN/Creatinine Ratio (6-22) Glucose (70-100) mg/dL Lactate (0.7-2.1) mmol/L Calcium (8.4-10.2) mg/dL Total Bilirubin (0.2-1.3) mg/dL AST (17-59) IU/L ALT (<50) IU/L Alkaline Phosphatase (38-126) U/L Total Creatine Kinase (55-170) U/L CK-MB (CK-2) (<2.37) ng/mL CK-MB (CK-2) Rel Index (1.5-5.0) % Troponin I (0.01-0.034) ng/mL NT-Pro-B Natriuret Pep (<125) pg/mL Total Protein (6.3-8.2) g/dL Albumin (3.5-5.0) g/dL Globulin (1.7-4.1) g/dL Albumin/Globulin Ratio (1.0-2.8) Lipase 47 (23-300) U/L Procalcitonin (<0.5) ng/mL Urine Color Yellow Urine Appearance Clear Urine pH 5.5 (4.5-8.0) Ur Specific [place] 1.010 (1.000-1.035) Urine Protein Negative (Negative) Urine Glucose (UA) Negative (Negative) g/dL Urine Ketones Negative (NEGATIVE) Urine Occult Blood Trace-lysed (Negative) Urine Nitrate Negative (Negative) Urine Bilirubin Negative (NEGATIVE) Urine Urobilinogen 0.2 (0.2) E.U./dL Ur Leukocyte Esterase Negative (NEGATIVE) Urine RBC 0-1/hpf (0-5/HPF) Urine WBC 0-1/hpf (0-5/HPF) Urine Bacteria Few (2-10) H (None) Ur Culture Indicated? Cult not indicated SARS-CoV-2 (PCR) Negative (Negative) Imaging Data Chest x-ray: Radiologist's Impression: [address] [address] XRay Report Signed Patient: Elder Bailey MR#: [id number] : 1965 Acct:[id number] Age/Sex: 55 / M Date of Service: 01/24/21 Loc: ED Accession Number: [id number] ?? Procedure: XR chest 1V Ordering Provider: Stefania Aquino D.O. PROCEDURE:? XR CHEST 1V ? INDICATIONS:? fever, vomited ? TECHNIQUE:? One view of the chest was acquired.? ? COMPARISON:? [facility], CR, XR CHEST 1V, 12/13/2020, 16:17. ? FINDINGS:? ? Surgical changes and devices:? None.? ? Lungs and pleura:? Lungs are clear.? No pleural effusions or pneumothorax.? ? Mediastinum:? Mediastinal contours appear normal.? Heart size is normal.? ? Bones and chest wall:? No suspicious bony lesions.? Overlying soft tissues appear unremarkable.? ? IMPRESSION:? No acute disease. ? ? Dictated by: Sid Orozco M.D. on 01/24/2021 at 21:19 ? ? Approved by: Sid Orozco M.D. on 01/24/2021 at 21:19? ECG Data Attestation: I personally reviewed and interpreted this ECG as follows: Prior ECG tracings: available for review Interpretation: Sinus rhythm rate of 77 ME 146 QRS of 96 and QTC of 400, RSR in 3. No acute ST changes appreciated. Patient has prior EKG from 12/13/2020 which appears similar. MDM Narrative Medical decision making narrative: 55-year-old male with history of cardiac disease who had mild fever chest and abdominal pain 1 or 2 episodes of nausea and vomiting today. Patient feels much better after Zofran and Tylenol here in the department. He would like to return home. We discussed possibly COVID although he is vaccinated he is very early in symptoms so he should be retested in several days. We also discussed getting a CT of his abdomen pelvis but patient defers at this time. We discussed if he is worsening or has persistent vomiting he should return for more workup. Blood cultures are pending. Discharge Plan Departure Patient Disposition: Home Clinical Impression: Nausea & vomiting, Hiccups Instructions: Nausea and Vomiting-Adult Activity Restrictions/Additional Instructions: Follow-up with your physician if your symptoms have not completely resolved over the next couple days. You may take Zofran 1 tablet every 4 hours as needed. Tylenol up to a 1000 mg every 8 hours and or ibuprofen up to 600 mg every 6 as needed for fever or muscle aches. If you continue to feel unwell but are not having persistent vomiting I would have your COVID swab rechecked in the next 2-3 days. In some individuals very early in the symptoms they will have a false negative although your COVID swab today is negative. Please return for persistent fevers, new or worsening chest pain, abdominal, back or flank pain, persistent vomiting, black or bloody stools, new shortness of breath, lightheadedness or passing out or other new or concerning symptoms. Prescriptions: No Action lisinopril 5 mg tablet 10 mg PO DAILY 0RF hydroxyzine HCl 50 mg tablet 50 mg PO BID 0RF buspirone 15 mg tablet 15 mg PO BID 0RF omeprazole 20 mg BID 0RF Referrals: Mady Kumar MD [Primary Care Provider] -
--- NOTE | 2021-01-24 19:45 | DI.RAD.S_ITS ---
PROCEDURE: XR CHEST 1V INDICATIONS: fever, vomited TECHNIQUE: One view of the chest was acquired. COMPARISON: [facility], CR, XR CHEST 1V, 12/13/2020, 16:17. FINDINGS: Surgical changes and devices: None. Lungs and pleura: Lungs are clear. No pleural effusions or pneumothorax. Mediastinum: Mediastinal contours appear normal. Heart size is normal. Bones and chest wall: No suspicious bony lesions. Overlying soft tissues appear unremarkable. IMPRESSION: No acute disease. Dictated by: Sid Orozco M.D. on 01/24/2021 at 21:19 Approved by: Sid Orozco M.D. on 01/24/2021 at 21:19
[2021-01-24 19:56] LABS: Add Manual Diff / Slide Review NO; Basophils Absolute Auto 100 /uL (0-100); Basophils Percent Auto 0.4 % (0-2); Eosinophils Absolute Auto 0 /uL (0-450); Eosinophils Percent Auto 0.2 % (2-4); Hematocrit 36.3 % (41-53); Lymphocytes Absolute Auto 1700 /uL (1100-4500); Lymphocytes Percent Auto 12.5 % (25-40); Mean Corpuscular HGB Conc 33.2 % (30-36); Mean Corpuscular Hemoglobin 26.4 PG (26-34); Mean Corpuscular Volume 79.4 fL (80-100); Monocytes Absolute Auto 800 /uL (0-900); Monocytes Percent Auto 5.5 % (3-14); Neutrophils Absolute Auto 11300 /uL (1500-7000); Neutrophils Percent Auto 81.4 % (50-75); Platelet Count 389 X10^3/uL (150-400); Red Blood Cell Count 4.56 X10^6/uL (4.5-5.9); Red Cell Distribution Width 14.1 % (11.6-14.8); White Blood Cell Count 13.9 X10^3/uL (4.5-11.0)
[2021-01-24 19:57] LABS: Appearance Urine UA CLEAR; Bilirubin Urine UA NEGATIVE (NEGATIVE); Color Urine UA YELLOW; Glucose Urine UA NEGATIVE (Negative); Ketones Urine UA NEGATIVE (NEGATIVE); Leukocyte Esterase Urine UA NEGATIVE (NEGATIVE); Nitrite Urine UA NEGATIVE (Negative); Occult Blood Urine UA TRACE-LYSED (Negative); Protein Urine UA NEGATIVE (Negative); Urobilinogen Urine UA 0.2 E.U./dL (0.2); pH Urine UA 5.5 (4.5-8.0)
[2021-01-24] MEDS: SODIUM CHLORIDE 0.9% 1,000 ML 1000 ML IV (19:59)
[2021-01-24] MEDS: ACETAMINOPHEN 325 MG TABLET 975 MG PO (20:00)
[2021-01-24] MEDS: ONDANSETRON 4 MG/2 ML INJ IV (20:00)
[2021-01-24 20:01] LABS: Lactate (Lactic Acid) 0.7 mmol/L (0.7-2.1)
[2021-01-24 20:04] LABS: Bacteria Urine Few (2-10); Culture Indicated Urine Cult Not Indicated; RBC Urine 0-1/HPF (0-5/HPF); WBC Urine 0-1/HPF (0-5/HPF)
[2021-01-24 20:04] LABS: Alanine Aminotransferase 44 IU/L (<50); Albumin 4.4 g/dL (3.5-5.0); Albumin Globulin Ratio 1.3 (1.0-2.8); Alkaline Phosphatase 112 U/L (38-126); Aspartate Aminotransferase 33 IU/L (17-59); BUN Creatinine Ratio 9.9 (6-22); Bilirubin Total 0.6 mg/dL (0.2-1.3); Blood Urea Nitrogen 15 mg/dL (9-20); Calcium 8.7 mg/dL (8.4-10.2); Carbon Dioxide 32 mmol/L (22-32); Chloride 94 mmol/L (98-107); Creatine Kinase 253 U/L (55-170); Estimated Glomerular Filt Rate 48.2 mL/min (>60); Globulin 3.4 g/dL (1.7-4.1); Glucose 112 mg/dL (70-100); HEMOLYSIS < 15 (0-50); Lipase 47 U/L (23-300); Potassium 4.2 mmol/L (3.4-5.1); Sodium 133 mmol/L (137-145); Total Protein 7.8 g/dL (6.3-8.2)
[2021-01-24 20:15] LABS: NT-proBNP (BNP-Adult 18+) 259 pg/mL (<125); Troponin I < 0.012 ng/mL (0.01-0.034)
[2021-01-24 20:19] LABS: CKMB % Relative Index 0.8 % (1.5-5.0); Creatine Kinase MB 2.02 ng/mL (<2.37); Procalcitonin 0.08 ng/mL (<0.5)
[2021-01-24] MEDS: ONDANSETRON 4 MG ODT PREPACK 1 BOTTLE MISC (21:34)
== END 2021-01-24 21:36 | disposition home or self-care (01) ==
PROVIDERS: Emergency Medicine; Emergency Provider Emergency Medicine; Family Provider Family Medicine; PCP Family Medicine
DX: R11.2 Nausea with vomiting, unspecified (principal); R06.6 Hiccough; R07.9 Chest pain, unspecified; Z20.822 Contact with and (suspected) exposure to COVID-19
CPT/HCPCS: 36415; 71045; 80053; 81001; 82550; 82553; 83605; 83690; 83880; 84145; 84484; 85025; 87040; 87635; 93005; 96361; 96374; 99284; C9803; J2405

== ENCOUNTER 2021-04-13 03:31 | Emergency (ER) | payer OTHER, SELFPAY ==
[2018-02-26 12:17] VITALS: BMI 40.7
--- NOTE | 2021-04-13 03:37 | DI.RAD.S_ITS ---
PROCEDURE: XR CHEST 1V INDICATIONS: chest pain TECHNIQUE: One view of the chest was acquired. COMPARISON: [facility], CR, XR CHEST 1V, 12/13/2020, 16:17. [facility], CR, XR CHEST 1V, 01/24/2021, 20:05. FINDINGS: Surgical changes and devices: None. Lungs and pleura: Lungs are clear. No pleural effusions or pneumothorax. Mediastinum: Mediastinal contours appear normal. Heart size is normal. Bones and chest wall: No suspicious bony lesions. Overlying soft tissues appear unremarkable. IMPRESSION: No acute cardiopulmonary disease. No significant discrepancy with the night worker radiology preliminary report. Dictated by: Dom Naranjo M.D. on 04/13/2021 at 8:03 Approved by: Dom Naranjo M.D. on 04/13/2021 at 8:04
[2021-04-13 03:40] VITALS: BP 150/80; PULSE 70; RESP 16; TEMP 36.6; O2SAT 98
[2021-04-13] MEDS: ASPIRIN 81 MG CHEW TAB 324 MG PO (04:08)
[2021-04-13 04:09] VITALS: BP 130/70; PULSE 72; RESP 18; O2SAT 99
[2021-04-13 04:14] LABS: Add Manual Diff / Slide Review NO; Basophils Absolute Auto 100 /uL (0-100); Basophils Percent Auto 0.9 % (0-2); Eosinophils Absolute Auto 300 /uL (0-450); Eosinophils Percent Auto 3.7 % (2-4); Hematocrit 36.1 % (41-53); Hemoglobin 12.4 g/dL (13.5-17.5); Lymphocytes Absolute Auto 2800 /uL (1100-4500); Lymphocytes Percent Auto 37.2 % (25-40); Mean Corpuscular HGB Conc 34.2 % (30-36); Mean Corpuscular Hemoglobin 26.9 PG (26-34); Mean Corpuscular Volume 78.7 fL (80-100); Monocytes Absolute Auto 700 /uL (0-900); Monocytes Percent Auto 8.8 % (3-14); Neutrophils Absolute Auto 3800 /uL (1500-7000); Neutrophils Percent Auto 49.4 % (50-75); Platelet Count 372 X10^3/uL (150-400); Red Blood Cell Count 4.59 X10^6/uL (4.5-5.9); Red Cell Distribution Width 13.9 % (11.6-14.8); White Blood Cell Count 7.6 X10^3/uL (4.5-11.0)
[2021-04-13 04:19] LABS: Alanine Aminotransferase 24 IU/L (<50); Albumin 3.9 g/dL (3.5-5.0); Albumin Globulin Ratio 1.3 (1.0-2.8); Alkaline Phosphatase 83 U/L (38-126); Aspartate Aminotransferase 23 IU/L (17-59); BUN Creatinine Ratio 14.4 (6-22); Bilirubin Total 0.3 mg/dL (0.2-1.3); Blood Urea Nitrogen 15 mg/dL (9-20); Calcium 8.3 mg/dL (8.4-10.2); Carbon Dioxide 29 mmol/L (22-32); Chloride 104 mmol/L (98-107); Creatine Kinase 116 U/L (55-170); Estimated Glomerular Filt Rate > 60.0 mL/min (>60); Glucose 126 mg/dL (70-100); HEMOLYSIS < 15 (0-50); Lipase 94 U/L (23-300); Potassium 3.7 mmol/L (3.4-5.1); Sodium 135 mmol/L (137-145); Total Protein 6.9 g/dL (6.3-8.2)
--- NOTE | 2021-04-13 04:25 | ED.CHESTPAIN ---
HPI - Chest Pain General Chief Complaint: Chest Pain Stated Complaint: tight chest pain, anxiety, headaches Time Seen by Provider: 04/13/21 03:37 Source: patient Mode of arrival: Wheelchair Limitations: no limitations History of Present Illness HPI narrative: 55-year-old male former smoker with history of hypertension, GERD and anxiety presents with his in the chief complaint of right-sided anterior chest pain for the past 24-36 hours. He states that he had been pulling grab pots in the pain started later that day. It is a sharp and stabbing pain that is worse with a deep breath, worse with palpation and worse with use of his right arm. He denies any exertional component to his symptoms. He denies any cardiac equivalent such as dizziness, weakness, lightheadedness, unexplained nausea, vomiting or diaphoresis. He denies any unexplained or significant fatigue or exercise intolerance. He denies recent travel, injury or prior clot. Related Data Home Medications Medication Instructions Recorded Confirmed buspirone 15 mg tablet 15 mg PO BID 08/19/19 10/14/19 hydroxyzine HCl 50 mg tablet 50 mg PO BID 08/19/19 10/14/19 lisinopril 5 mg tablet 10 mg PO DAILY tab 08/19/19 10/14/19 omeprazole BID 08/27/19 10/14/19 Previous Rx's Medication Instructions Recorded ketorolac 10 mg tablet 10 mg PO Q6H PRN #14 tab 04/13/21 lidocaine 5 % topical patch 1 patch TOP DAILY #15 each 04/13/21 (Lidoderm) Allergies Allergy/AdvReac Type Severity Reaction Status Date / Time codeine [CODEINE] Allergy Unknown Hives Verified 11/11/20 14:05 Review of Systems Review of Systems Narrative: GENERAL: Denies chills, fatigue, malaise, fever, sweats. HEENT: Denies sinus pain, ear pain, sore throat, difficulty swallowing, dizziness. RESPIRATORY: Denies dyspnea, cough, wheezing, hemoptysis, sputum. CARDIOVASCULAR: See HPI GASTROINTESTINAL: Denies nausea, vomiting, abdominal pain, diarrhea, constipation, melena. : Denies dysuria, frequency, incontinence, hematuria, urinary retention. MUSCULOSKELETAL: See HPI SKIN: Denies rash, skin lesions, or other NEUROLOGIC: Denies weakness, headache, numbness, change in speech, confusion, seizures, incoordination. PSYCHIATRIC: No concerning psychosocial issues. 12 point review of systems is negative except for those stated above Patient History Medical History Acute appendicitis Diverticulitis Hypertension Shingles Surgical History Hx of appendectomy Family History Mother Hypertension Social History marital status: household members: spouse and children occupational status: previously employed Smoking Status: Former smoker alcohol intake: current substance use type: does not use Smoking Status: Former smoker alcohol intake frequency: holidays/special occasions only Substance Use Type: marijuana Exam Narrative Exam Narrative: GENERAL: [55 year old patient appears stated age. Well-developed patient, in mild distress. Perhaps a bit anxious HEAD: Atraumatic. Normocephalic. EYES: Pupils equal round and reactive. Extraocular motions intact. No scleral icterus. No injection or drainage. ENT: Nose without bleeding, purulent drainage. Throat without erythema, tonsillar hypertrophy or exudate. Airway patent. NECK: Trachea midline. Non tender CARDIOVASCULAR: Regular rate and rhythm without murmurs, gallops, or rubs. Right anterior chest is tender to palpation, easily reducible, he states this is the pain that brought him in. No erythema, warmth, induration or fluctuance. No rash or subcu emphysema RESPIRATORY: Clear to auscultation. Breath sounds equal bilaterally. No wheezes, rales, or rhonchi. GASTROINTESTINAL: Abdomen soft, non-tender, nondistended. EXTREMITIES: No edema or joint tenderness. BACK: Nontender without deformity or crepitance. No flank tenderness. NEURO: AOx3. SKIN: No rash or erythema of visible areas Initial Vital Signs Initial Vital Signs: Vital Signs Temperature 98 F 04/13/21 03:40 Pulse Rate 70 04/13/21 03:40 Respiratory Rate 16 04/13/21 03:40 Blood Pressure 150/80 H 04/13/21 03:40 Pulse Oximetry 98 04/13/21 03:40 Course Orders Ordered: ED Orders 04/13/21 03:37 XR chest 1V Stat EKG-12 Lead Stat 04/13/21 04:00 Complete Blood Count AUTO DIFF Stat Comprehensive Metabolic Panel Stat Lipase Stat Troponin & CK Cardiac Panel Stat Sodium Chloride (Normal Saline 0.9%) 1,000 mls @ 150 mls/hr IV CONT AYLA Last Admin: 04/13/21 04:01 Dose: Not Given Documented by: RITU Discontinued Medications Aspirin (Aspirin 81 Mg Chew Tab) 324 mg PO NOW ONE Stop: 04/13/21 03:38 Last Admin: 04/13/21 04:08 Dose: 324 mg Documented by: RITU Vital Signs Vital signs: Vital Signs - 8 hr 04/13/21 03:40 04/13/21 04:09 Temperature 98 F Pulse Rate 70 72 Respiratory Rate 16 18 Blood Pressure 150/80 H 130/70 Pulse Oximetry 98 99 MDM - Chest Pain Lab Data Attestation: I reviewed the patient's lab results. Result diagrams: 04/13/21 04:00 04/13/21 04:00 Labs: Lab Results 04/13/21 04/13/21 Range/Units 04:00 04:00 WBC 7.6 (4.5-11.0) X10^3/uL RBC 4.59 (4.5-5.9) X10^6/uL Hgb 12.4 L (13.5-17.5) g/dL Hct 36.1 L (41-53) % MCV 78.7 L (80-100) fL MCH 26.9 (26-34) PG MCHC 34.2 (30-36) % RDW 13.9 (11.6-14.8) % Plt Count 372 (150-400) X10^3/uL Neut % (Auto) 49.4 L (50-75) % Lymph % (Auto) 37.2 (25-40) % [place] % (Auto) 8.8 (3-14) % Eos % (Auto) 3.7 (2-4) % Baso % (Auto) 0.9 (0-2) % Neut # (Auto) 3800 (8417-0961) /uL Lymph # (Auto) 2800 (9967-1508) /uL [place] # (Auto) 700 (0-900) /uL Eos # (Auto) 300 (0-450) /uL Baso # (Auto) 100 (0-100) /uL Sodium 135 L (137-145) mmol/L Potassium 3.7 (3.4-5.1) mmol/L Chloride 104 (98-107) mmol/L Carbon Dioxide 29 (22-32) mmol/L BUN 15 (9-20) mg/dL Creatinine 1.04 (0.66-1.25) mg/dL Estimated GFR > 60.0 (>60) mL/min BUN/Creatinine Ratio 14.4 (6-22) Glucose 126 H (70-100) mg/dL Calcium 8.3 L (8.4-10.2) mg/dL Total Bilirubin 0.3 (0.2-1.3) mg/dL AST 23 (17-59) IU/L ALT 24 (<50) IU/L Alkaline Phosphatase 83 (38-126) U/L Total Creatine Kinase 116 (55-170) U/L Total Protein 6.9 (6.3-8.2) g/dL Albumin 3.9 (3.5-5.0) g/dL Globulin 3.0 (1.7-4.1) g/dL Albumin/Globulin Ratio 1.3 (1.0-2.8) Lipase 94 (23-300) U/L Imaging Data Chest x-ray: Radiologist's Impression: No acute findings ECG Data Interpretation: Normal sinus rhythm, rate of 67 with an incomplete right bundle-branch block. No ST segmental elevations or depressions. No ectopy. This is consistent with multiple prior EKGs going back at least 1 year MDM Narrative Medical decision making narrative: Multiple causes of chest pain considered including MS, PE, pneumothorax, pneumonia, aortic dissection, and pleurisy. Patient reports no radiation, no diaphoresis, no provocation with exertion, and no vomiting Patient's symptoms improved over duration of stay with above-stated therapies. Findings and discharge diagnosis discussed with patient/family followed by verbalization of understanding Return precautions discussed with patient/family whom verbalize understanding. Discharge Plan Departure Patient Disposition: Home Clinical Impression: Acute chest wall pain Instructions: DI for Atypical Chest Pain Activity Restrictions/Additional Instructions: *You have been diagnosed with [chest wall pain, most likely from inflammation and muscle spasm. Your history and physical exam are very reassuring. Labs and EKG as well as chest x-ray are also reassuring. There is no evidence of a significant or life-threatening diagnosis such as heart attack, pneumonia or blood clot. *What to do: *Please continue to take your regular medications as directed. [x ] New medication prescriptions sent to your pharmacy: [ [facility]] [ ] New medication written as a paper prescription [ ] No new medications given *Please follow up with your primary care provider in 2-3 days, call for an appointment. Let them know you were seen in the Emergency Department and that we ask that you be seen in follow up. We will electronically transmit a record of today's note if your PCP is in our system *If you do not have a primary care provider please contact the [facility] Resource line at [phone]. They will ask some questions about your medical history and help get you set up with a doctor in the community. *Return to Emergency Department if you should have any new, worsening or concerning symptoms, such as [fever greater than 101 F, shaking chills, worsening pain, persistent vomiting or other bothersome symptoms] Prescriptions: New ketorolac 10 mg tablet 10 mg PO Q6H PRN (Reason: pain) Qty: 14 0RF lidocaine [Lidoderm] 5 % adhesive patch,medicated 1 patch TOP DAILY Qty: 15 0RF Rx Instructions: leave on most painful area for 12 hrs No Action lisinopril 5 mg tablet 10 mg PO DAILY 0RF hydroxyzine HCl 50 mg tablet 50 mg PO BID 0RF buspirone 15 mg tablet 15 mg PO BID 0RF omeprazole 20 mg BID 0RF Referrals: Mady Kumar MD [Primary Care Provider] -
[2021-04-13 04:31] LABS: Troponin I < 0.012 ng/mL (0.01-0.034)
[2021-04-13 04:34] LABS: Creatine Kinase MB 1.17 ng/mL (<2.37)
[2021-04-13] MEDS: LIDOCAINE PATCH 1 EACH ADH..PATCH TOP (04:43)
[2021-04-13] MEDS: KETOROLAC 30 MG/ML VIAL IM (04:43)
[2021-04-13] MEDS: CYCLOBENZAPRINE 10 MG PREPACK 1 BOTTLE MISC (04:43)
[2021-04-13 04:58] VITALS: BP 129/69; PULSE 76; RESP 18; TEMP 36.6; O2SAT 99
== END 2021-04-13 05:10 | disposition home or self-care (01) ==
PROVIDERS: Emergency Provider Emergency Medicine; Family Provider Family Medicine; PCP Family Medicine
DX: R07.89 Other chest pain (principal); Z87.891 Personal history of nicotine dependence
CPT/HCPCS: 36415; 71045; 80053; 82550; 82553; 83690; 84484; 85025; 93005; 96372; 99284; J1885

== ENCOUNTER 2021-05-21 09:55 | Emergency (ER) | payer OTHER, SELFPAY ==
[2018-02-26 12:17] VITALS: BMI 40.7
[2021-05-21] VITALS (8 sets, daily range): BP systolic 129–158; BP diastolic 72–88; PULSE 64–73; RESP 7–23; TEMP 36.4; O2SAT 96–99; BMI 46.9
--- NOTE | 2021-05-21 10:16 | DI.RAD.S_ITS ---
PROCEDURE: XR CHEST 1V INDICATIONS: chest pain TECHNIQUE: One view of the chest was acquired. COMPARISON: [facility], CT, CT ABDOMEN PELVIS W CON, 03/21/2020, 4:19. [facility], CR, XR CHEST 1V, 04/13/2021, 3:41. [facility], CR, XR CHEST 1V, 01/24/2021, 20:05. FINDINGS: Surgical changes and devices: None. Lungs and pleura: Lungs are clear. No pleural effusions or pneumothorax. Mediastinum: Mediastinal contours appear unchanged. Heart size is normal. Bones and chest wall: No suspicious bony lesions. Overlying soft tissues appear unremarkable. IMPRESSION: No acute cardiopulmonary abnormality. Dictated by: Edwin Hedrick M.D. on 05/21/2021 at 9:31 Approved by: Edwin Hedrick M.D. on 05/21/2021 at 9:32
[2021-05-21 10:26] LABS: Add Manual Diff / Slide Review NO; Basophils Absolute Auto 100 /uL (0-100); Basophils Percent Auto 0.9 % (0-2); Eosinophils Absolute Auto 300 /uL (0-450); Eosinophils Percent Auto 3.9 % (2-4); Hematocrit 40.5 % (41-53); Hemoglobin 13.3 g/dL (13.5-17.5); Lymphocytes Absolute Auto 2700 /uL (1100-4500); Lymphocytes Percent Auto 39.8 % (25-40); Mean Corpuscular HGB Conc 32.8 % (30-36); Mean Corpuscular Hemoglobin 26.1 PG (26-34); Mean Corpuscular Volume 79.7 fL (80-100); Monocytes Absolute Auto 500 /uL (0-900); Monocytes Percent Auto 7.6 % (3-14); Neutrophils Absolute Auto 3200 /uL (1500-7000); Neutrophils Percent Auto 47.8 % (50-75); Platelet Count 375 X10^3/uL (150-400); Red Blood Cell Count 5.08 X10^6/uL (4.5-5.9); Red Cell Distribution Width 13.9 % (11.6-14.8); White Blood Cell Count 6.7 X10^3/uL (4.5-11.0)
[2021-05-21 10:32] LABS: Alanine Aminotransferase 44 IU/L (<50); Albumin 4.3 g/dL (3.5-5.0); Albumin Globulin Ratio 1.2 (1.0-2.8); Alkaline Phosphatase 101 U/L (38-126); Aspartate Aminotransferase 28 IU/L (17-59); BUN Creatinine Ratio 11.9 (6-22); Bilirubin Total 0.3 mg/dL (0.2-1.3); Blood Urea Nitrogen 13 mg/dL (9-20); Calcium 8.6 mg/dL (8.4-10.2); Carbon Dioxide 27 mmol/L (22-32); Chloride 102 mmol/L (98-107); Creatine Kinase 91 U/L (55-170); Estimated Glomerular Filt Rate > 60.0 mL/min (>60); Globulin 3.6 g/dL (1.7-4.1); Glucose 123 mg/dL (70-100); HEMOLYSIS < 15 (0-50); Lipase 87 U/L (23-300); Magnesium 1.9 mg/dL (1.6-2.3); Potassium 3.9 mmol/L (3.4-5.1); Sodium 136 mmol/L (137-145); Total Protein 7.9 g/dL (6.3-8.2)
--- NOTE | 2021-05-21 10:42 | ED.CHESTPAIN ---
HPI - Chest Pain General Chief Complaint: Chest Pain Stated Complaint: Chest pains Time Seen by Provider: 05/21/21 10:21 Source: patient Mode of arrival: Ambulatory Limitations: no limitations History of Present Illness HPI narrative: The patient presents with onset of left anterior chest pain this started about 730 this morning. He was sitting at home, having coffee at that time. Chart review reveals multiple visits here with similar complaints. It is noted his anxiety, in addition to hypertension and hyperlipidemia. He took a single dose of sublingual nitroglycerin without relief. He has multiple visits here, there is no evidence of acute coronary syndrome. He was transferred from here to [facility] November 2020. Echo revealed normal left ventricle with EF 55-60%. There was no significant valvular pathology. However a stress test was significant for [id number] reversible ischemic changes at the base of the mid inferior wall. Medical management was recommended by the zinc miner blasting, with consideration of left-sided catheterization. Patient declined catheterization. He has been off his medications, prescription ran out. He restarted medications yesterday. He has no recent fever, URI symptoms, or cough. He has no orthopnea or dyspnea at rest. Related Data Home Medications Medication Instructions Recorded Confirmed buspirone 15 mg tablet 15 mg PO BID 08/19/19 10/14/19 hydroxyzine HCl 50 mg tablet 50 mg PO BID 08/19/19 10/14/19 lisinopril 5 mg tablet 10 mg PO DAILY tab 08/19/19 10/14/19 omeprazole BID 08/27/19 10/14/19 Previous Rx's Medication Instructions Recorded ketorolac 10 mg tablet 10 mg PO Q6H PRN #14 tab 04/13/21 lidocaine 5 % topical patch 1 patch TOP DAILY #15 each 04/13/21 (Lidoderm) Allergies Allergy/AdvReac Type Severity Reaction Status Date / Time codeine [CODEINE] Allergy Unknown Hives Verified 11/11/20 14:05 Review of Systems Constitutional Constitutional: Denies chills, Denies fatigue, Denies fever(s) and Denies headache(s) Eyes Eyes: Denies exophthalmos and Denies change in vision ENT Ears, Nose, Mouth, and Throat: Denies vertigo, Denies dizziness, Denies headache(s) and Denies sinus pain Cardiovascular Cardiovascular: Reports as per HPI, Reports chest pain, Denies syncope and Denies dyspnea on exertion Respiratory Respiratory: Denies chest congestion, Denies cough, Denies hemoptysis, Denies dyspnea on exertion and Denies wheezing Gastrointestinal Gastrointestinal: Denies abdominal pain and Denies nausea Genitourinary Comments: No urinary symptoms. Musculoskeletal Comments: No lower extremity pain or edema. Integumentary/Breasts Skin/Breast: Denies lesions and Denies rash Neurologic Neurologic: Denies vertigo, Denies dizziness, Denies syncope and Denies headache(s) Psychiatric Psychiatric: Denies anxiety Endocrine Endocrine: Denies fatigue Hematologic/Lymphatic On Anticoagulants: No Allergic/Immunologic Allergic/Immunologic: Denies wheezing Patient History Medical History (Updated 05/21/21 @ 13:58 by Gt Saldivar MD) Acute appendicitis Coronary artery disease Diverticulitis Hypertension Shingles Surgical History Hx of appendectomy Family History Mother Hypertension Social History marital status: household members: spouse and children occupational status: previously employed Smoking Status: Former smoker alcohol intake: current substance use type: does not use Smoking Status: Former smoker alcohol intake frequency: holidays/special occasions only Substance Use Type: marijuana Exam Initial Vital Signs Initial Vital Signs: Vital Signs Temperature 97.5 F L 05/21/21 10:00 Pulse Rate 68 05/21/21 10:00 Respiratory Rate 18 05/21/21 10:00 Blood Pressure 158/82 H 05/21/21 10:00 Pulse Oximetry 99 05/21/21 10:00 Const General: cooperative, healthy appearing and comfortable Limitations: mental status not altered [facility] Head: normal to inspection, normocephalic and atraumatic Face and sinus: normal facial exam Mouth: oral mucosae normal Eyes General: appearance normal, both eyes and all related structures Neck Neck: No JVD Chest Other: palpable tenderness to the left upper lateral chest wall. Resp Auscultation: clear to auscultation bilaterally Cardio Rate: regular rate Rhythm: regular rhythm Heart Sounds: S1 normal, S2 normal, no murmurs and no rubs Pulses: radial pulses present GI Other: Obese, soft, and nontender. Normal bowel sounds. Back/Spine/Pelvis Back: normal to inspection and No back tenderness Skin General: no rashes or lesions noted Neuro General: patient alert, patient awake, patient oriented x3 and no focal motor deficits Extrem General: normal to inspection, full ROM, no pedal edema and No no calf tenderness Psych Appearance: grossly normal Course Course Course Narrative: The patient received baby aspirin. Toradol helped his chest pain. The pain appears to be musculoskeletal, although history indicates underlying CAD. There is no acute changes on EKG, cardiac enzymes are normal. It is noted is been off medications, the restarted them yesterday. He is now pain-free. I discussed his recent hospitalization at [facility], I strongly recommend he talk to his PCM and see Cardiology follow-up. He should return here go to a nearby ER if pain or dyspnea return. Orders Ordered: ED Orders 05/21/21 10:12 Complete Blood Count AUTO DIFF Stat Comprehensive Metabolic Panel Stat Lipase Stat Magnesium Stat Troponin & CK Cardiac Panel Stat 05/21/21 10:16 XR chest 1V Stat EKG-12 Lead Stat Discontinued Medications Aspirin (Aspirin 81 Mg Chew Tab) 324 mg PO NOW ONE Stop: 05/21/21 10:42 Last Admin: 05/21/21 11:27 Dose: 324 mg Documented by: SILVER Ketorolac Tromethamine (Ketorolac 30 Mg/Ml Vial) 30 mg IV NOW ONE Stop: 05/21/21 11:41 Last Admin: 05/21/21 11:48 Dose: 30 mg Documented by: SILVER Metoprolol Tartrate (Metoprolol Ir 25 Mg Tablet) 25 mg PO NOW ONE Stop: 05/21/21 10:42 Last Admin: 05/21/21 11:41 Dose: Not Given Documented by: SILVER Morphine Sulfate (Morphine 4 Mg/Ml Inj) 4 mg IV NOW ONE Stop: 05/21/21 10:42 Last Admin: 05/21/21 11:41 Dose: Not Given Documented by: SILVER Pantoprazole Sodium (Pantoprazole 40 Mg Vial) 40 mg IV NOW ONE Stop: 05/21/21 10:42 Last Admin: 05/21/21 11:48 Dose: 40 mg Documented by: SILVER Vital Signs Vital signs: Vital Signs - 8 hr 05/21/21 10:00 05/21/21 11:52 05/21/21 12:00 Temperature 97.5 F L Pulse Rate 68 73 69 Respiratory Rate 18 17 7 L Blood Pressure 158/82 H 149/88 H Pulse Oximetry 99 98 97 05/21/21 12:30 05/21/21 12:31 05/21/21 13:00 Temperature Pulse Rate 69 69 64 Respiratory Rate 18 21 16 Blood Pressure 129/72 143/76 H Pulse Oximetry 96 96 98 05/21/21 13:30 05/21/21 13:31 Temperature Pulse Rate 68 68 Respiratory Rate 23 19 Blood Pressure 141/75 H Pulse Oximetry 96 97 MDM - Chest Pain Lab Data Result diagrams: 05/21/21 10:12 05/21/21 10:12 Labs: Lab Results 05/21/21 05/21/21 Range/Units 10:12 10:12 WBC 6.7 (4.5-11.0) X10^3/uL RBC 5.08 (4.5-5.9) X10^6/uL Hgb 13.3 L (13.5-17.5) g/dL Hct 40.5 L (41-53) % MCV 79.7 L (80-100) fL MCH 26.1 (26-34) PG MCHC 32.8 (30-36) % RDW 13.9 (11.6-14.8) % Plt Count 375 (150-400) X10^3/uL Neut % (Auto) 47.8 L (50-75) % Lymph % (Auto) 39.8 (25-40) % [place] % (Auto) 7.6 (3-14) % Eos % (Auto) 3.9 (2-4) % Baso % (Auto) 0.9 (0-2) % Neut # (Auto) 3200 (7070-2716) /uL Lymph # (Auto) 2700 (3221-4643) /uL [place] # (Auto) 500 (0-900) /uL Eos # (Auto) 300 (0-450) /uL Baso # (Auto) 100 (0-100) /uL Sodium 136 L (137-145) mmol/L Potassium 3.9 (3.4-5.1) mmol/L Chloride 102 (98-107) mmol/L Carbon Dioxide 27 (22-32) mmol/L BUN 13 (9-20) mg/dL Creatinine 1.09 (0.66-1.25) mg/dL Estimated GFR > 60.0 (>60) mL/min BUN/Creatinine Ratio 11.9 (6-22) Glucose 123 H (70-100) mg/dL Calcium 8.6 (8.4-10.2) mg/dL Magnesium 1.9 (1.6-2.3) mg/dL Total Bilirubin 0.3 (0.2-1.3) mg/dL AST 28 (17-59) IU/L ALT 44 (<50) IU/L Alkaline Phosphatase 101 (38-126) U/L Total Creatine Kinase 91 (55-170) U/L CK-MB (CK-2) TNP CK-MB (CK-2) Rel Index TNP Troponin I < 0.012 (0.01-0.034) ng/mL Total Protein 7.9 (6.3-8.2) g/dL Albumin 4.3 (3.5-5.0) g/dL Globulin 3.6 (1.7-4.1) g/dL Albumin/Globulin Ratio 1.2 (1.0-2.8) Lipase 87 (23-300) U/L Imaging Data Chest x-ray: Radiologist's Impression: No acute cardiopulmonary process. ECG Data Attestation: I personally reviewed and interpreted this ECG as follows: ( Normal sinus rhythm rate 70 beats per minute. Incomplete RBBB. No ectopy. No acute ST T wave changes.) Discharge Plan Departure Patient Disposition: Home Clinical Impression: Chest pain Instructions: DI for Angina Activity Restrictions/Additional Instructions: Your records from [facility] November 2020 indicate a normal echocardiogram, but an abnormal stress test. The zinc miner blasting recommend medication management, (your current medications), and consider a heart catheterization if symptoms persist. You are apparently having recurrent symptoms. I understand you been off her medications, I am glad her back on them. You have no evidence of heart attack. I recommend you talk to her PCM and arrange cardiology consultation as soon as possible. If you develop persistent chest pain or difficulty breathing you should return to a nearby ER. Prescriptions: No Action lisinopril 5 mg tablet 10 mg PO DAILY 0RF hydroxyzine HCl 50 mg tablet 50 mg PO BID 0RF buspirone 15 mg tablet 15 mg PO BID 0RF omeprazole 20 mg BID 0RF ketorolac 10 mg tablet 10 mg PO Q6H PRN (Reason: pain) Qty: 14 0RF lidocaine [Lidoderm] 5 % adhesive patch,medicated 1 patch TOP DAILY Qty: 15 0RF Rx Instructions: leave on most painful area for 12 hrs Referrals: Mady Kumar MD [Primary Care Provider] -
[2021-05-21 10:44] LABS: Troponin I < 0.012 ng/mL (0.01-0.034)
[2021-05-21] MEDS: ASPIRIN 81 MG CHEW TAB 324 MG PO (11:27)
[2021-05-21] MEDS: KETOROLAC 30 MG/ML VIAL IV (11:48)
[2021-05-21] MEDS: PANTOPRAZOLE 40 MG VIAL IV (11:48)
== END 2021-05-21 14:03 | disposition home or self-care (01) ==
PROVIDERS: Emergency Provider Emergency Medicine; Family Provider Family Medicine; PCP Family Medicine
DX: R07.9 Chest pain, unspecified (principal); I25.10 Atherosclerotic heart disease of native coronary artery without angina pectoris; Z87.891 Personal history of nicotine dependence
CPT/HCPCS: 36415; 71045; 80053; 82550; 83690; 83735; 84484; 85025; 93005; 93010; 96374; 96375; 99284; C9113; J1885; J2270

== ENCOUNTER 2021-06-22 01:28 | Emergency (ER) | payer OTHER, SELFPAY ==
[2018-02-26 12:17] VITALS: BMI 40.7
[2021-06-22 01:33] VITALS: BP 123/64; PULSE 67; RESP 22; TEMP 36.3; O2SAT 95; BMI 43.4
--- NOTE | 2021-06-22 01:41 | DI.RAD.S_ITS ---
PROCEDURE: XR CHEST 1V INDICATIONS: chest pain TECHNIQUE: One view of the chest was acquired. COMPARISON: [facility], CR, XR CHEST 1V, 05/21/2021, 10:18. FINDINGS: Surgical changes and devices: None. Lungs and pleura: Lungs are clear. No pleural effusions or pneumothorax. Mediastinum: Mediastinal contours appear normal. Heart size is normal. Bones and chest wall: No suspicious bony lesions. Overlying soft tissues appear unremarkable. IMPRESSION: Stable radiographic evaluation of the chest without acute cardiopulmonary abnormalities or focal airspace disease. Dictated by: Guille Bernstein M.D. on 06/22/2021 at 1:55 Approved by: Guille Bernstein M.D. on 06/22/2021 at 1:55
--- NOTE | 2021-06-22 01:53 | ED.CHESTPAIN ---
HPI - Chest Pain General Chief Complaint: Chest Pain Stated Complaint: CHEST PAINS Time Seen by Provider: 06/22/21 01:38 Source: patient Mode of arrival: Wheelchair Limitations: no limitations History of Present Illness HPI narrative: Patient is a 55-year-old male. Is here in the emergency department for evaluation of left-sided chest discomfort. He states that it started earlier today when he was sitting at work. He was seen here in the emergency department approximately 1 month ago for which he states is the same pain that he has currently. He has been seen multiple times since the beginning of the year in even at the end of last year for chest discomfort. He does have a history of hypertension and hyperlipidemia anxiety and possible sleep apnea. He was sent from this facility the over to [facility] back in the beginning of November of last year where he had a fairly extensive cardiovascular workup which included a unremarkable echocardiogram however did have [id number] reversible ischemia in the basal inferior wall. Cardiology evaluated the patient. According to the notes from that visit and according to the patient there was discussion about medical management verses left heart catheterization. At the time the decision was made for medical management. When he was here in this emergency department 1 month ago he had been out of all of his medications however he has since refill those medicines and has been taking them as directed. He has not followed up with Cardiology since he was evaluated at the end of last year despite the recommendation that he do so after his last visit here in the ER. He states that his left-sided chest discomfort is worse when he stretches and when he touches the area and when he takes a deep breath. He did take some nitroglycerin prior to arrival but he is unsure as to whether not this has helped the symptoms are not. Related Data Home Medications Medication Instructions Recorded Confirmed buspirone 15 mg tablet 15 mg PO BID 08/19/19 10/14/19 hydroxyzine HCl 50 mg tablet 50 mg PO BID 08/19/19 10/14/19 lisinopril 5 mg tablet 10 mg PO DAILY tab 08/19/19 10/14/19 omeprazole BID 08/27/19 10/14/19 Previous Rx's Medication Instructions Recorded ketorolac 10 mg tablet 10 mg PO Q6H PRN #14 tab 04/13/21 lidocaine 5 % topical patch 1 patch TOP DAILY #15 each 04/13/21 (Lidoderm) Allergies Allergy/AdvReac Type Severity Reaction Status Date / Time codeine [CODEINE] Allergy Unknown Hives Verified 06/22/21 01:33 Review of Systems Review of Systems ROS Unobtainable: All systems reviewed & are unremarkable except as noted in HPI and below Patient History Medical History Acute appendicitis Coronary artery disease Diverticulitis Hypertension Shingles Surgical History Hx of appendectomy Family History Mother Hypertension Social History marital status: household members: spouse and children occupational status: previously employed Smoking Status: Former smoker alcohol intake: current substance use type: does not use Smoking Status: Former smoker alcohol intake frequency: holidays/special occasions only Substance Use Type: marijuana Exam Initial Vital Signs Initial Vital Signs: Vital Signs Temperature 97.4 F L 06/22/21 01:33 Pulse Rate 67 06/22/21 01:33 Respiratory Rate 22 06/22/21 01:33 Blood Pressure 123/64 06/22/21 01:33 Pulse Oximetry 95 06/22/21 01:33 Const General: cooperative, comfortable and well developed HENMT Head: normal to inspection and normocephalic Chest Other: Chest discomfort with palpation left lower anterior chest wall Resp Effort & Inspection: normal respiratory effort Auscultation: clear to auscultation bilaterally Cardio Rate: regular rate Rhythm: regular rhythm GI Inspection: non-distended Palpation: soft and No tender Skin General: no rashes or lesions noted Neuro General: patient alert, patient awake, patient oriented x3 and moves all extremities Extrem General: normal to inspection and capillary refill normal Psych Appearance: grossly normal and well kempt Course Orders Ordered: ED Orders 06/22/21 01:41 XR chest 1V Stat EKG-12 Lead Stat 06/22/21 01:45 Complete Blood Count AUTO DIFF Stat Comprehensive Metabolic Panel Stat Lipase Stat Troponin & CK Cardiac Panel Stat 06/22/21 03:30 Troponin I Stat Vital Signs Vital signs: Vital Signs - 8 hr 06/22/21 01:33 06/22/21 03:00 Temperature 97.4 F L Pulse Rate 67 76 Respiratory Rate 22 18 Blood Pressure 123/64 125/78 Pulse Oximetry 95 98 MDM - Chest Pain Medical Records Data Attestation: I reviewed the patient's medical records. Lab Data Attestation: I reviewed the patient's lab results. Result diagrams: 06/22/21 01:45 06/22/21 01:45 Labs: Lab Results 06/22/21 06/22/21 06/22/21 Range/Units 01:45 01:45 03:30 WBC 5.4 (4.5-11.0) X10^3/uL RBC 4.84 (4.5-5.9) X10^6/uL Hgb 12.4 L (13.5-17.5) g/dL Hct 38.1 L (41-53) % MCV 78.8 L (80-100) fL MCH 25.7 L (26-34) PG MCHC 32.6 (30-36) % RDW 13.6 (11.6-14.8) % Plt Count 349 (150-400) X10^3/uL Neut % (Auto) 38.5 L (50-75) % Lymph % (Auto) 44.1 H (25-40) % [place] % (Auto) 8.2 (3-14) % Eos % (Auto) 8.1 H (2-4) % Baso % (Auto) 1.1 (0-2) % Neut # (Auto) 2100 (6232-3821) /uL Lymph # (Auto) 2400 (0034-0521) /uL [place] # (Auto) 400 (0-900) /uL Eos # (Auto) 400 (0-450) /uL Baso # (Auto) 100 (0-100) /uL Sodium 137 (137-145) mmol/L Potassium 4.1 (3.4-5.1) mmol/L Chloride 101 (98-107) mmol/L Carbon Dioxide 31 (22-32) mmol/L BUN 15 (9-20) mg/dL Creatinine 1.21 (0.66-1.25) mg/dL Estimated GFR > 60 (>60) mL/min BUN/Creatinine Ratio 12.4 (6-22) Glucose 120 H (70-100) mg/dL Calcium 8.1 L (8.4-10.2) mg/dL Total Bilirubin 0.3 (0.2-1.3) mg/dL AST 30 (17-59) IU/L ALT 33 (<50) IU/L Alkaline Phosphatase 99 (38-126) U/L Total Creatine Kinase 181 H (55-170) U/L CK-MB (CK-2) 1.46 (<2.37) ng/mL CK-MB (CK-2) Rel Index 0.8 L (1.5-5.0) % Troponin I < 0.012 < 0.012 (0.01-0.034) ng/mL Total Protein 7.5 (6.3-8.2) g/dL Albumin 4.2 (3.5-5.0) g/dL Globulin 3.3 (1.7-4.1) g/dL Albumin/Globulin Ratio 1.3 (1.0-2.8) Lipase 94 (23-300) U/L Imaging Data Chest x-ray: Radiologist's Impression: [address] [address] XRay Report Signed Patient: Elder Bailey MR#: [id number] : 1965 Acct:[id number] Age/Sex: 55 / M Date of Service: 06/22/21 Loc: ED Accession Number: [id number] ?? Procedure: XR chest 1V Ordering Provider: Ron Fuchs D.O. PROCEDURE:? XR CHEST 1V ? INDICATIONS:? chest pain ? TECHNIQUE:? One view of the chest was acquired.? ? COMPARISON:? [facility], , XR CHEST 1V, 05/21/2021, 10:18. ? FINDINGS:? ? Surgical changes and devices:? None.? ? Lungs and pleura:? Lungs are clear.? No pleural effusions or pneumothorax.? ? Mediastinum:? Mediastinal contours appear normal.? Heart size is normal.? ? Bones and chest wall:? No suspicious bony lesions.? Overlying soft tissues appear unremarkable.? ? IMPRESSION:? Stable radiographic evaluation of the chest without acute cardiopulmonary abnormalities or focal airspace disease. ? ? ? Dictated by: Guille Bernstein M.D. on 06/22/2021 at 1:55 ? ? Approved by: Guille Bernstein M.D. on 06/22/2021 at 1:55?? ECG Data Attestation: I personally reviewed and interpreted this ECG as follows: Interpretation: Sinus rhythm Ventricular rate is 65 Normal axis Normal QRS Normal QTC No ST T wave changes MDM Narrative Medical decision making narrative: Patient has been here in the emergency department multiple times over the past several weeks/months for left-sided chest discomfort. He has known coronary artery disease and has been evaluated by Cardiology was some discussion about needing a heart catheterization. He is currently on his medications as directed. He has not followed up with cardiology since he was admitted at the end of last year there was discussion about medical management versus catheterization. The discomfort that brought him in this evening is reproducible with palpation to the left side of his chest. It seems to be similar as his prior presentations over the past several months. His chest x-ray is unremarkable. EKG is unremarkable. Troponins negative x2. We contacted [facility] and [facility] which are the to [facility] as to this hospital and they have no cardiac bed availability. Had a discussion with the patient regarding options. We discussed may potentially contacting facilities further way to arrange for transfer so that the patient could undergo further cardiovascular risk stratification to include left heart catheterization given the prior recommendations from the end of last year. We also discussed that the patient could follow-up with his primary doctor and also be given contact information with regard to local offset printing operator that he could have a catheterization set up as an outpatient. Discussed risks benefits of each of these options. After this discussion the patient stated that he did not want to be transferred further away. He stated that he would be happy to follow up as a outpatient did have a catheterization done as an outpatient. Given his workup here to include negative troponins and chest x-ray and reproducible pain in the fact that he has had multiple symptoms very similar to this over the past several months following up as an outpatient is certainly reasonable. I do believe he has capacity to make these decisions. He was given strict return precautions. He expressed understanding and agreement. Discharge Plan Departure Patient Disposition: Home Clinical Impression: Atypical chest pain Instructions: DI for Atypical Chest Pain Activity Restrictions/Additional Instructions: I do recommend that you continue to take all of your medications as directed. Given the recurrence of your symptoms over the past several months it is important that you follow-up with your primary doctor and also Cardiology to discuss further testing to include a cardiac catheterization. You are being provided a phone number for a local offset printing operator that you can follow-up with. This was the individual that evaluated you in you were an inpatient in November of last year. Return to the emergency department for any new or worsening symptoms. Prescriptions: No Action lisinopril 5 mg tablet 10 mg PO DAILY 0RF hydroxyzine HCl 50 mg tablet 50 mg PO BID 0RF buspirone 15 mg tablet 15 mg PO BID 0RF omeprazole 20 mg BID 0RF ketorolac 10 mg tablet 10 mg PO Q6H PRN (Reason: pain) Qty: 14 0RF lidocaine [Lidoderm] 5 % adhesive patch,medicated 1 patch TOP DAILY Qty: 15 0RF Rx Instructions: leave on most painful area for 12 hrs Referrals: Mady Kumar MD [Primary Care Provider] - Ginny Carcamo MD [Physician] -
[2021-06-22 02:09] LABS: Alanine Aminotransferase 33 IU/L (<50); Albumin 4.2 g/dL (3.5-5.0); Albumin Globulin Ratio 1.3 (1.0-2.8); Alkaline Phosphatase 99 U/L (38-126); Aspartate Aminotransferase 30 IU/L (17-59); BUN Creatinine Ratio 12.4 (6-22); Bilirubin Total 0.3 mg/dL (0.2-1.3); Blood Urea Nitrogen 15 mg/dL (9-20); Calcium 8.1 mg/dL (8.4-10.2); Carbon Dioxide 31 mmol/L (22-32); Chloride 101 mmol/L (98-107); Creatine Kinase 181 U/L (55-170); Estimated Glomerular Filt Rate > 60 mL/min (>60); Globulin 3.3 g/dL (1.7-4.1); Glucose 120 mg/dL (70-100); HEMOLYSIS < 15 (0-50); Lipase 94 U/L (23-300); Potassium 4.1 mmol/L (3.4-5.1); Sodium 137 mmol/L (137-145); Total Protein 7.5 g/dL (6.3-8.2)
[2021-06-22 02:10] LABS: Add Manual Diff / Slide Review NO; Basophils Absolute Auto 100 /uL (0-100); Basophils Percent Auto 1.1 % (0-2); Eosinophils Absolute Auto 400 /uL (0-450); Eosinophils Percent Auto 8.1 % (2-4); Hematocrit 38.1 % (41-53); Hemoglobin 12.4 g/dL (13.5-17.5); Lymphocytes Absolute Auto 2400 /uL (1100-4500); Lymphocytes Percent Auto 44.1 % (25-40); Mean Corpuscular HGB Conc 32.6 % (30-36); Mean Corpuscular Hemoglobin 25.7 PG (26-34); Mean Corpuscular Volume 78.8 fL (80-100); Monocytes Absolute Auto 400 /uL (0-900); Monocytes Percent Auto 8.2 % (3-14); Neutrophils Absolute Auto 2100 /uL (1500-7000); Neutrophils Percent Auto 38.5 % (50-75); Platelet Count 349 X10^3/uL (150-400); Red Blood Cell Count 4.84 X10^6/uL (4.5-5.9); Red Cell Distribution Width 13.6 % (11.6-14.8); White Blood Cell Count 5.4 X10^3/uL (4.5-11.0)
[2021-06-22 02:21] LABS: Troponin I < 0.012 ng/mL (0.01-0.034)
[2021-06-22 02:24] LABS: CKMB % Relative Index 0.8 % (1.5-5.0); Creatine Kinase MB 1.46 ng/mL (<2.37)
[2021-06-22 03:00] VITALS: BP 125/78; PULSE 76; RESP 18; O2SAT 98
--- NOTE | 2021-06-22 03:20 | PC.NURSE ---
stated his c/p was better,just a little sore now he said.
[2021-06-22 03:58] LABS: Troponin I < 0.012 ng/mL (0.01-0.034)
[2021-06-22 04:15] VITALS: BP 129/72; PULSE 72; RESP 18; O2SAT 99
== END 2021-06-22 04:25 | disposition home or self-care (01) ==
PROVIDERS: Emergency Provider Emergency Medicine; Family Provider Family Medicine; PCP Family Medicine
DX: R07.9 Chest pain, unspecified (principal); I25.10 Atherosclerotic heart disease of native coronary artery without angina pectoris; I10 Essential (primary) hypertension; Z87.891 Personal history of nicotine dependence
CPT/HCPCS: 36415; 71045; 80053; 82550; 82553; 83690; 84484; 85025; 93005; 93010; 99283; 99284

== ENCOUNTER 2021-09-28 17:21 | Emergency (ER) | payer OTHER, SELFPAY ==
[2018-02-26 12:17] VITALS: BMI 40.7
[2021-09-28] VITALS (17 sets, daily range): BP systolic 126–165; BP diastolic 75–96; PULSE 57–81; RESP 13–21; TEMP 37; O2SAT 94–99; BMI 44.3
--- NOTE | 2021-09-28 17:31 | DI.RAD.S_ITS ---
PROCEDURE: XR CHEST 1V INDICATIONS: chest pain TECHNIQUE: One view of the chest was acquired. COMPARISON: [facility], CR, XR CHEST 1V, 06/22/2021, 1:40. FINDINGS: Surgical changes and devices: None. Lungs and pleura: Lungs are clear. No pleural effusions or pneumothorax. Mediastinum: Mediastinal contours appear normal. Heart size is normal. Bones and chest wall: No suspicious bony lesions. Overlying soft tissues appear unremarkable. IMPRESSION: No acute cardiopulmonary pathology. Dictated by: Brandyn Bettencourt M.D. on 09/28/2021 at 18:03 Approved by: Brandyn Bettencourt M.D. on 09/28/2021 at 18:03
[2021-09-28 17:51] LABS: Add Manual Diff / Slide Review NO; Basophils Absolute Auto 0 /uL (0-100); Basophils Percent Auto 0.8 % (0-2); Eosinophils Absolute Auto 100 /uL (0-450); Eosinophils Percent Auto 1.1 % (2-4); Hematocrit 38.1 % (41-53); Lymphocytes Absolute Auto 1600 /uL (1100-4500); Lymphocytes Percent Auto 25.6 % (25-40); Mean Corpuscular HGB Conc 34.1 % (30-36); Mean Corpuscular Hemoglobin 26.7 PG (26-34); Mean Corpuscular Volume 78.2 fL (80-100); Monocytes Absolute Auto 400 /uL (0-900); Monocytes Percent Auto 5.8 % (3-14); Neutrophils Absolute Auto 4300 /uL (1500-7000); Neutrophils Percent Auto 66.7 % (50-75); Platelet Count 365 X10^3/uL (150-400); Red Blood Cell Count 4.87 X10^6/uL (4.5-5.9); Red Cell Distribution Width 14.2 % (11.6-14.8); White Blood Cell Count 6.4 X10^3/uL (4.5-11.0)
[2021-09-28] MEDS: NITROGLYCERIN 0.4 MG SL TAB SL ×3 (17:59→18:38)
[2021-09-28] MEDS: ASPIRIN 81 MG CHEW TAB 324 MG PO (17:59)
[2021-09-28 18:08] LABS: Alanine Aminotransferase 37 IU/L (<50); Albumin 4.3 g/dL (3.5-5.0); Albumin Globulin Ratio 1.3 (1.0-2.8); Alkaline Phosphatase 122 U/L (38-126); Aspartate Aminotransferase 28 IU/L (17-59); BUN Creatinine Ratio 12.5 (6-22); Bilirubin Total 0.3 mg/dL (0.2-1.3); Blood Urea Nitrogen 13 mg/dL (9-20); Calcium 8.6 mg/dL (8.4-10.2); Carbon Dioxide 32 mmol/L (22-32); Chloride 101 mmol/L (98-107); Creatine Kinase 125 U/L (55-170); Estimated Glomerular Filt Rate > 60 mL/min (>60); Globulin 3.2 g/dL (1.7-4.1); Glucose 119 mg/dL (70-100); HEMOLYSIS < 15 (0-50); Lipase 75 U/L (23-300); Potassium 4.4 mmol/L (3.4-5.1); Sodium 135 mmol/L (137-145); Total Protein 7.5 g/dL (6.3-8.2)
[2021-09-28 18:19] LABS: Troponin I < 0.012 ng/mL (0.01-0.034)
[2021-09-28 18:23] LABS: CKMB % Relative Index 0.7 % (1.5-5.0); Creatine Kinase MB 0.92 ng/mL (<2.37)
[2021-09-28 18:25] LABS: COVID19 -Nasal RAPID Negative (Negative)
[2021-09-28 18:51] LABS: NT-proBNP (BNP-Adult 18+) < 11 pg/mL (<125)
--- NOTE | 2021-09-28 19:16 | ED_ITS ---
HPI - Chest Pain <River Corona DO - Last Filed: 10/01/21 00:27> General Chief Complaint: Chest Pain Stated Complaint: chest pain, light headed Time Seen by Provider: 09/28/21 17:54 Source: patient Mode of arrival: Ambulatory Limitations: no limitations History of Present Illness HPI narrative: 55-year-old male former smoker with history of hypertension, GERD, and suspected coronary artery disease presents with a chief complaint of worsening exertional dyspnea, fatigue and chest pain over the past few weeks. He states that over the past few days his symptoms have become more intense and have lasted longer. Along with the above-stated symptoms he becomes nauseated and diaphoretic with exertion and these symptoms eventually improve with rest. At its most intense he has retrosternal chest pain that is about a 6/10, on his arrival here today his pain was a 4/10 initially. He denies any fever or chills. He is had no change in his medications. He was given a nitro on his arrival that improved his pain 1st 2 or 3 and then to a 2. Per the patient's own report he has been told he needs a heart catheterization Related Data Home Medications Medication Instructions Recorded Confirmed buspirone 15 mg tablet 15 mg PO BID 08/19/19 10/14/19 hydroxyzine HCl 50 mg tablet 50 mg PO BID 08/19/19 10/14/19 lisinopril 5 mg tablet 10 mg PO DAILY 08/19/19 10/14/19 omeprazole BID 08/27/19 10/14/19 Previous Rx's Medication Instructions Recorded ketorolac 10 mg tablet 10 mg PO Q6H PRN pain #14 tabs 04/13/21 lidocaine 5 % topical patch 1 patch topical DAILY #15 ea 04/13/21 (Lidoderm) Allergies Allergy/AdvReac Type Severity Reaction Status Date / Time codeine [CODEINE] Allergy Unknown Hives Verified 09/28/21 17:32 Review of Systems <DO Roby Lambert Last Filed: 10/01/21 00:27> Review of Systems Narrative: GENERAL: Denies chills, fatigue, malaise, fever, sweats. HEENT: Denies sinus pain, ear pain, sore throat, difficulty swallowing, dizziness. RESPIRATORY: Denies dyspnea, cough, wheezing, hemoptysis, sputum. CARDIOVASCULAR: Denies chest pain, palpitations, orthopnea, edema, GASTROINTESTINAL: Denies nausea, vomiting, abdominal pain, diarrhea, constipation, melena. : Denies dysuria, frequency, incontinence, hematuria, urinary retention. MUSCULOSKELETAL: denies weakness, joint pain, or bony pain SKIN: Denies rash, skin lesions, or other NEUROLOGIC: Denies weakness, headache, numbness, change in speech, confusion, seizures, incoordination. PSYCHIATRIC: No concerning psychosocial issues. 12 point review of systems is negative except for those stated above Patient History <River Corona DO - Last Filed: 10/01/21 00:27> Medical History Acute appendicitis Coronary artery disease Diverticulitis Hypertension Shingles Surgical History Hx of appendectomy Family History Mother Hypertension Social History marital status: household members: spouse and children occupational status: previously employed Smoking Status: Former smoker alcohol intake: current substance use type: does not use Smoking Status: Former smoker alcohol intake frequency: holidays/special occasions only Substance Use Type: marijuana Exam <River Corona DO - Last Filed: 10/01/21 00:27> Narrative Exam Narrative: GENERAL: [55] year old patient appears stated age. Well-developed patient, in mild distress. HEAD: Atraumatic. Normocephalic. EYES: Pupils equal round and reactive. Extraocular motions intact. No scleral icterus. No injection or drainage. ENT: Nose without bleeding, purulent drainage. Throat without erythema, tonsillar hypertrophy or exudate. Airway patent. NECK: Trachea midline. Non tender CARDIOVASCULAR: Regular rate and rhythm without murmurs, gallops, or rubs. RESPIRATORY: Clear to auscultation. Breath sounds equal bilaterally. No wheezes, rales, or rhonchi. GASTROINTESTINAL: Abdomen soft, non-tender, nondistended. EXTREMITIES: No edema or joint tenderness. BACK: Nontender without deformity or crepitance. No flank tenderness. NEURO: AOx3. SKIN: No rash or erythema of visible areas Initial Vital Signs Initial Vital Signs: Vital Signs Temperature 98.6 F 09/28/21 17:25 Pulse Rate 80 09/28/21 17:25 Respiratory Rate 15 09/28/21 17:25 Blood Pressure 162/93 H 09/28/21 17:25 Pulse Oximetry 96 09/28/21 17:25 Oxygen Delivery Method 09/28/21 17:25 <Chauncey Hameed MD - Last Filed: 09/29/21 17:39> Initial Vital Signs Initial Vital Signs: Vital Signs Temperature 98.6 F 09/28/21 17:25 Pulse Rate 80 09/28/21 17:25 Respiratory Rate 15 09/28/21 17:25 Blood Pressure 162/93 H 09/28/21 17:25 Pulse Oximetry 96 09/28/21 17:25 Oxygen Delivery Method 09/28/21 17:25 Course <River Corona DO - Last Filed: 10/01/21 00:27> Orders Ordered: Discontinued Medications Aspirin (Aspirin 81 Mg Chew Tab) 324 mg PO NOW ONE Stop: 09/28/21 17:55 Last Admin: 09/28/21 17:59 Dose: 324 mg Documented By: ZAN Atorvastatin Calcium (Atorvastatin 20 Mg Tablet) 40 mg PO NOW ONE Stop: 09/28/21 19:31 Last Admin: 09/28/21 20:10 Dose: 40 mg Documented By: ZAN Heparin Sodium (Porcine) (Heparin 5,000 Unit/Ml Vial) 5,000 unit IV NOW ONE Stop: 09/28/21 19:31 Last Admin: 09/28/21 20:07 Dose: 5,000 unit Documented By: ZAN Heparin Sodium/Dextrose (Heparin Drip) 25,000 unit in 500 mls @ 20 mls/hr IV C ONT [facility]; Protocol Last Titration: 09/29/21 20:10 Dose: 1,100 units/hr, 22 mls/hr Documented By: Admin: 09/29/21 19:21 Dose: 1,100 units/hr, 22 mls/hr Documented By: Titration: 09/29/21 19:21 Dose: 1,100 units/hr, 22 mls/hr Documented By: JAutumn Titration: 09/29/21 15:37 Dose: 1,100 units/hr, 22 mls/hr Documented By: JAutumn Titration: 09/29/21 09:08 Dose: 1,050 units/hr, 21 mls/hr Documented By: Admin: 09/28/21 20:11 Dose: 1,000 units/hr, 20 mls/hr Documented By: ZAN Metoprolol Tartrate (Metoprolol Ir 25 Mg Tablet) 50 mg PO NOW ONE Stop: 09/28/21 19:31 Last Admin: 09/28/21 20:08 Dose: 50 mg Documented By: ZAN Nitroglycerin (Nitroglycerin 0.4 Mg Sl Tab) 0.4 mg SL [id number] PRN PRN Reason: Chest Pain Last Admin: 09/28/21 18:38 Dose: 0.4 mg Documented By: Admin: 09/28/21 18:16 Dose: 0.4 mg Documented By: Admin: 09/28/21 17:59 Dose: 0.4 mg Documented By: ZAN Reevaluation(s) Reevaluation #1: Patient pain reduced from a 4/10 to 2 or 3 after 2nd nitro Patient now pain-free after 3rd nitro Consultations Consultation #1: Discussed with on-call Cardiology at [facility] (Carlos Alberto) who agrees with diagnosis of unstable angina, use of aspirin, heparin drip, beta-blockers and statin. Recommends transfer to [facility]. During the conversation he was able to review notes from a visit there in November in which case an echocardiogram demonstrated reversible ischemia in the inferior distribution consistent with RCA disease. After discussion patient elected to pursue medical management at that time 2199 - [facility] currently no beds, possible acceptance tomorrow 2209 - on wait list at [place] and [facility] 0 - on wait list at [facility] Vital Signs Vital signs: Vital Signs - 8 hr 09/29/21 10:00 09/29/21 10:00 09/29/21 10:30 Pulse Rate 61 55 L Respiratory Rate 18 22 Blood Pressure 104/60 Pulse Oximetry 94 94 Oxygen Delivery Method 09/29/21 10:31 09/29/21 10:31 09/29/21 10:33 Pulse Rate 55 L Respiratory Rate 24 Blood Pressure 87/50 L 113/69 Pulse Oximetry 93 Oxygen Delivery Method 09/29/21 10:33 09/29/21 11:00 09/29/21 11:00 Pulse Rate 60 57 L Respiratory Rate 15 16 Blood Pressure 114/69 Pulse Oximetry 96 97 Oxygen Delivery Method 09/29/21 11:30 09/29/21 11:30 09/29/21 12:00 Pulse Rate 54 L Respiratory Rate 10 L Blood Pressure 102/69 106/64 Pulse Oximetry 95 Oxygen Delivery Method 09/29/21 12:00 09/29/21 12:30 09/29/21 12:31 Pulse Rate 54 L 55 L 55 L Respiratory Rate 16 16 18 Blood Pressure Pulse Oximetry 94 95 95 Oxygen Delivery Method 09/29/21 12:31 09/29/21 13:00 09/29/21 13:00 Pulse Rate 56 L Respiratory Rate 12 Blood Pressure 100/54 L 112/67 Pulse Oximetry 97 Oxygen Delivery Method 09/29/21 13:30 09/29/21 13:30 09/29/21 14:00 Pulse Rate 57 L Respiratory Rate 17 Blood Pressure 122/81 112/66 Pulse Oximetry 95 Oxygen Delivery Method 09/29/21 14:00 09/29/21 14:30 09/29/21 14:30 Pulse Rate 59 L 63 Respiratory Rate 17 18 Blood Pressure 122/79 Pulse Oximetry 95 95 Oxygen Delivery Method 09/29/21 15:00 09/29/21 15:00 09/29/21 15:30 Pulse Rate 62 Respiratory Rate 19 Blood Pressure 109/71 116/76 Pulse Oximetry 98 Oxygen Delivery Method 09/29/21 15:30 09/29/21 16:00 09/29/21 16:00 Pulse Rate 65 63 Respiratory Rate 19 19 Blood Pressure 114/64 Pulse Oximetry 96 94 Oxygen Delivery Method 09/29/21 16:30 09/29/21 16:30 Pulse Rate 63 Respiratory Rate 21 Blood Pressure 121/73 Pulse Oximetry 94 Oxygen Delivery Method Room Air <Chauncey Hameed MD - Last Filed: 09/29/21 17:39> Orders Ordered: Discontinued Medications Aspirin (Aspirin 81 Mg Chew Tab) 324 mg PO NOW ONE Stop: 09/28/21 17:55 Last Admin: 09/28/21 17:59 Dose: 324 mg Documented By: RL Atorvastatin Calcium (Atorvastatin 20 Mg Tablet) 40 mg PO NOW ONE Stop: 09/28/21 19:31 Last Admin: 09/28/21 20:10 Dose: 40 mg Documented By: ZAN Heparin Sodium (Porcine) (Heparin 5,000 Unit/Ml Vial) 5,000 unit IV NOW ONE Stop: 09/28/21 19:31 Last Admin: 09/28/21 20:07 Dose: 5,000 unit Documented By: ZAN Heparin Sodium/Dextrose (Heparin Drip) 25,000 unit in 500 mls @ 20 mls/hr IV CONT [facility]; Protocol Last Titration: 09/29/21 20:10 Dose: 1,100 units/hr, 22 mls/hr Documented By: Admin: 09/29/21 19:21 Dose: 1,100 units/hr, 22 mls/hr Documented By: Titration: 09/29/21 19:21 Dose: 1,100 units/hr, 22 mls/hr Documented By: Titration: 09/29/21 15:37 Dose: 1,100 units/hr, 22 mls/hr Documented By: Titration: 09/29/21 09:08 Dose: 1,050 units/hr, 21 mls/hr Documented By: Admin: 09/28/21 20:11 Dose: 1,000 units/hr, 20 mls/hr Documented By: ZAN Metoprolol Tartrate (Metoprolol Ir 25 Mg Tablet) 50 mg PO NOW ONE Stop: 09/28/21 19:31 Last Admin: 09/28/21 20:08 Dose: 50 mg Documented By: ZAN Nitroglycerin (Nitroglycerin 0.4 Mg Sl Tab) 0.4 mg SL [id number] PRN PRN Reason: Chest Pain Last Admin: 09/28/21 18:38 Dose: 0.4 mg Documented By: Admin: 09/28/21 18:16 Dose: 0.4 mg Documented By: Admin: 09/28/21 17:59 Dose: 0.4 mg Documented By: ZAN Reevaluation(s) Reevaluation #2: I saw the patient at 4:00 p.m.. I received sign-out from Dr. Corona. The patient is pain-free at this time. I spoke with Dr. Jennings hospitalist at [facility] and Dr. Oshea cardiology at [facility]. They are willing to accept the patient in transfer. Vital Signs Vital signs: Vital Signs - 8 hr 09/29/21 10:00 09/29/21 10:00 09/29/21 10:30 Pulse Rate 61 55 L Respiratory Rate 18 22 Blood Pressure 104/60 Pulse Oximetry 94 94 Oxygen Delivery Method 09/29/21 10:31 09/29/21 10:31 09/29/21 10:33 Pulse Rate 55 L Respiratory Rate 24 Blood Pressure 87/50 L 113/69 Pulse Oximetry 93 Oxygen Delivery Method 09/29/21 10:33 09/29/21 11:00 09/29/21 11:00 Pulse Rate 60 57 L Respiratory Rate 15 16 Blood Pressure 114/69 Pulse Oximetry 96 97 Oxygen Delivery Method 09/29/21 11:30 09/29/21 11:30 09/29/21 12:00 Pulse Rate 54 L Respiratory Rate 10 L Blood Pressure 102/69 106/64 Pulse Oximetry 95 Oxygen Delivery Method 09/29/21 12:00 09/29/21 12:30 09/29/21 12:31 Pulse Rate 54 L 55 L 55 L Respiratory Rate 16 16 18 Blood Pressure Pulse Oximetry 94 95 95 Oxygen Delivery Method 09/29/21 12:31 09/29/21 13:00 09/29/21 13:00 Pulse Rate 56 L Respiratory Rate 12 Blood Pressure 100/54 L 112/67 Pulse Oximetry 97 Oxygen Delivery Method 09/29/21 13:30 09/29/21 13:30 09/29/21 14:00 Pulse Rate 57 L Respiratory Rate 17 Blood Pressure 122/81 112/66 Pulse Oximetry 95 Oxygen Delivery Method 09/29/21 14:00 09/29/21 14:30 09/29/21 14:30 Pulse Rate 59 L 63 Respiratory Rate 17 18 Blood Pressure 122/79 Pulse Oximetry 95 95 Oxygen Delivery Method 09/29/21 15:00 09/29/21 15:00 09/29/21 15:30 Pulse Rate 62 Respiratory Rate 19 Blood Pressure 109/71 116/76 Pulse Oximetry 98 Oxygen Delivery Method 09/29/21 15:30 09/29/21 16:00 09/29/21 16:00 Pulse Rate 65 63 Respiratory Rate 19 19 Blood Pressure 114/64 Pulse Oximetry 96 94 Oxygen Delivery Method 09/29/21 16:30 09/29/21 16:30 Pulse Rate 63 Respiratory Rate 21 Blood Pressure 121/73 Pulse Oximetry 94 Oxygen Delivery Method Room Air MDM - Chest Pain <River Corona, - Last Filed: 10/01/21 00:27> Lab Data Result diagrams: 09/28/21 17:36 07/22/22 09:29 Labs: Lab Results 09/28/21 09/28/21 09/28/21 Range/Units 17:35 17:36 17:36 WBC 6.4 (4.5-11.0) X10^3/uL RBC 4.87 (4.5-5.9) X10^6/uL Hgb 13.0 L (13.5-17.5) g/dL Hct 38.1 L (41-53) % MCV 78.2 L (80-100) fL MCH 26.7 (26-34) PG MCHC 34.1 (30-36) % RDW 14.2 (11.6-14.8) % Plt Count 365 (150-400) X10^3/uL Neut % (Auto) 66.7 (50-75) % Lymph % (Auto) 25.6 (25-40) % Ponce % (Auto) 5.8 (3-14) % Eos % (Auto) 1.1 L (2-4) % Baso % (Auto) 0.8 (0-2) % Neut # (Auto) 4300 (4182-7460) /uL Lymph # (Auto) 1600 (5947-2762) /uL Ponce # (Auto) 400 (0-900) /uL Eos # (Auto) 100 (0-450) /uL Baso # (Auto) 0 (0-100) /uL APTT (26.4-36.2) SECONDS Sodium 135 L (137-145) mmol/L Potassium 4.4 (3.4-5.1) mmol/L Chloride 101 (98-107) mmol/L Carbon Dioxide 32 (22-32) mmol/L BUN 13 (9-20) mg/dL Creatinine 1.04 (0.66-1.25) mg/dL Estimated GFR > 60 (>60) mL/min BUN/Creatinine Ratio 12.5 (6-22) Glucose 119 H (70-100) mg/dL Calcium 8.6 (8.4-10.2) mg/dL Magnesium 2.0 (1.6-2.3) mg/dL Total Bilirubin 0.3 (0.2-1.3) mg/dL AST 28 (17-59) IU/L ALT 37 (<50) IU/L Alkaline Phosphatase 122 (38-126) U/L Total Creatine Kinase 125 (55-170) U/L CK-MB (CK-2) 0.92 (<2.37) ng/mL CK-MB (CK-2) Rel Index 0.7 L (1.5-5.0) % Troponin I < 0.012 (0.01-0.034) ng/mL NT-Pro-B Natriuret Pep < 11 (<125) pg/mL Total Protein 7.5 (6.3-8.2) g/dL Albumin 4.3 (3.5-5.0) g/dL Globulin 3.2 (1.7-4.1) g/dL Albumin/Globulin Ratio 1.3 (1.0-2.8) Lipase 75 (23-300) U/L SARS-CoV-2 (PCR) (Negative) 09/28/21 09/28/21 09/28/21 Range/Units 17:36 18:03 20:55 WBC (4.5-11.0) X10^3/uL RBC (4.5-5.9) X10^6/uL Hgb (13.5-17.5) g/dL Hct (41-53) % MCV (80-100) fL MCH (26-34) PG MCHC (30-36) % RDW (11.6-14.8) % Plt Count (150-400) X10^3/uL Neut % (Auto) (50-75) % Lymph % (Auto) (25-40) % Ponce % (Auto) (3-14) % Eos % (Auto) (2-4) % Baso % (Auto) (0-2) % Neut # (Auto) (7380-3794) /uL Lymph # (Auto) (5161-5779) /uL Ponce # (Auto) (0-900) /uL Eos # (Auto) (0-450) /uL Baso # (Auto) (0-100) /uL APTT 34 D (26.4-36.2) SECONDS Sodium (137-145) mmol/L Potassium (3.4-5.1) mmol/L Chloride (98-107) mmol/L Carbon Dioxide (22-32) mmol/L BUN (9-20) mg/dL Creatinine (0.66-1.25) mg/dL Estimated GFR (>60) mL/min BUN/Creatinine Ratio (6-22) Glucose (70-100) mg/dL Calcium (8.4-10.2) mg/dL Magnesium (1.6-2.3) mg/dL Total Bilirubin (0.2-1.3) mg/dL AST (17-59) IU/L ALT (<50) IU/L Alkaline Phosphatase (38-126) U/L Total Creatine Kinase 116 (55-170) U/L CK-MB (CK-2) 0.94 (<2.37) ng/mL CK-MB (CK-2) Rel Index 0.8 L (1.5-5.0) % Troponin I < 0.012 (0.01-0.034) ng/mL NT-Pro-B Natriuret Pep (<125) pg/mL Total Protein (6.3-8.2) g/dL Albumin (3.5-5.0) g/dL Globulin (1.7-4.1) g/dL Albumin/Globulin Ratio (1.0-2.8) Lipase (23-300) U/L SARS-CoV-2 (PCR) Negative (Negative) 09/29/21 09/29/21 09/29/21 Range/Units 01:20 07:45 09:29 WBC (4.5-11.0) X10^3/uL RBC (4.5-5.9) X10^6/uL Hgb (13.5-17.5) g/dL Hct (41-53) % MCV (80-100) fL MCH (26-34) PG MCHC (30-36) % RDW (11.6-14.8) % Plt Count (150-400) X10^3/uL Neut % (Auto) (50-75) % Lymph % (Auto) (25-40) % Ponce % (Auto) (3-14) % Eos % (Auto) (2-4) % Baso % (Auto) (0-2) % Neut # (Auto) (6847-0871) /uL Lymph # (Auto) (3910-1881) /uL Ponce # (Auto) (0-900) /uL Eos # (Auto) (0-450) /uL Baso # (Auto) (0-100) /uL APTT 51 H D 43 H D (26.4-36.2) SECONDS Sodium 137 (137-145) mmol/L Potassium 4.3 (3.4-5.1) mmol/L Chloride 102 (98-107) mmol/L Carbon Dioxide 28 (22-32) mmol/L BUN 14 (9-20) mg/dL Creatinine 1.04 (0.66-1.25) mg/dL Estimated GFR > 60 (>60) mL/min BUN/Creatinine Ratio 13.5 (6-22) Glucose 102 H (70-100) mg/dL Calcium 8.6 (8.4-10.2) mg/dL Magnesium (1.6-2.3) mg/dL Total Bilirubin (0.2-1.3) mg/dL AST (17-59) IU/L ALT (<50) IU/L Alkaline Phosphatase (38-126) U/L Total Creatine Kinase 413 H D (55-170) U/L CK-MB (CK-2) 4.99 H D (<2.37) ng/mL CK-MB (CK-2) Rel Index 1.2 L (1.5-5.0) % Troponin I < 0.012 (0.01-0.034) ng/mL NT-Pro-B Natriuret Pep (<125) pg/mL Total Protein (6.3-8.2) g/dL Albumin (3.5-5.0) g/dL Globulin (1.7-4.1) g/dL Albumin/Globulin Ratio (1.0-2.8) Lipase (23-300) U/L SARS-CoV-2 (PCR) (Negative) 09/29/21 Range/Units 15:00 WBC (4.5-11.0) X10^3/uL RBC (4.5-5.9) X10^6/uL Hgb (13.5-17.5) g/dL Hct (41-53) % MCV (80-100) fL MCH (26-34) PG MCHC (30-36) % RDW (11.6-14.8) % Plt Count (150-400) X10^3/uL Neut % (Auto) (50-75) % Lymph % (Auto) (25-40) % Ponce % (Auto) (3-14) % Eos % (Auto) (2-4) % Baso % (Auto) (0-2) % Neut # (Auto) (6554-1992) /uL Lymph # (Auto) (5124-9476) /uL Ponce # (Auto) (0-900) /uL Eos # (Auto) (0-450) /uL Baso # (Auto) (0-100) /uL APTT 40 H (26.4-36.2) SECONDS Sodium (137-145) mmol/L Potassium (3.4-5.1) mmol/L Chloride (98-107) mmol/L Carbon Dioxide (22-32) mmol/L BUN (9-20) mg/dL Creatinine (0.66-1.25) mg/dL Estimated GFR (>60) mL/min BUN/Creatinine Ratio (6-22) Glucose (70-100) mg/dL Calcium (8.4-10.2) mg/dL Magnesium (1.6-2.3) mg/dL Total Bilirubin (0.2-1.3) mg/dL AST (17-59) IU/L ALT (<50) IU/L Alkaline Phosphatase (38-126) U/L Total Creatine Kinase (55-170) U/L CK-MB (CK-2) (<2.37) ng/mL CK-MB (CK-2) Rel Index (1.5-5.0) % Troponin I (0.01-0.034) ng/mL NT-Pro-B Natriuret Pep (<125) pg/mL Total Protein (6.3-8.2) g/dL Albumin (3.5-5.0) g/dL Globulin (1.7-4.1) g/dL Albumin/Globulin Ratio (1.0-2.8) Lipase (23-300) U/L SARS-CoV-2 (PCR) (Negative) <Chauncey Hameed MD - Last Filed: 09/29/21 17:39> Lab Data Labs: Lab Results 09/28/21 09/28/21 09/28/21 Range/Units 17:35 17:36 17:36 WBC 6.4 (4.5-11.0) X10^3/uL RBC 4.87 (4.5-5.9) X10^6/uL Hgb 13.0 L (13.5-17.5) g/dL Hct 38.1 L (41-53) % MCV 78.2 L (80-100) fL MCH 26.7 (26-34) PG MCHC 34.1 (30-36) % RDW 14.2 (11.6-14.8) % Plt Count 365 (150-400) X10^3/uL Neut % (Auto) 66.7 (50-75) % Lymph % (Auto) 25.6 (25-40) % Ponce % (Auto) 5.8 (3-14) % Eos % (Auto) 1.1 L (2-4) % Baso % (Auto) 0.8 (0-2) % Neut # (Auto) 4300 (5213-0800) /uL Lymph # (Auto) 1600 (9397-2643) /uL Ponce # (Auto) 400 (0-900) /uL Eos # (Auto) 100 (0-450) /uL Baso # (Auto) 0 (0-100) /uL APTT (26.4-36.2) SECONDS Sodium 135 L (137-145) mmol/L Potassium 4.4 (3.4-5.1) mmol/L Chloride 101 (98-107) mmol/L Carbon Dioxide 32 (22-32) mmol/L BUN 13 (9-20) mg/dL Creatinine 1.04 (0.66-1.25) mg/dL Estimated GFR > 60 (>60) mL/min BUN/Creatinine Ratio 12.5 (6-22) Glucose 119 H (70-100) mg/dL Calcium 8.6 (8.4-10.2) mg/dL Magnesium 2.0 (1.6-2.3) mg/dL Total Bilirubin 0.3 (0.2-1.3) mg/dL AST 28 (17-59) IU/L ALT 37 (<50) IU/L Alkaline Phosphatase 122 (38-126) U/L Total Creatine Kinase 125 (55-170) U/L CK-MB (CK-2) 0.92 (<2.37) ng/mL CK-MB (CK-2) Rel Index 0.7 L (1.5-5.0) % Troponin I < 0.012 (0.01-0.034) ng/mL NT-Pro-B Natriuret Pep < 11 (<125) pg/mL Total Protein 7.5 (6.3-8.2) g/dL Albumin 4.3 (3.5-5.0) g/dL Globulin 3.2 (1.7-4.1) g/dL Albumin/Globulin Ratio 1.3 (1.0-2.8) Lipase 75 (23-300) U/L SARS-CoV-2 (PCR) (Negative) 09/28/21 09/28/21 09/28/21 Range/Units 17:36 18:03 20:55 WBC (4.5-11.0) X10^3/uL RBC (4.5-5.9) X10^6/uL Hgb (13.5-17.5) g/dL Hct (41-53) % MCV (80-100) fL MCH (26-34) PG MCHC (30-36) % RDW (11.6-14.8) % Plt Count (150-400) X10^3/uL Neut % (Auto) (50-75) % Lymph % (Auto) (25-40) % Ponce % (Auto) (3-14) % Eos % (Auto) (2-4) % Baso % (Auto) (0-2) % Neut # (Auto) (4549-9491) /uL Lymph # (Auto) (0874-3843) /uL Ponce # (Auto) (0-900) /uL Eos # (Auto) (0-450) /uL Baso # (Auto) (0-100) /uL APTT 34 D (26.4-36.2) SECONDS Sodium (137-145) mmol/L Potassium (3.4-5.1) mmol/L Chloride (98-107) mmol/L Carbon Dioxide (22-32) mmol/L BUN (9-20) mg/dL Creatinine (0.66-1.25) mg/dL Estimated GFR (>60) mL/min BUN/Creatinine Ratio (6-22) Glucose (70-100) mg/dL Calcium (8.4-10.2) mg/dL Magnesium (1.6-2.3) mg/dL Total Bilirubin (0.2-1.3) mg/dL AST (17-59) IU/L ALT (<50) IU/L Alkaline Phosphatase (38-126) U/L Total Creatine Kinase 116 (55-170) U/L CK-MB (CK-2) 0.94 (<2.37) ng/mL CK-MB (CK-2) Rel Index 0.8 L (1.5-5.0) % Troponin I < 0.012 (0.01-0.034) ng/mL NT-Pro-B Natriuret Pep (<125) pg/mL Total Protein (6.3-8.2) g/dL Albumin (3.5-5.0) g/dL Globulin (1.7-4.1) g/dL Albumin/Globulin Ratio (1.0-2.8) Lipase (23-300) U/L SARS-CoV-2 (PCR) Negative (Negative) 09/29/21 09/29/21 09/29/21 Range/Units 01:20 07:45 09:29 WBC (4.5-11.0) X10^3/uL RBC (4.5-5.9) X10^6/uL Hgb (13.5-17.5) g/dL Hct (41-53) % MCV (80-100) fL MCH (26-34) PG MCHC (30-36) % RDW (11.6-14.8) % Plt Count (150-400) X10^3/uL Neut % (Auto) (50-75) % Lymph % (Auto) (25-40) % Ponce % (Auto) (3-14) % Eos % (Auto) (2-4) % Baso % (Auto) (0-2) % Neut # (Auto) (6422-7791) /uL Lymph # (Auto) (4855-3894) /uL Ponce # (Auto) (0-900) /uL Eos # (Auto) (0-450) /uL Baso # (Auto) (0-100) /uL APTT 51 H D 43 H D (26.4-36.2) SECONDS Sodium 137 (137-145) mmol/L Potassium 4.3 (3.4-5.1) mmol/L Chloride 102 (98-107) mmol/L Carbon Dioxide 28 (22-32) mmol/L BUN 14 (9-20) mg/dL Creatinine 1.04 (0.66-1.25) mg/dL Estimated GFR > 60 (>60) mL/min BUN/Creatinine Ratio 13.5 (6-22) Glucose 102 H (70-100) mg/dL Calcium 8.6 (8.4-10.2) mg/dL Magnesium (1.6-2.3) mg/dL Total Bilirubin (0.2-1.3) mg/dL AST (17-59) IU/L ALT (<50) IU/L Alkaline Phosphatase (38-126) U/L Total Creatine Kinase 413 H D (55-170) U/L CK-MB (CK-2) 4.99 H D (<2.37) ng/mL CK-MB (CK-2) Rel Index 1.2 L (1.5-5.0) % Troponin I < 0.012 (0.01-0.034) ng/mL NT-Pro-B Natriuret Pep (<125) pg/mL Total Protein (6.3-8.2) g/dL Albumin (3.5-5.0) g/dL Globulin (1.7-4.1) g/dL Albumin/Globulin Ratio (1.0-2.8) Lipase (23-300) U/L SARS-CoV-2 (PCR) (Negative) 09/29/21 Range/Units 15:00 WBC (4.5-11.0) X10^3/uL RBC (4.5-5.9) X10^6/uL Hgb (13.5-17.5) g/dL Hct (41-53) % MCV (80-100) fL MCH (26-34) PG MCHC (30-36) % RDW (11.6-14.8) % Plt Count (150-400) X10^3/uL Neut % (Auto) (50-75) % Lymph % (Auto) (25-40) % Ponce % (Auto) (3-14) % Eos % (Auto) (2-4) % Baso % (Auto) (0-2) % Neut # (Auto) (2443-3163) /uL Lymph # (Auto) (9293-8790) /uL Ponce # (Auto) (0-900) /uL Eos # (Auto) (0-450) /uL Baso # (Auto) (0-100) /uL APTT 40 H (26.4-36.2) SECONDS Sodium (137-145) mmol/L Potassium (3.4-5.1) mmol/L Chloride (98-107) mmol/L Carbon Dioxide (22-32) mmol/L BUN (9-20) mg/dL Creatinine (0.66-1.25) mg/dL Estimated GFR (>60) mL/min BUN/Creatinine Ratio (6-22) Glucose (70-100) mg/dL Calcium (8.4-10.2) mg/dL Magnesium (1.6-2.3) mg/dL Total Bilirubin (0.2-1.3) mg/dL AST (17-59) IU/L ALT (<50) IU/L Alkaline Phosphatase (38-126) U/L Total Creatine Kinase (55-170) U/L CK-MB (CK-2) (<2.37) ng/mL CK-MB (CK-2) Rel Index (1.5-5.0) % Troponin I (0.01-0.034) ng/mL NT-Pro-B Natriuret Pep (<125) pg/mL Total Protein (6.3-8.2) g/dL Albumin (3.5-5.0) g/dL Globulin (1.7-4.1) g/dL Albumin/Globulin Ratio (1.0-2.8) Lipase (23-300) U/L SARS-CoV-2 (PCR) (Negative) Discharge Plan Departure Patient Disposition: [facility] Clinical Impression: Angina pectoris, unstable Prescriptions: No Action lisinopril 5 mg tablet 10 mg PO DAILY hydroxyzine HCl 50 mg tablet 50 mg PO BID buspirone 15 mg tablet 15 mg PO BID omeprazole 20 mg BID ketorolac 10 mg tablet 10 mg PO Q6H PRN (Reason: pain) Qty: 14 0RF lidocaine [Lidoderm] 5 % adhesive patch,medicated 1 patch TOP DAILY Qty: 15 0RF Rx Instructions: leave on most painful area for 12 hrs Referrals: Mady Kumar MD [Primary Care Provider] -
[2021-09-28 20:07] LABS: PTT Partial Thromboplastin Tim 34 SECONDS (26.4-36.2)
[2021-09-28] MEDS: HEPARIN 5,000 UNIT/ML VIAL 5000 UNIT IV (20:07)
[2021-09-28] MEDS: METOPROLOL IR 25 MG TABLET 50 MG PO (20:08)
[2021-09-28] MEDS: ATORVASTATIN 20 MG TABLET 40 MG PO (20:10)
[2021-09-28] MEDS: HEPARIN DRIP 25,000 UNIT/500 ML IV.SOLN 20 UNIT IV (20:11)
[2021-09-28 21:12] LABS: Creatine Kinase 116 U/L (55-170)
[2021-09-28 21:25] LABS: Troponin I < 0.012 ng/mL (0.01-0.034)
[2021-09-28 21:28] LABS: CKMB % Relative Index 0.8 % (1.5-5.0); Creatine Kinase MB 0.94 ng/mL (<2.37)
--- NOTE | 2021-09-28 22:35 | PC.NURSE ---
Called and placed patient on the transfer lists at: [facility]: on list [facility]: on list [place]: on list [place]: Not taking outside transfer at this time [facility]: on list [place]: on list
[2021-09-29] VITALS (49 sets, daily range): BP systolic 87–143; BP diastolic 50–86; PULSE 50–76; RESP 10–24; O2SAT 93–99
--- NOTE | 2021-09-29 01:26 | PC.NURSE ---
[facility] called to update on bed status, cardio stated they would not have a bed for tonight or possibly several days but would keep the patient on their list unless placement is found some place else.
[2021-09-29 01:39] LABS: PTT Partial Thromboplastin Tim 51 SECONDS (26.4-36.2)
--- NOTE | 2021-09-29 02:29 | PC.NURSE ---
Pt PTT drawn at 0140 was 51, no change to dose of heparin, next draw ordered for 0720.
[2021-09-29 08:01] LABS: PTT Partial Thromboplastin Tim 43 SECONDS (26.4-36.2)
[2021-09-29 09:51] LABS: BUN Creatinine Ratio 13.5 (6-22); Blood Urea Nitrogen 14 mg/dL (9-20); Calcium 8.6 mg/dL (8.4-10.2); Carbon Dioxide 28 mmol/L (22-32); Chloride 102 mmol/L (98-107); Creatine Kinase 413 U/L (55-170); Estimated Glomerular Filt Rate > 60 mL/min (>60); Glucose 102 mg/dL (70-100); HEMOLYSIS < 15 (0-50); Potassium 4.3 mmol/L (3.4-5.1); Sodium 137 mmol/L (137-145)
[2021-09-29 10:03] LABS: Troponin I < 0.012 ng/mL (0.01-0.034)
[2021-09-29 10:05] LABS: CKMB % Relative Index 1.2 % (1.5-5.0); Creatine Kinase MB 4.99 ng/mL (<2.37)
--- NOTE | 2021-09-29 13:37 | PC.NURSE ---
Pt given some snacks and water, diet ok'd by Dr Hameed. Pt instructed on no caffeine. Pt has no chest pain.
--- NOTE | 2021-09-29 15:08 | PC.NURSE ---
Pt given turkey sandwich and water. lab drawn from PIV and sent to lab.
[2021-09-29 15:27] LABS: PTT Partial Thromboplastin Tim 40 SECONDS (26.4-36.2)
[2021-09-29] MEDS: HEPARIN DRIP 25,000 UNIT/500 ML IV.SOLN 22 UNIT IV (19:21)
== END 2021-09-29 20:11 | disposition short-term general hospital (02) ==
PROVIDERS: Emergency Medicine; Emergency Provider Family Medicine Addiction Medicine; Family Provider Family Medicine; PCP Family Medicine
DX: I25.110 Atherosclerotic heart disease of native coronary artery with unstable angina pectoris (principal); Z20.822 Contact with and (suspected) exposure to COVID-19
CPT/HCPCS: 36415; 71045; 80048; 80053; 82550; 82553; 83690; 83735; 83880; 84484; 85025; 85730; 87635; 93005; 93010; 96365; 96366; 96375; 99284; C9803; J1644

== ENCOUNTER 2022-02-10 12:05 | Emergency (ER) | payer OTHER, SELFPAY ==
[2018-02-26 12:17] VITALS: BMI 40.7
[2022-02-10 12:29] VITALS: BP 144/67; RESP 24; TEMP 36.8; O2SAT 99; BMI 44.3
--- NOTE | 2022-02-10 12:51 | DI.RAD.S_ITS ---
PROCEDURE: XR CHEST 1V INDICATIONS: Chest pain TECHNIQUE: One view of the chest was acquired. COMPARISON: [facility], CR, XR CHEST 1V, 09/28/2021, 17:43. FINDINGS: Surgical changes and devices: None. Lungs and pleura: Lungs are clear. No pleural effusions or pneumothorax. Mediastinum: Mediastinal contours appear normal. Heart size is normal. Bones and chest wall: No suspicious bony lesions. Overlying soft tissues appear unremarkable. IMPRESSION: No acute cardiopulmonary process demonstrated radiographically. Dictated by: Valente Hartman M.D. on 02/10/2022 at 14:19 Approved by: Valente Hartman M.D. on 02/10/2022 at 14:20
[2022-02-10 13:38] LABS: Alanine Aminotransferase 33 IU/L (<50); Albumin 4.2 g/dL (3.5-5.0); Albumin Globulin Ratio 1.2 (1.0-2.8); Alkaline Phosphatase 130 U/L (38-126); Aspartate Aminotransferase 30 IU/L (17-59); BUN Creatinine Ratio 11.7 (6-22); Bilirubin Total 0.4 mg/dL (0.2-1.3); Blood Urea Nitrogen 11 mg/dL (9-20); Calcium 8.4 mg/dL (8.4-10.2); Carbon Dioxide 27 mmol/L (22-32); Chloride 101 mmol/L (98-107); Creatine Kinase 332 U/L (55-170); Estimated Glomerular Filt Rate > 60 mL/min (>60); Globulin 3.4 g/dL (1.7-4.1); Glucose 107 mg/dL (70-100); HEMOLYSIS < 15 (0-50); Lipase 62 U/L (23-300); Magnesium 2.1 mg/dL (1.6-2.3); Potassium 4.3 mmol/L (3.4-5.1); Sodium 136 mmol/L (137-145); Total Protein 7.6 g/dL (6.3-8.2)
[2022-02-10 13:45] LABS: Influenza A - CEPHEID Flu A NEGATIVE (NEGATIVE); Influenza B - CEPHEID Flu B NEGATIVE (NEGATIVE); Respiratory Syncytial Virus Negative (Negative)
[2022-02-10 13:46] LABS: COVID-19 CEPHEID 4-PLEX PCR Negative (Negative)
[2022-02-10 13:47] LABS: NT-proBNP (BNP-Adult 18+) 16 pg/mL (<125)
[2022-02-10 13:49] LABS: Troponin I < 0.012 ng/mL (0.01-0.034)
[2022-02-10 13:53] LABS: Add Manual Diff / Slide Review NO; Basophils Absolute Auto 100 /uL (0-100); Basophils Percent Auto 1.1 % (0-2); CKMB % Relative Index 0.6 % (1.5-5.0); Creatine Kinase MB 2.12 ng/mL (<2.37); Eosinophils Absolute Auto 200 /uL (0-450); Eosinophils Percent Auto 3.4 % (2-4); Hematocrit 37.9 % (41-53); Hemoglobin 12.6 g/dL (13.5-17.5); Lymphocytes Absolute Auto 1400 /uL (1100-4500); Lymphocytes Percent Auto 27.2 % (25-40); Mean Corpuscular HGB Conc 33.3 % (30-36); Mean Corpuscular Hemoglobin 26.1 PG (26-34); Mean Corpuscular Volume 78.2 fL (80-100); Monocytes Absolute Auto 300 /uL (0-900); Monocytes Percent Auto 6.7 % (3-14); Neutrophils Absolute Auto 3200 /uL (1500-7000); Neutrophils Percent Auto 61.6 % (50-75); Platelet Count 361 X10^3/uL (150-400); Red Blood Cell Count 4.85 X10^6/uL (4.5-5.9); Red Cell Distribution Width 14.3 % (11.6-14.8); White Blood Cell Count 5.1 X10^3/uL (4.5-11.0)
[2022-02-10 14:03] LABS: Prothrombin Time 11.4 SECONDS (10.1-12.7)
== END 2022-02-10 16:56 | disposition left against medical advice (07) ==
PROVIDERS: Nurse Practitioner Critical Care Medicine; Emergency Provider Emergency Medicine; Family Provider Family Medicine; PCP Family Medicine
DX: R07.9 Chest pain, unspecified (principal); R42 Dizziness and giddiness; Z53.21 Procedure and treatment not carried out due to patient leaving prior to being seen by health care provider
CPT/HCPCS: 0241U; 36415; 71045; 80053; 81003; 82550; 82553; 83690; 83735; 83880; 84484; 85025; 85610; 93005; 99284

== ENCOUNTER 2022-05-11 21:40 | Emergency (ER) | payer OTHER, SELFPAY ==
[2018-02-26 12:17] VITALS: BMI 40.7
--- NOTE | 2022-05-11 21:44 | DI.RAD.S_ITS ---
PROCEDURE: XR CHEST 2V INDICATIONS: cough, SOB TECHNIQUE: 2 views of the chest were acquired. COMPARISON: [facility], CR, XR CHEST 1V, 02/10/2022, 13:47. FINDINGS: Surgical changes and devices: None. Lungs and pleura: Lungs are clear. No pleural effusions or pneumothorax. Mediastinum: Mediastinal contours are normal. Heart size is normal. Bones and chest wall: No suspicious bony abnormalities. Soft tissues appear unremarkable. IMPRESSION: 1. No acute cardiopulmonary disease. Dictated by: Sameer Fuller M.D. on 05/11/2022 at 23:24 Approved by: Sameer Fuller M.D. on 05/11/2022 at 23:24
[2022-05-11 21:54] VITALS: BP 182/88; PULSE 67; RESP 19; TEMP 36.9; O2SAT 97; BMI 45.6
[2022-05-11 22:42] LABS: Influenza A - CEPHEID Flu A NEGATIVE (NEGATIVE); Influenza B - CEPHEID Flu B NEGATIVE (NEGATIVE); Respiratory Syncytial Virus Negative (Negative)
[2022-05-11 22:54] LABS: COVID-19 CEPHEID 4-PLEX PCR Negative (Negative)
--- NOTE | 2022-05-12 00:05 | ED_ITS ---
HPI - URI/Sore Throat General Chief Complaint: Upper Respiratory Symptoms Stated Complaint: Congestion Time Seen by Provider: 05/11/22 21:43 Source: patient Mode of arrival: Ambulatory History of Present Illness HPI Narrative: 56-year-old male former smoker with nasal congestion, headache, cough and concern of flu. His symptoms started last night. His biggest complaint is of nasal congestion. He denies any sore throat. He denies any cough or trouble breathing other than his inability to breathe through his nose. He is had no nausea or vomiting. He denies chest pain, dizziness, weakness or lightheadedness. He has been taking [id number] medications including Afrin, and Sudafed. Related Data Home Medications Medication Instructions Recorded Confirmed buspirone 15 mg tablet 15 mg PO BID 08/19/19 10/14/19 hydroxyzine HCl 50 mg tablet 50 mg PO BID 08/19/19 10/14/19 lisinopril 5 mg tablet 10 mg PO DAILY 08/19/19 10/14/19 omeprazole BID 08/27/19 10/14/19 Previous Rx's Medication Instructions Recorded ketorolac 10 mg tablet 10 mg PO Q6H PRN pain #14 tabs 04/13/21 lidocaine 5 % topical patch 1 patch topical DAILY #15 ea 04/13/21 (Lidoderm) fluticasone propionate 50 1 spray intranasal Q12H #16 grams 05/12/22 mcg/actuation nasal spray,suspension (Flonase Allergy Relief) Allergies Allergy/AdvReac Type Severity Reaction Status Date / Time codeine [CODEINE] Allergy Unknown Hives Verified 02/10/22 12:29 Review of Systems Review of Systems Narrative: GENERAL: See HPI HEENT: See HPI RESPIRATORY: See HPI CARDIOVASCULAR: Denies chest pain, palpitations, orthopnea, edema, GASTROINTESTINAL: Denies nausea, vomiting, abdominal pain, diarrhea, constipation, melena. : Denies dysuria, frequency, incontinence, hematuria, urinary retention. MUSCULOSKELETAL: denies weakness, joint pain, or bony pain SKIN: Denies rash, skin lesions, or other NEUROLOGIC: Denies weakness, headache, numbness, change in speech, confusion, seizures, incoordination. PSYCHIATRIC: No concerning psychosocial issues. 12 point review of systems is negative except for those stated above Patient History Medical History Acute appendicitis Coronary artery disease Diverticulitis Hypertension Shingles Surgical History Hx of appendectomy Family History Mother Hypertension Social History marital status: household members: spouse and children occupational status: previously employed Smoking Status: Former smoker alcohol intake: current substance use type: does not use Smoking Status: Former smoker tobacco type: cigarettes alcohol intake frequency: holidays/special occasions only Substance Use Type: marijuana and opiates Exam Narrative Exam Narrative: GENERAL: [56] year old patient appears stated age. Well-developed patient, in mild distress. HEAD: Atraumatic. Normocephalic. EYES: Pupils equal round and reactive. Extraocular motions intact. No scleral icterus. No injection or drainage. ENT: Nose without bleeding, purulent drainage, though clear nasal drainage is noted. Throat without erythema, tonsillar hypertrophy or exudate, clear postpharyngeal drainage. Airway patent. NECK: Trachea midline. Non tender CARDIOVASCULAR: Regular rate and rhythm without murmurs, gallops, or rubs. RESPIRATORY: Clear to auscultation. Breath sounds equal bilaterally. No wheezes, rales, or rhonchi. GASTROINTESTINAL: Abdomen soft, non-tender, nondistended. EXTREMITIES: No edema or joint tenderness. BACK: Nontender without deformity or crepitance. No flank tenderness. NEURO: AOx3. SKIN: No rash or erythema of visible areas Initial Vital Signs Initial Vital Signs: Vital Signs Temperature 98.4 F 05/11/22 21:54 Pulse Rate 67 05/11/22 21:54 Respiratory Rate 19 05/11/22 21:54 Blood Pressure 182/88 H 05/11/22 21:54 Pulse Oximetry 97 05/11/22 21:54 Oxygen Delivery Method Room Air 05/11/22 21:54 Course Orders Ordered: ED Orders 05/11/22 21:44 Chest [XR chest 2V] Stat 05/11/22 22:00 Covid-19 + FLU A/B + RSV - PCR Stat Vital Signs Vital signs: Vital Signs - 8 hr 05/12/22 00:42 Pulse Rate 71 Blood Pressure 150/83 H Pulse Oximetry 97 Oxygen Delivery Method Room Air MDM - URI/Sore Throat Lab Data Labs: Lab Results 05/11/22 Range/Units 22:00 SARS-CoV-2 (PCR) Negative (Negative) Influenza A (RT-PCR) Flu a negative (NEGATIVE) Influenza B (RT-PCR) Flu b negative (NEGATIVE) RSV (PCR) Negative (Negative) MDM Narrative Medical decision making narrative: [56] year old patient presents with nasal congestion Multiple etiologies for patient's symptoms considered including, but not limited to: [Flu, COVID, RSV versus other allergic or viral infectious etiology] Prior Charts reviewed in our EMR Primary Historian: patient Labs reviewed and interpreted by myself: Respiratory swab negative for COVID, flu and RSV Imaging reviewed: No obvious infiltrate Patient with nasal congestion since last night, no fever, no complaint of shortness of breath or cough, no vomiting or diarrhea, chest x-ray clear in vitals reassuring Findings and discharge diagnosis discussed with patient/family followed by verbalization of understanding Return precautions discussed with patient/family whom verbalize understanding of diagnosis and plan Discharge Plan Departure Patient Disposition: Home Clinical Impression: Viral URI Instructions: Common Cold Activity Restrictions/Additional Instructions: *You have been diagnosed with [various symptoms due to viral upper respiratory infection] *What to do: *Please consider the use of [id number] antihistamines such as cetirizine, srinivasa or zyrtec which can dry the secretions that are causing many of these symptoms. As we discussed, a tsp of honey is a great option to help with cough if needed. Fever: *Fever is temperature over 101F, it is a common feature of most viral and bacterial infections *Fever tends to come back once the Tylenol (acetaminophen) or Motrin (ibuprofen) wears off as these medications do not treat the underlying cause, just the fever itself *Treat the patient, not the number. If your child is running around and playing you don?t have to treat the fever, however, if they seem grumpy or uncomfortable it is reasonable to treat fever * your history and physical exam are very reassuring and there is no indication that the symptoms are due to a bacterial infection, therefore there is no indication for antibiotics. *Please follow up with your primary care provider in 2-3 days, call for an appointment. Let them know you were seen in the Emergency Department and that we ask that you be seen in follow up. We will electronically transmit a record of today's note if your PCP is in our system *If you do not have a primary care provider please contact the [facility] Resource line at [phone]. They will ask some questions about your medical history and help get you set up with a doctor in the community. *Return to Emergency Department if you should have any new, worsening or concerning symptoms increased work of breathing Prescriptions: New fluticasone propionate [Flonase Allergy Relief] 50 mcg/actuation spray,suspension 1 spray intranasal Q12H Qty: 16 0RF Rx Instructions: administer into each nostril No Action lisinopril 5 mg tablet 10 mg PO DAILY hydroxyzine HCl 50 mg tablet 50 mg PO BID buspirone 15 mg tablet 15 mg PO BID omeprazole 20 mg BID ketorolac 10 mg tablet 10 mg PO Q6H PRN (Reason: pain) Qty: 14 0RF lidocaine [Lidoderm] 5 % adhesive patch,medicated 1 patch TOP DAILY Qty: 15 0RF Rx Instructions: leave on most painful area for 12 hrs Referrals: Mady Kumar MD [Primary Care Provider] - Stand Alone Forms: Patient Portal/API
[2022-05-12 00:42] VITALS: BP 150/83; PULSE 71; O2SAT 97
== END 2022-05-12 00:45 | disposition home or self-care (01) ==
PROVIDERS: Emergency Provider Emergency Medicine; Family Provider Family Medicine; PCP Family Medicine
DX: J06.9 Acute upper respiratory infection, unspecified (principal); Z20.822 Contact with and (suspected) exposure to COVID-19
CPT/HCPCS: 0241U; 71046; 99281; 99283